=== PATIENT | female | born 1975 | race Caucasian/White ===

== ENCOUNTER 2017-09-17 13:12 | Inpatient (IN) | payer OTHER ==
--- NOTE | 2017-09-17 13:22 | ED PDOC ---
Arrival/HPI - General Chief Complaint: Chest Pain Time Seen by Provider: 09/17/17 13:13 Historian: Patient - History of Present Illness Narrative History of Present Illness (Text): 09/17/17 13:21 42 year old female, whose PMH includes hypertension and diabetes, who presents to the emergency department complaining of intermittent mid-sternal chest pain since two weeks. Patient reports the pain has become worse today with exertion and reported feeling faint this morning associated with palpitations. Patient states she has never done a seen a maintenance worker house trailer, has a stress test, or trestle mainternance laborer done. Patient denies headache, abdominal pain, nausea, vomiting, diarrhea, back pain, or other complaints. Patient also notes recently coming from [place]. Time/Duration: > week Symptom Onset: Gradual Symptom Course: Worsening Context: Exertion, Home Past Medical History - Provider Review Nursing Documentation Reviewed: Yes - Infectious Disease Hx of Infectious Diseases: None - Cardiac Hx Hypertension: Yes - Endocrine/Metabolic Hx Diabetes Mellitus Type 2: Yes - Psychiatric Hx Substance Use: No - Surgical History Hx Tubal Ligation: Yes Family/Social History - Physician Review Nursing Documentation Reviewed: Yes Family/Social History: CAD/ME (uncle) Smoking Status: Never Smoked Hx Alcohol Use: No Hx Substance Use: No Allergies/Home Meds Allergies/Adverse Reactions: Allergies No Known Allergies Allergy (Verified 09/17/17 16:29) Home Medications: Home Meds Medication Instructions Recorded Confirmed Enalapril Maleate [Vasotec] 1 tab PO DAILY 09/17/17 09/17/17 MetFORMIN [glucoPHAGE] 1 tab PO DAILY 09/17/17 09/17/17 Review of Systems - Review of Systems Constitutional: Fatigue ENT: absent: Sinus Congestion Respiratory: absent: Cough Cardiovascular: Chest Pain, Palpitations Gastrointestinal: absent: Abdominal Pain, Vomiting Genitourinary Female: absent: Dysuria Musculoskeletal: absent: Back Pain Skin: absent: Rash Neurological: absent: Headache Physical Exam Vital Signs Reviewed: Yes Vital Signs Temp Pulse Resp BP Pulse Ox 09/17/17 13:34 112 H 18 168/139 H 100 09/17/17 13:12 98.2 F 109 H 18 179/139 H 99 Temperature: Afebrile Blood Pressure: Hypertensive Pulse: Tachycardic Respiratory Rate: Normal Appearance: Positive for: Non-Toxic Mental Status: Positive for: Alert and Oriented X 3 - Systems Exam Head: Present: Atraumatic, Normocephalic Pupils: Present: PERRL Extroacular Muscles: Present: EOMI Conjunctiva: Present: Normal Respiratory/Chest: Present: Clear to Auscultation, Good Air Exchange. No: Respiratory Distress, Accessory Muscle Use, Wheezes, Decreased Breath Sounds, Rales, Retracting, Rhonchi Cardiovascular: Present: Regular Rate and Rhythm, Normal S1, S2. No: Murmurs Abdomen: Present: Normal Bowel Sounds. No: Tenderness, Distention, Peritoneal Signs, Rebound, Guarding Neurological: Present: GCS=15, CN II-XII Intact, Speech Normal Skin: Present: Warm, Dry, Normal Color. No: Rashes Psychiatric: Present: Alert, Oriented x 3, Normal Insight, Normal Concentration Medical Decision Making ED Course and Treatment: 09/17/17 Impression: 42 year old female with unremarkable physical exam c/o chest pain Plan: -- EKG -- Chest X-ray -- Labs -- Aspirin, Plavix -- Reassess and disposition Progress Notes: EKG done upon patient arrival. 09/17/17 13:19 EKG: Ordered, reviewed, and independently interpreted the EKG. Rate : 108 BPM Rhythm : tachycardia Interpretation : normal RI intervals. Prolonged QTc 495. ST elevation lead on leads V2-V5 consistent with anterior STEMI 09/17/17 13:28 Dr. Serna was contacted s/p EKG finding and will evaluate patient at bedside. IV x2 established. Patient placed on continuous cardiac monitoring. 09/17/17 13:28 CODE HEART was called at 13:28. Patient given ASA, Plavix, heparin, Integrillin. 09/17/17 13:42 Patient will be admitted to trestle mainternance laborer under Dr. Serna's care. To be admitted to hospitalist Dr. Olmedo post cath. - Critical Care Critical Care Minutes: 30 minutes Critical Care Time: Excluding Proc Time - Lab Interpretations Lab Results: 09/17/17 13:25 09/17/17 13:25 Lab Results 09/17/17 16:14: POC Glucose (mg/dL) 235 H 09/17/17 13:25: Sodium 135, Potassium 4.0, Chloride 92 L, Carbon Dioxide 25, Anion Gap 21 H, BUN 12, Creatinine 0.8, Est GFR ( Amer) > 60, Est GFR ( Non-Af Amer) > 60, Random Glucose 317 H*, Calcium 9.6, Total Bilirubin 0.8, AST 74 H, ALT 32, Alkaline Phosphatase 156 H, Lactate Dehydrogenase 611, Total Creatine Kinase 504 H, CK-MB (CK-2) 25.0 H, CK-MB (CK-2) % 5.0 H, Troponin I 1.64 H*, Total Protein 9.2 H, Albumin 5.0 H, Globulin 4.2, Albumin/Globulin Ratio 1.2 09/17/17 13:25: PT 11.8, INR 1.03 09/17/17 13:25: WBC 14.6 H, RBC 5.42, Hgb 13.1, Hct 40.6, MCV 74.9 L, MCH 24.2 L , MCHC 32.3, RDW 16.2 H, Plt Count 505 H, MPV 10.1, Gran % 75.0 H, Lymph % (Auto ) 19.9 L, [place] % (Auto) 4.5, Eos % (Auto) 0.3 L, Baso % (Auto) 0.3, Gran # 10.95 H, Lymph # (Auto) 2.9, [place] # (Auto) 0.7 H, Eos # (Auto) 0.0, Baso # (Auto ) 0.05 09/17/17 13:25: Blood Type O POSITIVE, Antibody Screen Negative, BBK History Checked No verified bt I have reviewed the lab results: Yes - RAD Interpretation Radiology Orders: 09/17/17 13:28 CHEST PORTABLE [RAD] Stat 09/17/17 16:59 LUNG PERF & VENT SCAN [NM] Urgent DUPLEX LOWER EXTRM VEIN BILAT [US] Routine Roof Fitter: Radiologist - EKG Interpretation Interpreted by ED Physician: Yes Type: 12 lead EKG - Medication Orders Current Medication Orders: Acetaminophen (Tylenol 325mg Tab) 650 mg PO Q4H PRN PRN Reason: for pain Albuterol/Ipratropium (Duoneb 3 Mg/0.5 Mg (3 Ml) Ud) 3 ml IH Q4H PRN PRN Reason: Shortness of Breath Alprazolam (Xanax) 0.25 mg PO BID PRN PRN Reason: Anxiety Stop: 09/24/17 15:13 Aspirin (Ecotrin) 81 mg PO DAILY MANUEL Atorvastatin Calcium (Lipitor) 80 mg PO DIN MANUEL Clopidogrel Bisulfate (Plavix) 75 mg PO DAILY MANUEL Docusate Sodium (Colace) 100 mg PO BID MANUEL Eptifibatide (Integrilin) 75 mg in 100 mls @ 12.628 mls/hr IV .Q7H56M MANUEL; 2 MCG/KG/MIN PRN Reason: Protocol Stop: 09/18/17 08:00 Last Admin: 09/17/17 15:15 Dose: 12.628 mls/hr eMAR Start Stop Document 09/17/17 15:15 OYELO (Rec: 09/17/17 15:43 [facility] [id number] Intravenous Solution Start Date 09/17/17 Start Time 15:15 Sodium Chloride (Sodium Chloride 0.9%) 1,000 mls @ 50 mls/hr IV .Q20H MANUEL Stop: 09/18/17 07:00 Last Admin: 09/17/17 15:44 Dose: 50 mls/hr eMAR Start Stop Document 09/17/17 15:44 OYELO (Rec: 09/17/17 15:44 OYELO [facility] [id number] Intravenous Solution Start Date 09/17/17 Start Time 15:40 Insulin Human Regular (Humulin R Low) 0 units SC ACHS MANUEL PRN Reason: Protocol Lisinopril (Zestril) 2.5 mg PO DAILY MANUEL Metoprolol Tartrate (Lopressor) 25 mg PO BID MANUEL Ondansetron HCl (Zofran Inj) 4 mg IV ONCE PRN PRN Reason: Nausea/Vomiting Last Admin: 09/17/17 17:16 Dose: 4 mg eMAR Start Stop Document 09/17/17 17:16 OYELO (Rec: 09/17/17 17:16 OYELO [facility] [id number]) Intravenous Solution Start Date 09/17/17 Start Time 17:16 Pantoprazole Sodium (Protonix Ec Tab) 40 mg PO 0600 MANUEL Zolpidem Tartrate (Ambien) 5 mg PO HS PRN PRN Reason: Insomnia Discontinued Medications Aspirin (Aspirin) 325 mg PO STAT STA Stop: 09/17/17 13:29 Last Admin: 09/17/17 13:33 Dose: Clopidogrel Bisulfate (Plavix) 600 mg PO STAT STA Stop: 09/17/17 13:29 Last Admin: 09/17/17 13:32 Dose: 600 mg Heparin Sodium (Porcine) (Heparin) 5,000 units IVP STAT STA PRN Reason: Protocol Stop: 09/17/17 13:37 Last Admin: 09/17/17 13:37 Dose: 5,000 units IVP Administration Document 09/17/17 13:37 SRE (Rec: 09/17/17 13:42 [id number] [id number]) Charges for Administration # of IVP Administrations 1 Insulin Human Regular (Humulin R Low) 0 units SC ACHS MANUEL PRN Reason: Protocol Last Admin: 09/17/17 16:35 Dose: 2 unit MAR Blood Glucose Document 09/17/17 16:35 OYELO (Rec: 09/17/17 16:35 OYELO [id number]) Blood Glucose Finger Stick Blood Glucose (70-120) 235 Subcutaneous Administrations Document 09/17/17 16:35 OYELO (Rec: 09/17/17 16:35 OYELO [id number]) Injection Site MAR Injection Site Right Arm Charges for Administration # of Subcutaneous Administrations 1 Metoprolol Tartrate (Lopressor) 5 mg IVP ONCE ONE Stop: 09/17/17 17:16 - Scribe Statement The provider has reviewed the documentation as recorded by the Wayne Bonner Provider Scribe Attestation: All medical record entries made by the Scribe were at my direction and personally dictated by me. I have reviewed the chart and agree that the record accurately reflects my personal performance of the history, physical exam, medical decision making, and the department course for this patient. I have also personally directed, reviewed, and agree with the discharge instructions and disposition. Disposition/Present on Arrival - Present on Arrival Any Indicators Present on Arrival: No History of DVT/PE: No History of Uncontrolled Diabetes: No Urinary Catheter: No History of Decub. Ulcer: No History Surgical Site Infection Following: None - Disposition Have Diagnosis and Disposition been Completed?: Yes Diagnosis: Acute ST elevation myocardial infarction (STEMI) Disposition: HOSPITALIZED Disposition Time: 13:42 Patient Plan: Admission Condition: GUARDED
[2017-09-17] MEDS ORDERED: Morphine 4 mg/ml ISec ONE ×2 (13:32→14:28)
[2017-09-17] MEDS ORDERED: Lidocaine PF 2% (5 ml) Inj (For Cardiac Arrhy) IV ONE (13:36)
[2017-09-17 13:37] LABS: BASO # 0.05 K/mm3 (0.0-2.0); BASO % 0.3 % (0.0-3.0); EOS % 0.3 % (1.5-5.0); GRAN # 10.95 (1.4-6.5); HEMOGLOBIN 13.1 g/dL (12.0-16.0); LYMPH # 2.9 (1.2-3.4); LYMPH % 19.9 % (22.0-35.0); MEAN CELL VOLUME 74.9 fl (80.0-105.0); MEAN CORPUSCULAR HEMOGLOBIN 24.2 pg (25.0-35.0); MEAN CORPUSCULAR HGB CONC 32.3 g/dl (31.0-37.0); MEAN PLATELET VOLUME 10.1 fl (7.0-11.0); MONO # 0.7 (0.1-0.6); MONO % 4.5 % (1.0-6.0); RBC 5.42 10^6/uL (3.5-6.1); RED CELL DISTRIBUTION WIDTH 16.2 % (11.5-14.5); WHITE BLOOD COUNT 14.6 10^3/ul (4.5-11.0)
[2017-09-17] MEDS ORDERED: Verapamil 2 ML ONE (13:39)
[2017-09-17] MEDS ORDERED: Nitroglycerin 50mg in D5W 50 MG/250 ML BOTTLE IV ONE (13:39)
[2017-09-17] MEDS ORDERED: Iodixanol 320 MG/ML 200 ML BOTTLE IV ONE (13:39)
[2017-09-17] MEDS ORDERED: Eptifibatide 20 mg/10mL Inj IVP ONE ×2 (13:39→13:58)
[2017-09-17] MEDS ORDERED: Iohexol 350mgl/ml 50 ML ONE (13:39)
[2017-09-17] MEDS ORDERED: Phenylephrine 10 mg/ml Inj ONE (13:41)
[2017-09-17 13:43] LABS: INR 1.03 (0.93-1.08); PROTHROMBIN TIME 11.8 SECONDS (9.4-12.5)
[2017-09-17 13:52] LABS: ALB/GLOB RATIO 1.2 (1.1-1.8); ALT/SGPT 32 U/L (7-56); AST/SGOT 74 U/L (14-36); BLOOD UREA NITROGEN 12 mg/dL (7-21); CALCIUM 9.6 mg/dL (8.4-10.5); GFR AFRICAN-AMERICAN > 60; GFR NON-AFRICAN AMERICAN > 60
--- NOTE | 2017-09-17 13:56 | RAD ---
Date of service: 09/17/2017 HISTORY: chest pain COMPARISON: No prior. FINDINGS: LUNGS: No active pulmonary disease. PLEURA: No significant pleural effusion identified, no pneumothorax apparent. CARDIOVASCULAR: Normal. OSSEOUS STRUCTURES: No significant abnormalities. VISUALIZED UPPER ABDOMEN: Normal. OTHER FINDINGS: None. IMPRESSION: No active disease.
[2017-09-17 13:59] LABS: TROPONIN I 1.64 ng/mL
[2017-09-17] MEDS ORDERED: Midazolam 2 MG/2 ML VIAL ONE (14:02)
[2017-09-17] MEDS ORDERED: Eptifibatide 0.75 mg/ml 75 MG/100 ML BOTTLE IV ONE (14:33)
[2017-09-17] MEDS ORDERED: Iodixanol 320 MG/ML 100 ML BOTTLE IV ONE (14:42)
[2017-09-17] MEDS ORDERED: Sodium Chloride 0.9% 1,000 ML IV SCH (15:15)
[2017-09-17] MEDS: Eptifibatide 0.75 mg/ml 75 MG/100 ML BOTTLE IV SCH ×2 (15:15→22:22)
--- NOTE | 2017-09-17 15:45 | CPOSTOP ---
DATE: 09/17/2017 CARDIOVASCULAR LAB POSTPROCEDURE NOTE DICTATING PHYSICIAN: Michael Serna MD HOOP MAKER HELPER MACHINE: MICHELLE Costa, instructional support technician. TYPE OF ANESTHESIA: Moderate conscious sedation, total 2 mg of Versed, 100 of fentanyl and 2 mg of morphine given periodically, started at 1 mg Versed and 50 fentanyl. PRE-PROCEDURE DIAGNOSES: Code ST elevation myocardial infarction, anterior wall myocardial infarction. PROCEDURES PERFORMED: 1. Left heart catheterization. 2. Stenting of left anterior descending. FINDINGS: Single-vessel left anterior descending disease. POST PROCEDURE CONDITION: Stable. VASCULAR ACCESS SITE: Left radial. CLOSURE DEVICE: TR band. TOTAL RADIATION DOSE: 10960.7 milligray unit. TOTAL FLUORO TIME: 13.6 minutes. Michael Serna MD
[2017-09-17] MEDS ORDERED: Albuterol-Ipratrop 3 mg / 0.5 (3 ml) UD IH PRN (15:59)
--- NOTE | 2017-09-17 16:02 | CP.CCUPN ---
CCU Subjective - Physician Review Subjective (Free Text): Shailesh Horner DO PGY-1, ICU consult note for Dr. Wilkins CC: chest pain This is a 42 year old [place] female who presented to the ED today for mid- sternal chest pain for the past 3 weeks. Pt described the pain as intermittent, 8/10 "squeezing" chest pain that radiates to the armpits and both sides of the neck. Pt states that the pain has been self-limited, and did not have any exacerbating or alleviating factors. Pt was evaluated at [facility] for the chest pain at the beginning of August, where she states she had a cxr and ecg which was "normal" and she was discharged home. At this point, she attributed the pain to reflux and took OTC medications, but the pain continued to return. This morning, pt developed weakness and dizziness, which went away on its own. However, this afternoon the pain did not go away on its own, and was worse on exertion/walking. Pt's EKG in the ED showed sinus tachycardia at [address] elevations in leads v2-v5. CODE HEART was called. She received ASA 325 mg PO, Plavix 600 mg PO and Morphine for pain. Pt was sent to the geotechnical laboratory technician, where she was found to have 100% occlusion of the LAD. She received balloon angioplasty of the LAD with placement of KULWINDER x2 in the LAD. She is currently on an Integrilin gtt. Pt was seen and examined at bedside. Pt states that the chest pain is currently rated a 2-3/10; "achy, crampy" in nature, nonradiating. But she reports she feels much better, other than mild fatigue. She endorses vaginal bleeding, and states that she is on her menstrual cycle. She denies fever, headache, dizziness , lightheadedness, abdominal pain, n/v/d, pain on urination, PMH: HTN, DM, Asthma, left sided evans's palsy, ectopic PSH: Tubal ligation (13 years ago) Meds: FHx: father hx of CVA at age 55; Mother hx of scleroderma CCU Objective - Vital Signs / Intake & Output Vital Signs (Last 4 hours): Vital Signs Temp Pulse Resp BP Pulse Ox 09/17/17 14:09 98.2 F 100 H 18 168/139 H 100 09/17/17 13:34 112 H 18 168/139 H 100 09/17/17 13:12 98.2 F 109 H 18 179/139 H 99 Intake and Output (Last 8hrs): Intake & Output 09/17/17 09/17/17 09/17/17 06:59 14:59 22:59 Weight 75.206 kg - Physical Exam Head: Positive for: Atraumatic, Normocephalic Pupils: Positive for: PERRL Extroacular Muscles: Positive for: EOMI Conjunctiva: Positive for: Normal Respiratory/Chest: Positive for: Clear to Auscultation, Good Air Exchange. Negative for: Respiratory Distress, Accessory Muscle Use, Wheezes, Decreased Breath Sounds, Rales, Retracting, Rhonchi Cardiovascular: Positive for: Regular Rate and Rhythm, Normal S1, S2. Negative for: Murmurs Abdomen: Positive for: Normal Bowel Sounds. Negative for: Tenderness, Distention, Peritoneal Signs, Rebound, Guarding Neurological: Positive for: GCS=15, CN II-XII Intact, Speech Normal Skin: Positive for: Warm, Dry, Normal Color. Negative for: Rashes Psychiatric: Positive for: Alert, Oriented x 3, Normal Insight, Normal Concentration - Medications Active Medications: Active Medications Generic Name Dose Route Start Last Admin Trade Name Freq PRN Reason Stop Dose Admin Acetaminophen 650 mg 09/17/17 15:12 Tylenol 325mg Tab PO Q4H PRN for pain Alprazolam 0.25 mg 09/17/17 15:12 Xanax PO 09/24/17 15:13 BID PRN Anxiety Aspirin 81 mg 09/18/17 10:00 Ecotrin PO DAILY [facility] Atorvastatin Calcium 80 mg 09/17/17 17:00 Lipitor PO DIN [facility] Clopidogrel Bisulfate 75 mg 09/18/17 10:00 Plavix PO DAILY [facility] Docusate Sodium 100 mg 09/17/17 18:00 Colace PO BID [facility] Eptifibatide 75 mg in 100 mls @ 12.628 mls/hr 09/17/17 13:45 09/17/17 15:15 Integrilin IV 09/18/17 08:00 12.628 mls/hr .Q7H56M MANUEL Administration Protocol 2 MCG/KG/MIN Sodium Chloride 1,000 mls @ 50 mls/hr 09/17/17 15:15 09/17/17 15:44 Sodium Chloride 0.9% IV 09/18/17 07:00 50 mls/hr .Q20H MANUEL Administration Insulin Human Regular 0 units 09/17/17 16:30 Humulin R Low SC ACHS [facility] Protocol Lisinopril 2.5 mg 09/18/17 10:00 Zestril PO DAILY MANUEL Metoprolol Tartrate 25 mg 09/17/17 18:00 Lopressor PO BID MANUEL Ondansetron HCl 4 mg 09/17/17 15:12 Zofran Inj IV ONCE PRN Nausea/Vomiting Zolpidem Tartrate 5 mg 09/17/17 15:12 Ambien PO HS PRN Insomnia - Patient Studies Lab Studies: Lab Studies 09/17/17 09/17/17 09/17/17 Range/Units 13:25 13:25 13:25 WBC 14.6 H (4.5-11.0) 10^3/ul RBC 5.42 (3.5-6.1) 10^6/uL Hgb 13.1 (12.0-16.0) g/dL Hct 40.6 (36.0-48.0) % MCV 74.9 L (80.0-105.0) fl MCH 24.2 L (25.0-35.0) pg MCHC 32.3 (31.0-37.0) g/dl RDW 16.2 H (11.5-14.5) % Plt Count 505 H (120.0-450.0) 10^3/uL MPV 10.1 (7.0-11.0) fl Gran % 75.0 H (50.0-68.0) % Lymph % (Auto) 19.9 L (22.0-35.0) % [place] % (Auto) 4.5 (1.0-6.0) % Eos % (Auto) 0.3 L (1.5-5.0) % Baso % (Auto) 0.3 (0.0-3.0) % Gran # 10.95 H (1.4-6.5) Lymph # (Auto) 2.9 (1.2-3.4) [place] # (Auto) 0.7 H (0.1-0.6) Eos # (Auto) 0.0 (0.0-0.7) Baso # (Auto) 0.05 (0.0-2.0) K/mm3 PT 11.8 (9.4-12.5) SECONDS INR 1.03 (0.93-1.08) Sodium 135 (132-148) mmol/L Potassium 4.0 (3.6-5.0) mmol/L Chloride 92 L (98-107) mmol/L Carbon Dioxide 25 (21-33) mmol/L Anion Gap 21 H (10-20) BUN 12 (7-21) mg/dL Creatinine 0.8 (0.7-1.2) mg/dl Est GFR ( Amer) > 60 Est GFR (Non-Af Amer) > 60 Random Glucose 317 H* (70-110) mg/dL Calcium 9.6 (8.4-10.5) mg/dL Total Bilirubin 0.8 (0.2-1.3) mg/dL AST 74 H (14-36) U/L ALT 32 (7-56) U/L Alkaline Phosphatase 156 H (38-126) U/L Lactate Dehydrogenase 611 (333-699) U/L Total Creatine Kinase 504 H (35-230) U/L CK-MB (CK-2) 25.0 H (0.0-3.6) ng/mL CK-MB (CK-2) % 5.0 H (2.5-3.0) % Troponin I 1.64 H* ng/mL Total Protein 9.2 H (5.8-8.3) g/dL Albumin 5.0 H (3.0-4.8) g/dL Globulin 4.2 gm/dL Albumin/Globulin Ratio 1.2 (1.1-1.8) Blood Type Antibody Screen BBK History Checked 09/17/17 Range/Units 13:25 WBC (4.5-11.0) 10^3/ul RBC (3.5-6.1) 10^6/uL Hgb (12.0-16.0) g/dL Hct (36.0-48.0) % MCV (80.0-105.0) fl MCH (25.0-35.0) pg MCHC (31.0-37.0) g/dl RDW (11.5-14.5) % Plt Count (120.0-450.0) 10^3/uL MPV (7.0-11.0) fl Gran % (50.0-68.0) % Lymph % (Auto) (22.0-35.0) % [place] % (Auto) (1.0-6.0) % Eos % (Auto) (1.5-5.0) % Baso % (Auto) (0.0-3.0) % Gran # (1.4-6.5) Lymph # (Auto) (1.2-3.4) [place] # (Auto) (0.1-0.6) Eos # (Auto) (0.0-0.7) Baso # (Auto) (0.0-2.0) K/mm3 PT (9.4-12.5) SECONDS INR (0.93-1.08) Sodium (132-148) mmol/L Potassium (3.6-5.0) mmol/L Chloride (98-107) mmol/L Carbon Dioxide (21-33) mmol/L Anion Gap (10-20) BUN (7-21) mg/dL Creatinine (0.7-1.2) mg/dl Est GFR ( Amer) Est GFR (Non-Af Amer) Random Glucose (70-110) mg/dL Calcium (8.4-10.5) mg/dL Total Bilirubin (0.2-1.3) mg/dL AST (14-36) U/L ALT (7-56) U/L Alkaline Phosphatase (38-126) U/L Lactate Dehydrogenase (333-699) U/L Total Creatine Kinase (35-230) U/L CK-MB (CK-2) (0.0-3.6) ng/mL CK-MB (CK-2) % (2.5-3.0) % Troponin I ng/mL Total Protein (5.8-8.3) g/dL Albumin (3.0-4.8) g/dL Globulin gm/dL Albumin/Globulin Ratio (1.1-1.8) Blood Type O POSITIVE Antibody Screen Negative BBK History Checked No verified bt Laboratory Results - last 24 hr 09/17/17 09/17/17 09/17/17 13:25 13:25 13:25 WBC 14.6 H RBC 5.42 Hgb 13.1 Hct 40.6 MCV 74.9 L MCH 24.2 L MCHC 32.3 RDW 16.2 H Plt Count 505 H MPV 10.1 Gran % 75.0 H Lymph % (Auto) 19.9 L [place] % (Auto) 4.5 Eos % (Auto) 0.3 L Baso % (Auto) 0.3 Gran # 10.95 H Lymph # (Auto) 2.9 [place] # (Auto) 0.7 H Eos # (Auto) 0.0 Baso # (Auto) 0.05 PT 11.8 INR 1.03 Sodium Potassium Chloride Carbon Dioxide Anion Gap BUN Creatinine Est GFR ( Amer) Est GFR (Non-Af Amer) Random Glucose Calcium Total Bilirubin AST ALT Alkaline Phosphatase Lactate Dehydrogenase Total Creatine Kinase CK-MB (CK-2) CK-MB (CK-2) % Troponin I Total Protein Albumin Globulin Albumin/Globulin Ratio Blood Type O POSITIVE Antibody Screen Negative BBK History Checked No verified bt 09/17/17 13:25 WBC RBC Hgb Hct MCV MCH MCHC RDW Plt Count MPV Gran % Lymph % (Auto) [place] % (Auto) Eos % (Auto) Baso % (Auto) Gran # Lymph # (Auto) [place] # (Auto) Eos # (Auto) Baso # (Auto) PT INR Sodium 135 Potassium 4.0 Chloride 92 L Carbon Dioxide 25 Anion Gap 21 H BUN 12 Creatinine 0.8 Est GFR ( Amer) > 60 Est GFR (Non-Af Amer) > 60 Random Glucose 317 H* Calcium 9.6 Total Bilirubin 0.8 AST 74 H ALT 32 Alkaline Phosphatase 156 H Lactate Dehydrogenase 611 Total Creatine Kinase 504 H CK-MB (CK-2) 25.0 H CK-MB (CK-2) % 5.0 H Troponin I 1.64 H* Total Protein 9.2 H Albumin 5.0 H Globulin 4.2 Albumin/Globulin Ratio 1.2 Blood Type Antibody Screen BBK History Checked EKG/Cardiology Studies: Cardiology / EKG Studies 09/17/17 13:28 ELECTROCARDIOGRAM Stat Comment: Reason For Exam: chest pain 09/17/17 15:10 ELECTROCARDIOGRAM Urgent Comment: 12 lead EKG upon arrival in unit Reason For Exam: post ptca 09/17/17 15:15 ELECTROCARDIOGRAM DAILY Comment: Reason For Exam: chest pain 09/18/17 08:00 EKG [ELECTROCARDIOGRAM] DAILY Comment: Code stemi Reason For Exam: CAD, S/p PTCA PERFORMING PHYSICIAN/PROVIDER:: Michael Serna 09/18/17 15:15 ELECTROCARDIOGRAM DAILY Comment: Reason For Exam: chest pain 09/19/17 08:00 EKG [ELECTROCARDIOGRAM] DAILY Comment: Code stemi Reason For Exam: CAD, S/p PTCA PERFORMING PHYSICIAN/PROVIDER:: Michael Serna 09/20/17 08:00 EKG [ELECTROCARDIOGRAM] DAILY Comment: Code stemi Reason For Exam: CAD, S/p PTCA PERFORMING PHYSICIAN/PROVIDER:: Michael Serna Critical Care Progress Note - Nutrition Nutrition: Nutrition Category Date Time Status Heart Healthy Diet [DIET] Diets 09/17/17 Dinner Active Liquid Diet [DIET] Diets 09/17/17 Lunch Ordered
--- NOTE | 2017-09-17 16:12 | CARD ---
APPROVED REPORT Date of service: 09/17/2017 EKG Measurement Heart [id number] <Conclusion> Age and gender specific ECG analysis Sinus tachycardia with fusion complexes Possible Left atrial enlargement Left ventricular hypertrophy Anteroseptal infarct, possibly acute Lateral injury pattern ACUTE HI Abnormal ECG
--- NOTE | 2017-09-17 16:12 | CARD ---
APPROVED REPORT Date of service: 09/17/2017 EKG Measurement Heart [id number] <Conclusion> Age and gender specific ECG analysis Sinus tachycardia Minimal voltage criteria for LVH, may be normal variant Anteroseptal infarct, possibly acute T wave abnormality, consider lateral ischemia ACUTE AR Abnormal ECG
--- NOTE | 2017-09-17 16:15 | CP.PCM.HP ---
<YonnyHuy - Last Filed: 09/17/17 16:55> History of Present Illness - History of Present Illness History of Present Illness: Huy Blancas D.O. PGY-2, Internal Medicine Resident, Art. on Duty HPI: Ms. Castro is a 42 year old female with a past medical history significant for NIDDM2, HTN, mild intermittent asthma and Burns's Palsy who presented for chest pain. Patient reports that three weeks ago she began to experience an intermittent substernal squeezing pressure-like chest pain that radiated to bilateral neck and upper extremities that she rated as a 8/10. She reports that the her pain was not associated specifically with any activity, eating or body position and that it would come at random times during the day. The pain was self limited, usually lasting around 7 minutes, and there were no aggravating or alleviating factors. She denies any associated symptoms prior to today. Patient believed the pain to be related to gastric reflux and reports no relief with OTC antacids. This morning when she awoke she began to experience the pain but that it was not self limited and was constant with associated dizziness, palpitations and generalized weakness. This prompted patient to be seen in the ED for further evaluation. Of note, she was seen two weeks ago at [facility] for the same symptoms and was discharged with a diagnosis of GERD. An EKG and Chest X-Ray were normal at that time, per patient. Also of note, patient is a resident of [place] and has been visiting family in [place] as well as [place]. She currently denies any other complaints including fever, chills, headache, changes in her vision, sore throat, lower extremity swelling, SOB, cough, wheezing, hemoptysis, abdominal pain, N/V/D/C, hematemesis, melena, changes in urine output, skin changes, or any numbness/tingling of any extremity. While in the ED, patient was found to ST elevation in leads V2-5 on 12-lead EKG and a Code Heart was called. She was given loading doses of both ASA and Plavix as well as started on an Integrilin drip prior to being emergently transferred to the cardiac laboratory administrative director. She was found to have complete occlusion of her pLAD, where two KULWINDER were placed, as well as stenosis of the dLAD, which was treated with balloon angioplasty. PMH: NIDDM2, HTN, mild intermittent asthma, ectopic and Burns's Palsy PSH: Tubal Ligation s/p ectopic (~15 years ago), three uncomplicated vaginal deliveries Family History: Mother-Scleroderma; Father-CVA at age 55 Social History: Denies tobacco, alcohol or illicit drug abuse; Lives in [place] with children; Employed as a [employer]ician Allergies: NKDA Home Medications: Enalapril, Metformin and albuterol inhaler PMD: Seen at unspecified clinic in [place] but patient reports that she hasn't been in a "long time" Javascript Software Engineer: None Present on Admission - Present on Admission Any Indicators Present on Admission: No Review of Systems - Review of Systems Review of Systems: As per HPI, otherwise negative Past Patient History - Infectious Disease Hx of Infectious Diseases: None - Past Social History Smoking Status: Never Smoked - CARDIAC Hx Hypertension: Yes - ENDOCRINE/METABOLIC Hx Diabetes Mellitus Type 2: Yes - PSYCHIATRIC Hx Substance Use: No - SURGICAL HISTORY Hx Tubal Ligation: Yes Meds Allergies/Adverse Reactions: Allergies Allergy/AdvReac Type Severity Reaction Status Date / Time No Known Allergies Allergy Verified 09/17/17 16:29 Physical Exam - Constitutional Appears: Non-toxic, No Acute Distress - Head Exam Head Exam: ATRAUMATIC, NORMOCEPHALIC - Eye Exam Eye Exam: EOMI, Normal appearance, PERRL Pupil Exam: NORMAL ACCOMODATION, PERRL - ENT Exam ENT Exam: Mucous Membranes Moist, Normal Exam - Neck Exam Neck exam: Positive for: Full Rom, Normal Inspection. Negative for: Lymphadenopathy, Tenderness - Respiratory Exam Respiratory Exam: Clear to Auscultation Bilateral, NORMAL BREATHING PATTERN. absent: Accessory Muscle Use, Decreased Breath Sounds, Rhonchi, Wheezes, Respiratory Distress - Cardiovascular Exam Cardiovascular Exam: Tachycardia, REGULAR RHYTHM, +S1, +S2. absent: Bradycardia , JVD, Rubs - GI/Abdominal Exam GI & Abdominal Exam: Normal Bowel Sounds, Soft. absent: Tenderness - Extremities Exam Extremities exam: Positive for: normal capillary refill, normal inspection (TR band to left upper extremity with no surrounding erythema, signs of hematoma, or discharge; Distal pulses and sensation in LUE intact), pedal pulses present. Negative for: calf tenderness, joint swelling, pedal edema, tenderness - Neurological Exam Neurological exam: Alert, Oriented x3 - Psychiatric Exam Psychiatric exam: Normal Affect, Normal Mood - Skin Skin Exam: Dry, Intact, Normal Color, Warm Results - Vital Signs Recent Vital Signs: Last Vital Signs Temp 98.2 F 09/17/17 14:09 Pulse 100 H 09/17/17 14:09 Resp 18 09/17/17 14:09 BP 168/139 H 09/17/17 14:09 Pulse Ox 100 09/17/17 14:09 - Labs Result Diagrams: 09/17/17 13:25 09/17/17 13:25 Labs: Laboratory Results - last 24 hr 09/17/17 09/17/17 09/17/17 13:25 13:25 13:25 WBC 14.6 H RBC 5.42 Hgb 13.1 Hct 40.6 MCV 74.9 L MCH 24.2 L MCHC 32.3 RDW 16.2 H Plt Count 505 H MPV 10.1 Gran % 75.0 H Lymph % (Auto) 19.9 L [place] % (Auto) 4.5 Eos % (Auto) 0.3 L Baso % (Auto) 0.3 Gran # 10.95 H Lymph # (Auto) 2.9 [place] # (Auto) 0.7 H Eos # (Auto) 0.0 Baso # (Auto) 0.05 PT 11.8 INR 1.03 Sodium Potassium Chloride Carbon Dioxide Anion Gap BUN Creatinine Est GFR ( Amer) Est GFR (Non-Af Amer) Random Glucose Calcium Total Bilirubin AST ALT Alkaline Phosphatase Lactate Dehydrogenase Total Creatine Kinase CK-MB (CK-2) CK-MB (CK-2) % Troponin I Total Protein Albumin Globulin Albumin/Globulin Ratio Blood Type O POSITIVE Antibody Screen Negative BBK History Checked No verified bt 09/17/17 13:25 WBC RBC Hgb Hct MCV MCH MCHC RDW Plt Count MPV Gran % Lymph % (Auto) [place] % (Auto) Eos % (Auto) Baso % (Auto) Gran # Lymph # (Auto) [place] # (Auto) Eos # (Auto) Baso # (Auto) PT INR Sodium 135 Potassium 4.0 Chloride 92 L Carbon Dioxide 25 Anion Gap 21 H BUN 12 Creatinine 0.8 Est GFR ( Amer) > 60 Est GFR (Non-Af Amer) > 60 Random Glucose 317 H* Calcium 9.6 Total Bilirubin 0.8 AST 74 H ALT 32 Alkaline Phosphatase 156 H Lactate Dehydrogenase 611 Total Creatine Kinase 504 H CK-MB (CK-2) 25.0 H CK-MB (CK-2) % 5.0 H Troponin I 1.64 H* Total Protein 9.2 H Albumin 5.0 H Globulin 4.2 Albumin/Globulin Ratio 1.2 Blood Type Antibody Screen BBK History Checked Assessment & Plan - Assessment and Plan (Free Text) Assessment: 42 year old female with a past medical history significant for NIDDM2, HTN, mild intermittent asthma and Burns's Palsy who presented for chest pain while visiting from [place]. While in the ED, patient was found to ST elevation in leads V2-5 on 12-lead EKG and a Code Heart was called. She was given loading doses of both ASA and Plavix as well as started on an Integrilin drip prior to being emergently transferred to the cardiac laboratory administrative director. She was found to have complete occlusion of her pLAD, where two KULWINDER were placed, as well as stenosis of the dLAD, which was treated with balloon angioplasty. Plan: 1. Acute MA w/ Complete LAD Occlusion s/p Angioplasty and two KULWINDER -EKG showed sinus tachycardia with ST elevation in leads V2-5 -Troponin elevated at 1.64 with serial troponins pending -Lipid panel, A1c and TSH pending -Integrilin gtt for 18 hours -Lopressor 25mg BID and daily low dose ASA, Plavix, Lipitor, and Lisinopril -Ambien, Xanax and Tylenol PRN -Normal Saline at 50mls/hr -AM EKG and Echo pending -Cardiology consulted, all recommendations appreciated 2. R/O Pulmonary Embolism -Continued angina in setting of tachycardia and recent travel -V/Q Scan and LE Doppler ordered and pending 3. History of NIDDM2 -SSI-Low and Accuchecks ACHS -A1c pending -Physician Support Coordinator consulted, all recommendations appreciated 4. History of Asthma -Duonebs PRN Diet: Heart Healthy/Moderate Carbohydrate Consistent GI Prophylaxis: Protonix DVT Prophylaxis: Heparin Patient seen and case discussed with attending, Dr. Jansen. Lorri PGY2 - Date & Time Date: 09/17/17 Time: 16:24 <Geetha Jansen - Last Filed: 09/18/17 12:33> Results - Vital Signs Recent Vital Signs: Last Vital Signs Temp 98.2 F 09/17/17 23:10 Pulse 113 H 09/18/17 09:25 Resp 19 09/17/17 22:40 BP 119/54 L 09/18/17 09:25 Pulse Ox 100 09/17/17 22:40 - Labs Result Diagrams: 09/18/17 06:10 09/18/17 06:10 Labs: Laboratory Results - last 24 hr 09/17/17 09/17/17 09/17/17 13:25 13:25 13:25 WBC 14.6 H RBC 5.42 Hgb 13.1 Hct 40.6 MCV 74.9 L MCH 24.2 L MCHC 32.3 RDW 16.2 H Plt Count 505 H MPV 10.1 Gran % 75.0 H Lymph % (Auto) 19.9 L [place] % (Auto) 4.5 Eos % (Auto) 0.3 L Baso % (Auto) 0.3 Gran # 10.95 H Lymph # (Auto) 2.9 [place] # (Auto) 0.7 H Eos # (Auto) 0.0 Baso # (Auto) 0.05 PT 11.8 INR 1.03 Sodium Potassium Chloride Carbon Dioxide Anion Gap BUN Creatinine Est GFR ( Amer) Est GFR (Non-Af Amer) POC Glucose (mg/dL) Random Glucose Calcium Phosphorus Magnesium Total Bilirubin AST ALT Alkaline Phosphatase Lactate Dehydrogenase Total Creatine Kinase CK-MB (CK-2) CK-MB (CK-2) % Troponin I Total Protein Albumin Globulin Albumin/Globulin Ratio Triglycerides Cholesterol LDL Cholesterol Direct HDL Cholesterol TSH 3rd Generation Blood Type O POSITIVE Blood Type Confirm Antibody Screen Negative BBK History Checked No verified bt 09/17/17 09/17/17 09/17/17 13:25 16:14 19:30 WBC RBC Hgb Hct MCV MCH MCHC RDW Plt Count MPV Gran % Lymph % (Auto) [place] % (Auto) Eos % (Auto) Baso % (Auto) Gran # Lymph # (Auto) [place] # (Auto) Eos # (Auto) Baso # (Auto) PT INR Sodium 135 Potassium 4.0 Chloride 92 L Carbon Dioxide 25 Anion Gap 21 H BUN 12 Creatinine 0.8 Est GFR ( Amer) > 60 Est GFR (Non-Af Amer) > 60 POC Glucose (mg/dL) 235 H Random Glucose 317 H* Calcium 9.6 Phosphorus Magnesium Total Bilirubin 0.8 AST 74 H ALT 32 Alkaline Phosphatase 156 H Lactate Dehydrogenase 611 Total Creatine Kinase 504 H CK-MB (CK-2) 25.0 H CK-MB (CK-2) % 5.0 H Troponin I 1.64 H* Total Protein 9.2 H Albumin 5.0 H Globulin 4.2 Albumin/Globulin Ratio 1.2 Triglycerides Cholesterol LDL Cholesterol Direct HDL Cholesterol [facility] Blood Type Blood Type Confirm O POSITIVE Antibody Screen BBK History Checked 09/17/17 09/17/17 09/17/17 19:30 19:30 21:43 WBC 16.7 H RBC 4.98 Hgb 12.1 Hct 37.4 MCV 75.1 L MCH 24.3 L MCHC 32.4 RDW 16.2 H Plt Count 449 MPV 9.9 Gran % 75.8 H Lymph % (Auto) 16.3 L [place] % (Auto) 7.6 H Eos % (Auto) 0.1 L Baso % (Auto) 0.2 Gran # 12.62 H Lymph # (Auto) 2.7 [place] # (Auto) 1.3 H Eos # (Auto) 0.0 Baso # (Auto) 0.03 PT INR Sodium 131 L Potassium 3.5 L Chloride 92 L Carbon Dioxide 27 Anion Gap 16 BUN 12 Creatinine 0.7 Est GFR ( Amer) > 60 Est GFR (Non-Af Amer) > 60 POC Glucose (mg/dL) 267 H Random Glucose 337 H* Calcium 8.4 Phosphorus Magnesium Total Bilirubin AST ALT Alkaline Phosphatase Lactate Dehydrogenase 6365 H Total Creatine Kinase 40595 H CK-MB (CK-2) 291.0 H CK-MB (CK-2) % 2.6 Troponin I 327.00 H* D Total Protein Albumin Globulin Albumin/Globulin Ratio Triglycerides Cholesterol LDL Cholesterol Direct HDL Cholesterol TSH [address] [place] [address] Blood Type Blood Type Confirm Antibody Screen BBK History Checked 09/18/17 09/18/17 09/18/17 06:10 06:10 06:10 WBC 13.9 H RBC 4.60 Hgb 11.4 L Hct 34.0 L MCV 73.9 L MCH 24.8 L MCHC 33.5 RDW 16.0 H Plt Count 413 MPV 9.8 Gran % 65.0 Lymph % (Auto) 24.2 [place] % (Auto) 10.4 H Eos % (Auto) 0.2 L Baso % (Auto) 0.2 Gran # 9.03 H Lymph # (Auto) 3.4 [place] # (Auto) 1.4 H Eos # (Auto) 0.0 Baso # (Auto) 0.03 PT INR Sodium 132 Potassium 3.8 Chloride 94 L Carbon Dioxide 31 Anion Gap 11 BUN 12 Creatinine 0.8 Est GFR ( Amer) > 60 Est GFR (Non-Af Amer) > 60 POC Glucose (mg/dL) Random Glucose 278 H Calcium 8.5 Phosphorus 3.0 Magnesium 1.8 Total Bilirubin 1.1 AST 730 H D ALT 118 H Alkaline Phosphatase 109 Lactate Dehydrogenase 6240 H Total Creatine Kinase 5623 H CK-MB (CK-2) 131.0 H CK-MB (CK-2) % 2.3 L Troponin I 212.00 H* D Total Protein 6.7 Albumin 3.7 Globulin 3.0 Albumin/Globulin Ratio 1.2 Triglycerides 165 H Cholesterol 171 LDL Cholesterol Direct 109 HDL Cholesterol 40 TSH 3rd Generation 1.45 Blood Type Blood Type Confirm Antibody Screen BBK History Checked 09/18/17 07:34 WBC RBC Hgb Hct MCV MCH MCHC RDW Plt Count MPV Gran % Lymph % (Auto) [place] % (Auto) Eos % (Auto) Baso % (Auto) Gran # Lymph # (Auto) [place] # (Auto) Eos # (Auto) Baso # (Auto) PT INR Sodium Potassium Chloride Carbon Dioxide Anion Gap BUN Creatinine Est GFR ( Amer) Est GFR (Non-Af Amer) POC Glucose (mg/dL) 257 H Random Glucose Calcium Phosphorus Magnesium Total Bilirubin AST ALT Alkaline Phosphatase Lactate Dehydrogenase Total Creatine Kinase CK-MB (CK-2) CK-MB (CK-2) % Troponin I Total Protein Albumin Globulin Albumin/Globulin Ratio Triglycerides Cholesterol LDL Cholesterol Direct HDL Cholesterol TSH 3rd Generation Blood Type Blood Type Confirm Antibody Screen BBK History Checked Attending/Attestation - Attestation I have personally seen and examined this patient.: Yes I have fully participated in the care of the patient.: Yes I have reviewed all pertinent clinical information: Yes Notes (Text): Patient seen and examined by me at 17:00 with resident 09/17/17. Case including HPI, physical exam, and physical assessment and plan discussed with resident. Agree with above with following additions/corrections. Patient is a 42-year-old female with past medical history significant for non- insulin-dependent type 2 diabetes, hypertension, mild intermittent asthma, and Burns's palsy that presented to the emergency room with left-sided chest pain. Patient states that the pain started approximately 3 weeks ago. Pain has been intermittent. Pressure-like in nature and lasting approximately 7 minutes. She was seen at [facility] in [place] approximately 2 weeks ago. At that time she was diagnosed with GERD and was given treatment for GERD. Patient states that her EKG at that time was normal. The pain continued. Morning of admission patient states that the pain became constant and radiating to her jaw and bilateral arms. Patient did not try anything at home for this. She did have associated diaphoresis. She also had associated dizziness. Patient recently traveled here from [place]. She denies any previous history of chest pain. No nausea, vomiting, or abdominal pain. No fevers or chills. No palpitations. No neck pain or back pain. No dysuria. No diarrhea or constipation. Patient does not diet and exercise at home. She states that she takes metformin for diabetes however her blood sugars usually run in the 200s. In the ED, patient was found to have STEMI. Patient was given aspirin and Plavix and was started on Integrilin drip. Patient was taken to cardiac laboratory administrative director. All 14 point review of systems reviewed by me. See above HPI. All the other systems are negative. Physical exam: Gen: Awake and alert lying in bed in no acute distress HEENT: Normocephalic, atraumatic. Extraocular muscles intact, pupils equal reactive, no scleral icterus. Oropharynx is pink and moist, no pharyngeal erythema or exudate appreciated. Neck is supple. Hearing grossly intact. Ears and nose externally unremarkable. Cardiovascular: Normal rhythm, normal S1-S2. No murmurs, rubs, or gallops appreciated Pulmonary: Normal respiratory effort. No rhonchi, rales or wheezing appreciated. Gastrointestinal: Soft, nontender, nondistended, positive bowel sounds all 4 quadrants, no guarding Musculoskeletal: Normal range of motion all extremities, no calf tenderness, no CVA tenderness. Positive TR band left wrist in place. Central nervous system: AAO 3. Cranial nerves 2 through 12 grossly intact. 5 out of 5 muscle strength all extremities. Sensation intact. Dermatologic: Skin warm and dry Assessment and plan: Patient is a 42-year-old female with past medical history significant for [id number] type 2 diabetes, hypertension, mild intermittent asthma, and Burns's palsy that presented to the emergency room with left-sided chest pain. Patient found to have an acute MA. 1. STEMI, status post cardiac cath which showed complete occlusion of pLAD, s/p KULWINDER x 2; stenosis of the dLAD, which was treated with balloon angioplasty. Troponin elevated at 1.64. Elevated CK. Follow-up lipid panel, hemoglobin A1c, and TSH. Continue with Integrilin drip. Continue aspirin, Plavix, Lipitor, Lopressor, and lisinopril. Pending 2-D echo. Cardiology following, recommendations appreciated. Monitor in ICU for now. 2. Sinus tachycardia. Patient with recent travel. Will get VQ scan. Monitor on telemetry 3. Leukocytosis. Likely reactive. Continue to monitor 4. [id number] type 2 diabetes with hyperglycemia. Patient takes metformin at home, she is unsure of the dose. Patient states her blood sugars run in the 200s at home. We'll place on insulin sliding scale for now. Follow- up hemoglobin A1c and add medications as needed. Monitor Accu-Cheks. Patient counseled on diet and exercise 5. Essential hypertension. Placed on Lopressor and lisinopril. Patient takes enalapril at home 6. History of asthma. Patient is asymptomatic. Continue to monitor for now. O2 via nasal cannula as needed. Nebulizer treatments as needed 7. DVT prophylaxis. Patient is on Integrilin drip. SCDs bilaterally Case was discussed in detail with the patient and medical office specialist regarding current diagnosis and treatment plan.
--- NOTE | 2017-09-17 16:16 | CP.PCM.CON ---
<Shailseh Horner - Last Filed: 09/17/17 17:29> History of Present Illness - History of Present Illness History of Present Illness: Shailesh Evens DO PGY-1, ICU consult note for Dr. Wilkins CC: chest pain This is a 42 year old Indian female who presented to the ED today for mid- sternal chest pain for the past 3 weeks. Pt described the pain as intermittent, 8/10 "squeezing" chest pain with palpitations that radiates to the armpits and both sides of the neck. Pt states that the pain has been self-limited, and did not have any exacerbating or alleviating factors. Pt was evaluated at [facility] for the chest pain at the beginning of August, where she states she had a cxr and ecg which was "normal" and she was discharged home. At this point, she attributed the pain to reflux and took OTC medications, but the pain continued to return. This morning, pt developed weakness and dizziness, which went away on its own. However, this afternoon the pain did not go away on its own, and was worse on exertion/walking, which prompted her to come to the ED. Pt 's EKG in the ED showed sinus tachycardia at [address] elevations in leads v2- v5. [facility] was called. She received ASA 325 mg PO, Plavix 600 mg PO and Morphine for pain. Pt was sent [facility], where she was found to have 100 % occlusion of the LAD. She received balloon angioplasty of the LAD with placement of KULWINDER x2 in the LAD. She is currently on an Integrilin gtt. Pt was seen and examined at bedside. Pt states that the chest pain is currently rated a 2-3/10; "achy, crampy" in nature, nonradiating. She reports she feels much better, other than mild fatigue. She endorses vaginal bleeding, and states that she is currently on her menstrual cycle. She denies fever, headache, dizziness, lightheadedness, shortness of breath, abdominal pain, n/v/d, pain on urination, hematemasis, melena, hematochezia. PMH: HTN, DM, Asthma, left sided evans's palsy, ectopic PSH: Tubal ligation (13 years ago) Meds: Enalapril (not sure of dose), Metformin (not sure of dose), Albuterol INH PRN (hasn't used her inhaler in a while) Allx: NKDA FHx: father hx of CVA at age 55; Mother hx of scleroderma SHx: Pt lives in [place] and is visiting family in [facility] and friends in [place]. Pt states that she goes to her neighborhood clinic, but was last there "a while ago." Denies smoking history, denies etoh use, denies illicit drug use. Review of Systems - Review of Systems All systems: reviewed and no additional remarkable complaints except (see HPI) Past Patient History - Infectious Disease Hx of Infectious Diseases: None - Past Social History Smoking Status: Never Smoked Alcohol: None Drugs: Denies - CARDIAC Hx Hypertension: Yes - PULMONARY Hx Asthma: Yes - NEUROLOGICAL Other/Comment: left sided evans's palsy - ENDOCRINE/METABOLIC Hx Diabetes Mellitus Type 2: Yes - GENITOURINARY/GYNECOLOGICAL LMP:: current - PSYCHIATRIC Hx Substance Use: No - SURGICAL HISTORY Hx Surgeries: Yes Hx Tubal Ligation: Yes Meds Allergies/Adverse Reactions: Allergies Allergy/AdvReac Type Severity Reaction Status Date / Time No Known Allergies Allergy Verified 09/17/17 16:29 - Medications Medications: Current Medications Acetaminophen (Tylenol 325mg Tab) 650 mg PO Q4H PRN PRN Reason: for pain Albuterol/Ipratropium (Duoneb 3 Mg/0.5 Mg (3 Ml) Ud) 3 ml IH Q4H PRN PRN Reason: Shortness of Breath Alprazolam (Xanax) 0.25 mg PO BID PRN PRN Reason: Anxiety Stop: 09/24/17 15:13 Aspirin (Ecotrin) 81 mg PO DAILY [facility] Atorvastatin Calcium (Lipitor) 80 mg PO DIN [facility] Clopidogrel Bisulfate (Plavix) 75 mg PO DAILY [facility] Docusate Sodium (Colace) 100 mg PO BID [facility] Eptifibatide (Integrilin) 75 mg in 100 mls @ 12.628 mls/hr IV .Q7H56M MANUEL; 2 MCG/KG/MIN PRN Reason: Protocol Stop: 09/18/17 08:00 Last Admin: 09/17/17 15:15 Dose: 12.628 mls/hr Sodium Chloride (Sodium Chloride 0.9%) 1,000 mls @ 50 mls/hr IV .Q20H MANUEL Stop: 09/18/17 07:00 Last Admin: 09/17/17 15:44 Dose: 50 mls/hr Insulin Human Regular (Humulin R Low) 0 units SC ACHS MANUEL PRN Reason: Protocol Insulin Human Regular (Humulin R Low) 0 units SC ACHS MANUEL PRN Reason: Protocol Lisinopril (Zestril) 2.5 mg PO DAILY [facility] Metoprolol Tartrate (Lopressor) 25 mg PO BID [facility] Ondansetron HCl (Zofran Inj) 4 mg IV ONCE PRN PRN Reason: Nausea/Vomiting Pantoprazole Sodium (Protonix Ec Tab) 40 mg PO 0600 [facility] Zolpidem Tartrate (Ambien) 5 mg PO HS PRN PRN Reason: Insomnia Physical Exam - Constitutional Appears: Non-toxic, No Acute Distress - Head Exam Head Exam: ATRAUMATIC, NORMAL INSPECTION, NORMOCEPHALIC - Eye Exam Eye Exam: EOMI, PERRL - ENT Exam ENT Exam: Mucous Membranes Moist Additional comments: (+) left lip commissure is depressed, without abnormalities of the eyebrow - Neck Exam Neck exam: Positive for: Normal Inspection - Respiratory Exam Respiratory Exam: Clear to Auscultation Bilateral, NORMAL BREATHING PATTERN. absent: Accessory Muscle Use, Respiratory Distress - Cardiovascular Exam Cardiovascular Exam: Tachycardia, +S1, +S2 - GI/Abdominal Exam GI & Abdominal Exam: Normal Bowel Sounds, Soft. absent: Tenderness - Exam Additional comments: (+) pink urine noted in basin after micturation; pt states that she is on her menstrual period - Extremities Exam Extremities exam: Positive for: normal capillary refill, normal inspection, pedal pulses present (2+ bilaterally). Negative for: calf tenderness, tenderness - Expanded Upper Extremities Exam Left General: normal inspection Shoulder exam: normal inspection Upper Arm exam: normal inspection Elbow exam: normal inspection Forearm Wrist exam: normal inspection (radial artery insertion site shows no hematoma or swelling; clean dry and intact; (+) TR band in place) - Back Exam Back exam: NORMAL INSPECTION - Neurological Exam Neurological exam: Alert, Oriented x3 - Psychiatric Exam Psychiatric exam: Normal Affect, Normal Mood - Skin Skin Exam: Normal Color Results - Vital Signs Recent Vital Signs: Last Vital Signs Temp 98.2 F 09/17/17 14:09 Pulse 100 H 09/17/17 14:09 Resp 18 09/17/17 14:09 BP 168/139 H 09/17/17 14:09 Pulse Ox 100 09/17/17 14:09 - Labs Result Diagrams: 09/17/17 13:25 09/17/17 13:25 Labs: Laboratory Results - last 24 hr 09/17/17 09/17/17 09/17/17 13:25 13:25 13:25 WBC 14.6 H RBC 5.42 Hgb 13.1 Hct 40.6 MCV 74.9 L MCH 24.2 L MCHC 32.3 RDW 16.2 H Plt Count 505 H MPV 10.1 Gran % 75.0 H Lymph % (Auto) 19.9 L [place] % (Auto) 4.5 Eos % (Auto) 0.3 L Baso % (Auto) 0.3 Gran # 10.95 H Lymph # (Auto) 2.9 [place] # (Auto) 0.7 H Eos # (Auto) 0.0 Baso # (Auto) 0.05 PT 11.8 INR 1.03 Sodium Potassium Chloride Carbon Dioxide Anion Gap BUN Creatinine Est GFR ( Amer) Est GFR (Non-Af Amer) POC Glucose (mg/dL) Random Glucose Calcium Total Bilirubin AST ALT Alkaline Phosphatase Lactate Dehydrogenase Total Creatine Kinase CK-MB (CK-2) CK-MB (CK-2) % Troponin I Total Protein Albumin Globulin Albumin/Globulin Ratio Blood Type O POSITIVE Antibody Screen Negative BBK History Checked No verified bt 09/17/17 09/17/17 13:25 16:14 WBC RBC Hgb Hct MCV MCH MCHC RDW Plt Count MPV Gran % Lymph % (Auto) [place] % (Auto) Eos % (Auto) Baso % (Auto) Gran # Lymph # (Auto) [place] # (Auto) Eos # (Auto) Baso # (Auto) PT INR Sodium 135 Potassium 4.0 Chloride 92 L Carbon Dioxide 25 Anion Gap 21 H BUN 12 Creatinine 0.8 Est GFR ( Amer) > 60 Est GFR (Non-Af Amer) > 60 POC Glucose (mg/dL) 235 H Random Glucose 317 H* Calcium 9.6 Total Bilirubin 0.8 AST 74 H ALT 32 Alkaline Phosphatase 156 H Lactate Dehydrogenase 611 Total Creatine Kinase 504 H CK-MB (CK-2) 25.0 H CK-MB (CK-2) % 5.0 H Troponin I 1.64 H* Total Protein 9.2 H Albumin 5.0 H Globulin 4.2 Albumin/Globulin Ratio 1.2 Blood Type Antibody Screen BBK History Checked Assessment & Plan - Assessment and Plan (Free Text) Assessment: This is a 42 year old Indian female with a PMHx of HTN, DM, seasonal asthma who complains of a 3 week history of midsternal chest pain which worsened today. In the ED, pt was noted to have ST elevations in leads v2-v5. [facility] was called. She received ASA 325 mg PO, Plavix 600 mg PO and Morphine for pain. Pt was [facility] to [facility], where she was found to have 100 % occlusion of the LAD. She received balloon angioplasty of the LAD with placement of KULWINDER x2 in the LAD. She is currently on an Integrilin gtt, and in ICU for neurological and cardiovascular monitoring s/p PCI. Plan: Neuro: - monitor for mental status changes - pt is AAOx3, with history of left sided evans's palsy Cardio: - s/p balloon angioplasty of the LAD with placement of KULWINDER x2 in the LAD - hemodynamically stable - beta-guanaco, asa, plavix, statin, ACEi - trend troponin, ckmb - cardiology is on board - f/u lipid panel - f/u echocardiogram - f/u lower extremity dopplar as per primary team Pulm: - duonebs prn - maintain spo2>90% - o2 prn - f/u v/q scan as per primary team Renal: - maintain euvolemia - hold pt's home metformin due to risk of WILL - continue NS IVF Endo: - HHD (CCD) after post-cath period - f/u HgbA1c - f/u tsh - ISS low - Accuchecks ACHS Heme: - f/u CBC in am ID: - no signs of infectous etiology PPX: Protonix for GI; Pt is on intigrillin gtt ASA and plavix Dispo: Under cardiovascular and neurological monitoring s/p PCI with KULWINDER x2 in LAD Case reviewed and discussed with attending physician, Dr. Wilkins <Martinez Wilkins - Last Filed: 09/17/17 17:40> Meds - Medications Medications: Current Medications Acetaminophen (Tylenol 325mg Tab) 650 mg PO Q4H PRN PRN Reason: for pain Albuterol/Ipratropium (Duoneb 3 Mg/0.5 Mg (3 Ml) Ud) 3 ml IH Q4H PRN PRN Reason: Shortness of Breath Alprazolam (Xanax) 0.25 mg PO BID PRN PRN Reason: Anxiety Stop: 09/24/17 15:13 Aspirin (Ecotrin) 81 mg PO DAILY [facility] Atorvastatin Calcium (Lipitor) 80 mg PO DIN [facility] Clopidogrel Bisulfate (Plavix) 75 mg PO DAILY [facility] Docusate Sodium (Colace) 100 mg PO BID [facility] Eptifibatide (Integrilin) 75 mg in 100 mls @ 12.628 mls/hr IV .Q7H56M MANUEL; 2 MCG/KG/MIN PRN Reason: Protocol Stop: 09/18/17 08:00 Last Admin: 09/17/17 15:15 Dose: 12.628 mls/hr Sodium Chloride (Sodium Chloride 0.9%) 1,000 mls @ 50 mls/hr IV .Q20H [facility] Stop: 09/18/17 07:00 Last Admin: 09/17/17 15:44 Dose: 50 mls/hr Insulin Human Regular (Humulin R Low) 0 units SC ACHS [facility] PRN Reason: Protocol Lisinopril (Zestril) 2.5 mg PO DAILY [facility] Metoprolol Tartrate (Lopressor) 25 mg PO BID [facility] Ondansetron HCl (Zofran Inj) 4 mg IV ONCE PRN PRN Reason: Nausea/Vomiting Last Admin: 09/17/17 17:16 Dose: 4 mg Pantoprazole Sodium (Protonix Ec Tab) 40 mg PO 0600 [facility] Zolpidem Tartrate (Ambien) 5 mg PO HS PRN PRN Reason: Insomnia Results - Vital Signs Recent Vital Signs: Last Vital Signs Temp 98.2 F 09/17/17 14:09 Pulse 100 H 09/17/17 14:09 Resp 18 09/17/17 14:09 BP 168/139 H 09/17/17 14:09 Pulse Ox 100 09/17/17 14:09 - Labs Result Diagrams: 09/17/17 13:25 09/17/17 13:25 Labs: Laboratory Results - last 24 hr 09/17/17 09/17/17 09/17/17 13:25 13:25 13:25 WBC 14.6 H RBC 5.42 Hgb 13.1 Hct 40.6 MCV 74.9 L MCH 24.2 L MCHC 32.3 RDW 16.2 H Plt Count 505 H MPV 10.1 Gran % 75.0 H Lymph % (Auto) 19.9 L [place] % (Auto) 4.5 Eos % (Auto) 0.3 L Baso % (Auto) 0.3 Gran # 10.95 H Lymph # (Auto) 2.9 [place] # (Auto) 0.7 H Eos # (Auto) 0.0 Baso # (Auto) 0.05 PT 11.8 INR 1.03 Sodium Potassium Chloride Carbon Dioxide Anion Gap BUN Creatinine Est GFR ( Amer) Est GFR (Non-Af Amer) POC Glucose (mg/dL) Random Glucose Calcium Total Bilirubin AST ALT Alkaline Phosphatase Lactate Dehydrogenase Total Creatine Kinase CK-MB (CK-2) CK-MB (CK-2) % Troponin I Total Protein Albumin Globulin Albumin/Globulin Ratio Blood Type O POSITIVE Antibody Screen Negative BBK History Checked No verified bt 09/17/17 09/17/17 13:25 16:14 WBC RBC Hgb Hct MCV MCH MCHC RDW Plt Count MPV Gran % Lymph % (Auto) [place] % (Auto) Eos % (Auto) Baso % (Auto) Gran # Lymph # (Auto) [place] # (Auto) Eos # (Auto) Baso # (Auto) PT INR Sodium 135 Potassium 4.0 Chloride 92 L Carbon Dioxide 25 Anion Gap 21 H BUN 12 Creatinine 0.8 Est GFR ( Amer) > 60 Est GFR (Non-Af Amer) > 60 POC Glucose (mg/dL) 235 H Random Glucose 317 H* Calcium 9.6 Total Bilirubin 0.8 AST 74 H ALT 32 Alkaline Phosphatase 156 H Lactate Dehydrogenase 611 Total Creatine Kinase 504 H CK-MB (CK-2) 25.0 H CK-MB (CK-2) % 5.0 H Troponin I 1.64 H* Total Protein 9.2 H Albumin 5.0 H Globulin 4.2 Albumin/Globulin Ratio 1.2 Blood Type Antibody Screen BBK History Checked Attending/Attestation - Attestation I have personally seen and examined this patient.: Yes I have fully participated in the care of the patient.: Yes I have reviewed all pertinent clinical information: Yes Notes (Text): 09/17/17 17:39 The patient was seen and examined at the bedside. Patient care was discussed with resident Medical records, lab studies were reviewed and management issues were discussed and formulated. Agree with above treatment plans as outlined in ' note with addition of the following: STEMI \\ DM2 \\ Elevated LFT -hemodynamic monitoring to maintain MAP>65 -f\\u ECho; f\\u serial CE and ECG -continue ACS medications (Asa, Plavix, Statin , BBlocker and NGOZI) -s\\p LAD stenting x2; cardiology team are following -o2 supplementation to maintain Spo2>90 Pao2>60; currently comfortable on NC -duoneb PRN -f\\u Bun\\Cr and U\\o; continue NS to prevent contrast nephropathy -PO diet (cardiac\\ Diabetic ) and aspiration precautions -ISS and BGM monitoring; f\\u HbA1C -f\\u serial LFT; consider RUQ US if continue to increase -f\\u LE duplex and V\\Q scan as per primary team -DVT \\ PUD prophylaxis
[2017-09-17] MEDS ORDERED: Insulin Reg-LOW-Coverage SC SCH (16:30)
[2017-09-17] MEDS: Insulin Reg-LOW-Coverage SC SCH ×2 (16:35→22:21)
[2017-09-17] MEDS ORDERED: Metoprolol 1 mg/ml Inj IVP ONE ×2 (17:15→17:16)
[2017-09-17 18:43] VITALS: BMI 28.3
[2017-09-17] MEDS ORDERED: Pneumococcal 23-Valent Vaccine IM ONE (18:43)
--- NOTE | 2017-09-17 18:43 | CARD ---
APPROVED REPORT Date of service: 09/17/2017 Procedure(s) performed: Left Heart Catheterization PTCA with Stenting of proximal and Mid LAD with KULWINDER PTCA with Balloon Angioplasty of distal LAD HISTORY The patient is a 42 year-old female with a history of : diabetes mellitus with oral treatment , hypertension , Admitted with Acute anterior wall [place] ( Code STEMI). INDICATION The indication(s) include : chest pain, STEMI (>0 to less than or equal to 6 hours). CASE TECHNIQUE The patient was brought emergently to the Cardiac Catheterization Laboratory in a fasting state and was prepped and draped in a sterile manner. The left wrist was infiltrated with 2% Lidocaine subcutaneous anesthesia. A 6FR GLIDESHEATH ACCESS KIT sheath was inserted into the left radial artery without difficulty. Coronary angiography was performed using coronary diagnostic catheters. The left coronary system was accessed and visualized with a Diagnostic ,6F JL4 CATH DXT 100 CM catheter. The right coronary system was accessed and visualized with a Diagnostic ,6F JR 4 CATH DXT 100 CM catheter. The left ventricle was accessed and visualized with a 6 Fr Performa Pigtail 145 catheter. Left ventricular/Aortic Valve gradient assessed on pullback. Left ventriculogram was performed in CREWS projection. Closure device was deployed with a Fr TR Band (Regular) without any complications. The patient tolerated the procedure well and there were no complications associated with the procedure. Vessel Analysis The patient's coronary anatomy is co-dominant. The left main coronary artery is a large size vessel without significant stenosis. The left main trifurcates to the left anterior descending, circumflex, and ramus. The left anterior descending artery is a large size vessel with diffuse calcification noted throughout this vessel and with significant stenosis. There is a 100% stenosis in the ostial segment. The circumflex artery is a medium size vessel with intimal irregularities and without significant stenosis. The first obtuse marginal branch is a small size vessel with intimal irregularities and without significant stenosis. The second obtuse marginal branch is a medium size vessel without significant stenosis. The left posterior descending artery is a medium size vessel with intimal irregularities and without significant stenosis. The ramus intermedius artery is a medium size vessel with intimal irregularities and without significant stenosis. The right coronary artery is a large size vessel without significant stenosis. The right posterior descending artery is a medium size vessel with intimal irregularities and without significant stenosis. The right posterolateral branch is a small size vessel with intimal irregularities and without significant stenosis. Left Ventricle The left ventricle is enlarged in size with moderately decreased contractility. Ischemic cardiomyopathy. The left ventricular ejection fraction is estimated to be 25-30%. The left ventricular end diastolic pressure is 30-35 mmHg. PCI Technique Lesion Anticoagulation was achieved with Heparin and Integrilin. Percutaneous coronary intervention was performed on the proximal left anterior descending artery segment. The lesion stenosis prior to intervention was 100% with NANCY 0 flow. A 6 Fr XB 3.5 Guide Catheter was used to engage the ostium. A Luge 182 Interventional Guidewire was used to cross the lesion. BALLOON DILATION A Balloon catheter 2.5 x 10 mm Sprinter RX was inserted and inflated up to 10.00atm for 13seconds. STENT DEPLOYMENT A drug-eluting stent STENT RESOLUTE YUNG 3.5 X 15 was inserted and inflated up to 12.00atm for 14seconds. Final angiography reveals 0 % stenosis with NANCY 3 flow. PCI Technique Lesion 2 Percutaneous Coronary Intervention was performed on the MID left anterior descending artery segment. The lesion stenosis prior to intervention was 90% with NANCY 1 flow. A 6 Fr XB 3.5 Guide Catheter was used to engage the ostium. A Luge 182 Interventional Guidewire was used to cross the lesion. BALLOON DILATION A Balloon catheter 2.5 x 10 mm Sprinter RX was inserted and inflated up to 10.00atm for 6seconds. STENT DEPLOYMENT A drug-eluting stent STENT RESOLUTE YUNG 3.0 X 38 was inserted and inflated up to 14atm for 20seconds. Final angiography reveals 0 % stenosis with NANCY 3 flow. PCI Technique Lesion 3 Percutaneous Coronary Intervention was performed on the distal left anterior descending artery segment. The lesion stenosis prior to intervention was 70-80% with NANCY 2 flow. A 6 Fr XB 3.5 Guide Catheter was used to engage the ostium. A Luge 182 Interventional Guidewire was used to cross the lesion. BALLOON DILATION A Balloon catheter 2.25 X 20 mm Sprinter RX was inserted and inflated up to 6-8atm for 2030seconds. muliple inflation mid to distal LAD Final angiography reveals 0 % stenosis with NANCY 3 flow. Conclusion Single Vessel CAD LAD Proximally totally occluded. LVEF-25-30%, EDP-30-35 mmof Hg. Severe Apical and wilbert-lateral HK. successful PTCA with KULWINDER of proximal and mid LAD,and POBA of Distal LAD Recommendations Daily ASA with Plavix for at least one year Aggressive Medical Therapy NGOZI, beta guanaco, diuretic andspironolactone as Bp is tolerated. CC; dr. Olmedo.
--- NOTE | 2017-09-17 19:10 | US ---
HISTORY: Leg pain and swelling. Evaluate for DVT PHYSICIAN(S): Celso Dominique MD. TECHNIQUE: Duplex sonography and color-flow Doppler with graded compression were used to evaluate the deep venous systems of both lower extremities. FINDINGS: The visualized deep venous systems of both lower extremities are sonographically normal and compressible. Normal wave forms and augmentation are seen. There is no sonographic evidence for deep venous thrombosis in the visualized segments of both lower extremities. IMPRESSION: No sonographic evidence for deep venous thrombosis in the visualized segments of both lower extremities.
[2017-09-17 19:49] LABS: BASO # 0.03 K/mm3 (0.0-2.0); BASO % 0.2 % (0.0-3.0); EOS % 0.1 % (1.5-5.0); GRAN # 12.62 (1.4-6.5); GRAN % 75.8 % (50.0-68.0); HEMOGLOBIN 12.1 g/dL (12.0-16.0); LYMPH # 2.7 (1.2-3.4); LYMPH % 16.3 % (22.0-35.0); MEAN CELL VOLUME 75.1 fl (80.0-105.0); MEAN CORPUSCULAR HEMOGLOBIN 24.3 pg (25.0-35.0); MEAN CORPUSCULAR HGB CONC 32.4 g/dl (31.0-37.0); MEAN PLATELET VOLUME 9.9 fl (7.0-11.0); MONO # 1.3 (0.1-0.6); MONO % 7.6 % (1.0-6.0); RBC 4.98 10^6/uL (3.5-6.1); RED CELL DISTRIBUTION WIDTH 16.2 % (11.5-14.5); WHITE BLOOD COUNT 16.7 10^3/ul (4.5-11.0)
[2017-09-17] MEDS ORDERED: Bacitracin Ointment 30 GM TUBE TOP ONE (20:40)
[2017-09-17 20:46] LABS: BLOOD UREA NITROGEN 12 mg/dL (7-21); CALCIUM 8.4 mg/dL (8.4-10.5); GFR AFRICAN-AMERICAN > 60; GFR NON-AFRICAN AMERICAN > 60
[2017-09-17 20:55] LABS: CK MB% 2.6 % (2.5-3.0)
[2017-09-17] MEDS ORDERED: Bacitracin 500 Units/gm Oint Foilpak UD TOP ONE (21:00)
--- NOTE | 2017-09-18 03:03 | CON ---
DATE: 09/17/2017 SERVICE: Cardiology. PHYSICIAN: Michael Serna MD. REASON FOR THE CONSULTATION: Acute code STEMI. BRIEF CLINICAL HISTORY: This is a 42-year-old female, resident of who was recently visiting family in [place] and today the patient came to the [place] to meet another friend since childhood where the patient developed severe chest pain, who was brought to the emergency room, found to be ST elevation in lead V2-V5 with reciprocal ST depression, so I was called for evaluation and EKG was texted to me. Looking at the EKG, code STEMI was activated and it drove to [place] from [place] for code STEMI evaluation and management. Admit the patient in slab grinder, severe chest pain at that time. ALLERGIES: DENIES ANY ALLERGY EXCEPT NIFEDIPINE . NO FOOD ALLERGY. CURRENT MEDICATIONS: The patient was taking enalapril and metformin. PAST MEDICAL HISTORY: Diabetes for 4 years, hypertension for 4 years. REVIEW OF SYSTEMS: As per HPI. PHYSICAL EXAMINATION: VITAL SIGNS: Height of the patient is 5 feet 4 inches, weight of the patient 165 pounds, body mass index 28.5 kg/m2. Heart rate 113, blood pressure 120/80. HEENT: PERRLA, intact. NECK: Supple. No carotid bruit. No thyromegaly. CHEST: Clear to auscultation. HEART: S1 and S2 regular. ABDOMEN: Soft. EXTREMITIES: Clubbing and cyanosis negative. LABORATORY DATA: Lab not available at this time. EKG shows ST elevation, V2-V4 with reciprocal ST depression, II, III, aVF. Consider acute anterior wall NV. IMPRESSION: A 42-year-old female with past medical history significant for diabetes, hypertension for 5 years, admitted with 1 week history of off and on chest pain, went to [facility] last week and was told everything was okay. Now, she had a chest pain here while in the [place] visiting friend. Brought here, found to be ST-elevation myocardial infarction. No absolute contraindication for heparin, we gave 5000 heparin bolus and told to give Brilinta 2 doses, aspirin and Integrilin and bring the patient to the catheterization lab. Risks, benefits, alternatives were explained to the patient and the patient's family friend. Agreeable to proceed for cardiac catheterization. Further recommendations after cardiac catheterization. Thank you, Dr. Arguello for providing us the opportunity in taking care of the patient, Wendi Castro. Michael Serna MD cc: ALFONSO ARGUELLO DO.
[2017-09-18] MEDS: Eptifibatide 0.75 mg/ml 75 MG/100 ML BOTTLE IV SCH (05:15)
[2017-09-18 06:29] LABS: BASO # 0.03 K/mm3 (0.0-2.0); BASO % 0.2 % (0.0-3.0); EOS % 0.2 % (1.5-5.0); GRAN # 9.03 (1.4-6.5); HEMOGLOBIN 11.4 g/dL (12.0-16.0); LYMPH # 3.4 (1.2-3.4); LYMPH % 24.2 % (22.0-35.0); MEAN CELL VOLUME 73.9 fl (80.0-105.0); MEAN CORPUSCULAR HEMOGLOBIN 24.8 pg (25.0-35.0); MEAN CORPUSCULAR HGB CONC 33.5 g/dl (31.0-37.0); MEAN PLATELET VOLUME 9.8 fl (7.0-11.0); MONO # 1.4 (0.1-0.6); MONO % 10.4 % (1.0-6.0); RBC 4.6 10^6/uL (3.5-6.1); WHITE BLOOD COUNT 13.9 10^3/ul (4.5-11.0)
[2017-09-18 07:01] LABS: LDL CHOLESTEROL 109 mg/dL (0-129)
[2017-09-18] MEDS: Pantoprazole 40 mg EC Tab PO SCH (07:01)
[2017-09-18 07:22] LABS: ALB/GLOB RATIO 1.2 (1.1-1.8); ALBUMIN 3.7 g/dL (3.0-4.8); ALT/SGPT 118 U/L (7-56); AST/SGOT 730 U/L (14-36); BLOOD UREA NITROGEN 12 mg/dL (7-21); CALCIUM 8.5 mg/dL (8.4-10.5); GFR AFRICAN-AMERICAN > 60; GFR NON-AFRICAN AMERICAN > 60; HDL CHOLESTEROL 40 mg/dL (29-60)
[2017-09-18] MEDS: Insulin Reg-LOW-Coverage SC SCH ×2 (07:55→10:58)
[2017-09-18 08:05] LABS: CK MB% 2.3 % (2.5-3.0)
--- NOTE | 2017-09-18 08:49 | PN ---
DATE: 09/18/2017 BELT FIXER NOTE SUBJECTIVE: The patient is resting in bed, awake and alert, comfortable on room air. No complaints of shortness of breath, cough, wheezing, chest congestion. She states that she has a slight discomfort in her chest in the substernal area. At this time, she is on IV nitroglycerin. The patient states that the chest discomfort is very, very minimal. No abdominal pain. No diarrhea, nauseousness or vomiting. PHYSICAL EXAMINATION: VITAL SIGNS: Note that her temperature is 98.2, her pulse is 108, respirations are 19 and BP is 154/84. SKIN: Warm and dry. HEENT: Head atraumatic, normocephalic. Eyes reactive to light. Ear, nose and throat seemed to be within normal limits. NECK: Supple. No JVD. No thyroid enlargement. No lymph nodes. HEART: Has regular rate and rhythm. Normal S1, S2, but mildly tachycardic. LUNGS: Reveal good breath sounds bilaterally. ABDOMEN: Soft, nontender. Normal bowel sounds. No organomegaly noted. GENITALIA: Deferred. RECTAL: Deferred. MUSCULOSKELETAL: No joint deformities. EXTREMITIES: Reveal no significant edema. NEUROLOGIC: She seemed to be grossly intact. DATA: As far as her laboratories are concerned, her white count is 13.9, hemoglobin is 11.4, hematocrit 34 with platelets of 413,000. Sodium is 132, potassium 3.8, chloride 94, CO2 of 31 with a BUN of 12, creatinine of 0.8 and glucose of 278. The patient's AST is 730 and ALT is 118, which are elevated. Her troponin and CK-MBs are pending. IMPRESSION: As far as my impression, this patient has presented with acute ST elevation myocardial infarction. Cardiac catheterization was performed and noted to require stents placed in the left anterior descending artery. The patient has a history of hypertension, diabetes, asthma and Burns palsy. PLAN: As far as our plan, we will continue with Ambien p.r.n. The patient is on Colace as well as bronchodilators, DuoNeb p.r.n. as well. She is getting Ecotrin and is on IV nitroglycerin as well. The patient is on Lipitor, Lopressor, Plavix, Protonix and Tylenol, of which Tylenol as a p.r.n. We will continue with the p.r.n. Xanax as well as Fidencio. We will continue to treat aggressively along with the other consultants and the primary care doctor. Fabian Nguyễn MD
[2017-09-18] MEDS ORDERED: Potassium Chloride 20 mEq ER Tab PO ONE ×2 (10:18→13:00)
[2017-09-18] MEDS: Magnesium Oxide 400 mg Tab UD PO SCH ×2 (11:08→17:39)
--- NOTE | 2017-09-18 12:14 | CARD ---
APPROVED REPORT Date of service: 09/18/2017 EKG Measurement Heart [id number] <Conclusion> Age and gender specific ECG analysis Sinus tachycardia Anteroseptal infarct, possibly acute T wave abnormality, consider latera Ishemia Abnormal ECG
--- NOTE | 2017-09-18 13:00 | CP.PCM.PN ---
<Speedy Yip - Last Filed: 09/18/17 12:56> Subjective - Date & Time of Evaluation Date of Evaluation: 09/18/17 Time of Evaluation: 12:56 - Subjective Subjective: Santos Yip PGY2 - IM Progress Note for Dr. Jansen Patient seen and evaluated this AM. NO acute events reported overnight. Patient indicates improved symptoms from admission. She denies shortness of breath, chest piain, abdominal pain, nausea, vomiting, fever, chills. Objective - Vital Signs/Intake and Output Vital Signs (last 24 hours): Temp Pulse Resp BP Pulse Ox 97.9 F 94 H 27 H 102/67 100 09/18/17 10:00 09/18/17 11:50 09/18/17 11:50 09/18/17 11:00 09/18/17 11:50 Intake and Output: 09/18/17 09/18/17 06:59 18:59 Intake Total 750 230 Output Total 1000 450 Balance -250 -220 - Medications Medications: Current Medications Acetaminophen (Tylenol 325mg Tab) 650 mg PO Q4H PRN PRN Reason: for pain Albuterol/Ipratropium (Duoneb 3 Mg/0.5 Mg (3 Ml) Ud) 3 ml IH Q4H PRN PRN Reason: Shortness of Breath Alprazolam (Xanax) 0.25 mg PO BID PRN PRN Reason: Anxiety Stop: 09/24/17 15:13 Last Admin: 09/17/17 22:26 Dose: 0.25 mg Aspirin (Ecotrin) 81 mg PO DAILY [facility] Last Admin: 09/18/17 09:25 Dose: 81 mg Atorvastatin Calcium (Lipitor) 80 mg PO DIN [facility] Last Admin: 09/17/17 18:11 Dose: 80 mg Clopidogrel Bisulfate (Plavix) 75 mg PO DAILY [facility] Last Admin: 09/18/17 09:25 Dose: 75 mg Docusate Sodium (Colace) 100 mg PO BID [facility] Last Admin: 09/18/17 10:41 Dose: Not Given Ibuprofen (Motrin Tab) 400 mg PO Q6H [facility] Stop: 09/19/17 00:46 Insulin Human Regular (Humulin R Low) 0 units SC ACHS [facility] PRN Reason: Protocol Last Admin: 09/18/17 10:58 Dose: 4 unit Lisinopril (Zestril) 2.5 mg PO DAILY [facility] Last Admin: 09/18/17 10:55 Dose: Not Given Magnesium Oxide (Mag-Ox) 400 mg PO BID [facility] Stop: 09/19/17 23:59 Last Admin: 09/18/17 11:08 Dose: 400 mg Metoprolol Tartrate (Lopressor) 25 mg PO TID [facility] Ondansetron HCl (Zofran Inj) 4 mg IV ONCE PRN PRN Reason: Nausea/Vomiting Last Admin: 09/17/17 17:16 Dose: 4 mg Pantoprazole Sodium (Protonix Ec Tab) 40 mg PO 0600 [facility] Last Admin: 09/18/17 07:01 Dose: 40 mg Potassium Chloride (K-Dur 20 Meq Er Tab) 20 meq PO ONCE ONE Stop: 09/18/17 13:01 Zolpidem Tartrate (Ambien) 5 mg PO HS PRN PRN Reason: Insomnia Last Admin: 09/17/17 22:28 Dose: 5 mg - Labs Labs: 09/18/17 06:10 09/18/17 06:10 PT 11.8 SECONDS (9.4-12.5) 09/17/17 13:25 INR 1.03 (0.93-1.08) 09/17/17 13:25 - Constitutional Appears: No Acute Distress - Head Exam Head Exam: ATRAUMATIC, NORMAL INSPECTION, NORMOCEPHALIC - Eye Exam Eye Exam: EOMI, PERRL - ENT Exam ENT Exam: Mucous Membranes Moist - Respiratory Exam Respiratory Exam: Clear to Ausculation Bilateral, NORMAL BREATHING PATTERN. absent: Rhonchi, Wheezes - Cardiovascular Exam Cardiovascular Exam: Tachycardia, REGULAR RHYTHM, +S1, +S2 - GI/Abdominal Exam GI & Abdominal Exam: Soft, Normal Bowel Sounds. absent: Tenderness - Extremities Exam Extremities Exam: Full ROM. absent: Calf Tenderness - Neurological Exam Neurological Exam: Alert, Awake, Oriented x3 Neuro motor strength exam: Left Upper Extremity: 5, Right Upper Extremity: 5, Left Lower Extremity: 5, Right Lower Extremity: 5 - Psychiatric Exam Psychiatric exam: Normal Affect, Normal Mood - Skin Skin Exam: Dry, Intact Assessment and Plan - Assessment and Plan (Free Text) Assessment: 42 year old female with a past medical history significant for NIDDM2, HTN, mild intermittent asthma and Burns's Palsy who presented for chest pain while visiting from [place]. While in the ED, patient was found to ST elevation in leads V2-5 on 12-lead EKG and a Code Heart was called. She was given loading doses of both ASA and Plavix as well as started on an Integrilin drip prior to being emergently transferred to the cardiac research laboratory technician. She was found to have complete occlusion of her pLAD, where two KULWINDER were placed, as well as stenosis of the dLAD, which was treated with balloon angioplasty. Patient observed in ICU s/p cath, currently being followed by cardiology. Plan: Acute IA w/ Complete LAD Occlusion s/p Angioplasty and two KULWINDER - EKG showed sinus tachycardia with ST elevation in leads V2-5 - Hemoglobin A1c - TSH nml, Lipid Panel: LDL 171, TG 165, HDL 40 - Integrilin gtt discontinued - Metoprolol 25mg TID, ASA 81, Plavix, Lipitor, and Lisinopril - Echocardiogram prelim report showing pericardial effusion/pericarditis - Cardiology consulted, all recommendations appreciated Pericardial Effusion - Pericarditis noted on preliminary echocardiogram - Iburprofen 400mg PO Q6H R/O Pulmonary Embolism -Continued angina in setting of tachycardia and recent travel - b/l LE US showing negative for DVT -V/Q Scan pending Transaminits - Etiology: Statin recently started v. hypoperfusion - Lipitor 80mg started last evening, noted hypotension episodes overnight - maintain MAP >65, IVF, monitor - Continuing statin secondary to significant stenosis History of NIDDM2 -SSI-Low and Accuchecks ACHS -A1c pending -Transporter Radiology consulted, all recommendations appreciated History of Asthma -Duonebs PRN GI/DVT ppx: - Protonix - SCDs Patient seen and case discussed with attending, Dr. Jansen. <Geetha Jansen R - Last Filed: 09/18/17 16:06> Objective - Vital Signs/Intake and Output Vital Signs (last 24 hours): Temp Pulse Resp BP Pulse Ox 97.9 F 101 H 27 H 110/72 100 09/18/17 10:00 09/18/17 14:00 09/18/17 11:50 09/18/17 13:35 09/18/17 11:50 Intake and Output: 09/18/17 09/18/17 06:59 18:59 Intake Total 750 230 Output Total 1000 450 Balance -250 -220 - Medications Medications: Current Medications Acetaminophen (Tylenol 325mg Tab) 650 mg PO Q4H PRN PRN Reason: for pain Albuterol/Ipratropium (Duoneb 3 Mg/0.5 Mg (3 Ml) Ud) 3 ml IH Q4H PRN PRN Reason: Shortness of Breath Alprazolam (Xanax) 0.25 mg PO BID PRN PRN Reason: Anxiety Stop: 09/24/17 15:13 Last Admin: 09/17/17 22:26 Dose: 0.25 mg Aspirin (Ecotrin) 81 mg PO DAILY [facility] Last Admin: 09/18/17 09:25 Dose: 81 mg Atorvastatin Calcium (Lipitor) 80 mg PO DIN [facility] Last Admin: 09/17/17 18:11 Dose: 80 mg Clopidogrel Bisulfate (Plavix) 75 mg PO DAILY [facility] Last Admin: 09/18/17 09:25 Dose: 75 mg Docusate Sodium (Colace) 100 mg PO BID [facility] Last Admin: 09/18/17 10:41 Dose: Not Given Ibuprofen (Motrin Tab) 400 mg PO Q6H [facility] Stop: 09/19/17 00:46 Last Admin: 09/18/17 13:34 Dose: 400 mg Insulin Human Regular (Humulin R Med) 0 units SC ACHS [facility] PRN Reason: Protocol Lisinopril (Zestril) 2.5 mg PO DAILY [facility] Last Admin: 09/18/17 10:55 Dose: Not Given Magnesium Oxide (Mag-Ox) 400 mg PO BID [facility] Stop: 09/19/17 23:59 Last Admin: 09/18/17 11:08 Dose: 400 mg Metoprolol Tartrate (Lopressor) 25 mg PO TID [facility] Last Admin: 09/18/17 13:35 Dose: 25 mg Ondansetron HCl (Zofran Inj) 4 mg IV ONCE PRN PRN Reason: Nausea/Vomiting Last Admin: 09/17/17 17:16 Dose: 4 mg Pantoprazole Sodium (Protonix Ec Tab) 40 mg PO 0600 [facility] Last Admin: 09/18/17 07:01 Dose: 40 mg Zolpidem Tartrate (Ambien) 5 mg PO HS PRN PRN Reason: Insomnia Last Admin: 09/17/17 22:28 Dose: 5 mg - Labs Labs: 09/18/17 06:10 09/18/17 06:10 PT 11.8 SECONDS (9.4-12.5) 09/17/17 13:25 INR 1.03 (0.93-1.08) 09/17/17 13:25 Attending/Attestation - Attestation I have personally seen and examined this patient.: Yes I have fully participated in the care of the patient.: Yes I have reviewed all pertinent clinical information, including history, physical exam and plan: Yes Notes (Text): Patient seen and examined by me at 10:30AM with resident. Case including HPI, physical exam, and physical assessment and plan discussed with resident. Agree with above with following additions/corrections. Patient states she is feeling much better today. Chest pain is resolved. However patient states she has some pain when she takes deep breaths. Pain is left-sided and does not radiate. She states it feels like "gas pains." No nausea , vomiting, or abdominal pain. No fevers or chills. No palpitations or shortness of breath. No neck pain or back pain. No dysuria. Physical exam: Gen: Awake and alert sitting up in chair in no acute distress HEENT: Normocephalic, atraumatic. Extraocular muscles intact, pupils equal reactive, no scleral icterus. Oropharynx is pink and moist, no pharyngeal erythema or exudate appreciated. Neck is supple. Cardiovascular: Normal rhythm, normal S1-S2. No murmurs, rubs, or gallops appreciated Pulmonary: Normal respiratory effort. No rhonchi, rales or wheezing appreciated. Gastrointestinal: Soft, nontender, nondistended, positive bowel sounds all 4 quadrants, no guarding Musculoskeletal: Normal range of motion all extremities, no calf tenderness, no CVA tenderness. Mild tenderness left wrist at cardiac cath site Central nervous system: AAO 3. Dermatologic: Skin warm and dry Assessment and plan: Patient is a 42-year-old female with past medical history significant for [id number] type 2 diabetes, hypertension, mild intermittent asthma, and Burns's palsy that presented to the emergency room with left-sided chest pain. Patient found to have an acute IA. 1. STEMI, status post cardiac cath which showed complete occlusion of pLAD, s/p KULWINDER x 2; stenosis of the dLAD, which was treated with balloon angioplasty. Status post Integrilin drip. Troponin elevated secondary to cardiac cath. Hemoglobin A1c pending. Pending official 2-D echo results. Continue aspirin, Plavix, Lipitor, Lopressor, and lisinopril. Cardiology following, recommendations appreciated. 2. Possible pericarditis. Patient started on ibuprofen by cardiology. Follow-up official 2-D echo results. Continue to monitor 3. Elevated LFTs. Elevated CPK. Likely secondary to hypoperfusion. Continue to monitor trend. Numbers are downtrending 4. Sinus tachycardia. Patient with recent travel. Pending VQ scan. Bilateral lower extremity venous Dopplers negative for DVT. Continue to monitor on telemetry 5. Leukocytosis. Likely reactive. Improving. Continue to monitor 6. Dmy-utliyqv-jczsszvoj type 2 diabetes with hyperglycemia. Continue insulin sliding scale. Pending hemoglobin A1c. continue to monitor accuchecks and adjust insulin. Patient counseled on diet and exercise 7. Essential hypertension. Continue Lopressor and lisinopril. Patient takes enalapril at home 8. History of asthma. Patient is asymptomatic. Continue to monitor for now. O2 via nasal cannula as needed. Nebulizer treatments as needed 9. DVT prophylaxis. SCDs bilaterally. Will start subq heparin tomorrow. Case was discussed in detail with the patient and bio medical technician regarding current diagnosis and treatment plan.
[2017-09-18] MEDS: Insulin Reg-MEDIUM-Coverage SC SCH ×2 (16:58→22:07)
--- NOTE | 2017-09-18 17:04 | NM ---
Date of service: 09/18/2017 COMPARISON: Portable chest 09/17/2017. TECHNIQUE: 30.9 mCi technetium 99-m DTPA aerosol 3.8 mCI technetium 99-m MAA administered intravenously. FINDINGS: VENTILATION COMPONENT: Normal. PERFUSION COMPONENT: Normal. IMPRESSION: Lowprobability ventilation perfusion scan for pulmonary embolism.
[2017-09-19] MEDS: Pantoprazole 40 mg EC Tab PO SCH (05:31)
[2017-09-19 06:57] LABS: BASO # 0.05 K/mm3 (0.0-2.0); BASO % 0.5 % (0.0-3.0); EOS # 0.1 (0.0-0.7); EOS % 1.2 % (1.5-5.0); GRAN # 4.34 (1.4-6.5); GRAN % 47.5 % (50.0-68.0); HEMOGLOBIN 10.2 g/dL (12.0-16.0); LYMPH # 3.7 (1.2-3.4); LYMPH % 40.5 % (22.0-35.0); MEAN CELL VOLUME 74.7 fl (80.0-105.0); MEAN CORPUSCULAR HEMOGLOBIN 23.4 pg (25.0-35.0); MEAN CORPUSCULAR HGB CONC 31.4 g/dl (31.0-37.0); MEAN PLATELET VOLUME 10.1 fl (7.0-11.0); MONO # 0.9 (0.1-0.6); MONO % 10.3 % (1.0-6.0); RBC 4.35 10^6/uL (3.5-6.1); RED CELL DISTRIBUTION WIDTH 16.2 % (11.5-14.5); WHITE BLOOD COUNT 9.1 10^3/ul (4.5-11.0)
[2017-09-19] MEDS: Insulin Reg-MEDIUM-Coverage SC SCH ×4 (07:38→22:23)
[2017-09-19 07:43] LABS: ALB/GLOB RATIO 1.2 (1.1-1.8); ALBUMIN 3.4 g/dL (3.0-4.8); ALT/SGPT 72 U/L (7-56); AST/SGOT 213 U/L (14-36); BLOOD UREA NITROGEN 18 mg/dL (7-21); CALCIUM 8.7 mg/dL (8.4-10.5); GFR AFRICAN-AMERICAN > 60; GFR NON-AFRICAN AMERICAN > 60
[2017-09-19 08:15] LABS: CK MB% 1.9 % (2.5-3.0); CK-MB 18.9 ng/mL (0.0-3.6)
--- NOTE | 2017-09-19 08:44 | CP.PCM.PN ---
Subjective - Date & Time of Evaluation Date of Evaluation: 09/19/17 Time of Evaluation: 06:15 - Subjective Subjective: Awake, denies chest pain, denies shortness of breath, muscle pain when taking deep breath Reason for consultation and follow up: Cardiac evaluation and follow up of code STEMI, anterior wall MA, post PTCA of LAD,history of hypertension. Seen and examined by me and Dr. Serna Objective - Vital Signs/Intake and Output Vital Signs (last 24 hours): Temp Pulse Resp BP Pulse Ox 97.8 F 86 20 85/52 L 99 09/19/17 06:00 09/19/17 06:00 09/19/17 06:00 09/19/17 06:00 09/19/17 06:00 Intake and Output: 09/19/17 09/19/17 06:59 18:59 Intake Total 120 Balance 120 - Medications Medications: Current Medications Acetaminophen (Tylenol 325mg Tab) 650 mg PO Q4H PRN PRN Reason: for pain Albuterol/Ipratropium (Duoneb 3 Mg/0.5 Mg (3 Ml) Ud) 3 ml IH Q4H PRN PRN Reason: Shortness of Breath Alprazolam (Xanax) 0.25 mg PO BID PRN PRN Reason: Anxiety Stop: 09/24/17 15:13 Last Admin: 09/17/17 22:26 Dose: 0.25 mg Aspirin (Ecotrin) 81 mg PO DAILY [facility] Last Admin: 09/18/17 09:25 Dose: 81 mg Atorvastatin Calcium (Lipitor) 80 mg PO DIN [facility] Last Admin: 09/17/17 18:11 Dose: 80 mg Clopidogrel Bisulfate (Plavix) 75 mg PO DAILY [facility] Last Admin: 09/18/17 09:25 Dose: 75 mg Docusate Sodium (Colace) 100 mg PO BID [facility] Last Admin: 09/18/17 17:51 Dose: Not Given Insulin Human Regular (Humulin R Med) [address] [facility] PRN Reason: Protocol Last Admin: 09/19/17 07:38 Dose: 5 units Lisinopril (Zestril) 2.5 mg PO DAILY [facility] Last Admin: 09/18/17 10:55 Dose: Not Given Magnesium Oxide (Mag-Ox) 400 mg PO BID [facility] Stop: 09/19/17 23:59 Last Admin: 09/18/17 17:39 Dose: 400 mg Metoprolol Tartrate (Lopressor) 25 mg PO TID [facility] Last Admin: 09/18/17 17:38 Dose: 25 mg Ondansetron HCl (Zofran Inj) 4 mg IV ONCE PRN PRN Reason: Nausea/Vomiting Last Admin: 09/17/17 17:16 Dose: 4 mg Pantoprazole Sodium (Protonix Ec Tab) 40 mg PO 0600 [facility] Last Admin: 09/19/17 05:31 Dose: 40 mg Zolpidem Tartrate (Ambien) 5 mg PO HS PRN PRN Reason: Insomnia Last Admin: 09/17/17 22:28 Dose: 5 mg - Labs Labs: 09/19/17 06:00 09/19/17 06:00 PT 11.8 SECONDS (9.4-12.5) 09/17/17 13:25 INR 1.03 (0.93-1.08) 09/17/17 13:25 - Constitutional Appears: No Acute Distress - Eye Exam Eye Exam: Normal appearance - ENT Exam ENT Exam: Mucous Membranes Moist - Respiratory Exam Respiratory Exam: Clear to Ausculation Bilateral, NORMAL BREATHING PATTERN - Cardiovascular Exam Cardiovascular Exam: REGULAR RHYTHM, +S1, +S2 Additional comments: chest muscle pain when taking deep breaths - GI/Abdominal Exam GI & Abdominal Exam: Soft, Normal Bowel Sounds - Extremities Exam Extremities Exam: Normal Capillary Refill - Neurological Exam Neurological Exam: Alert, Awake, Oriented x3 - Psychiatric Exam Psychiatric exam: Normal Affect - Skin Skin Exam: Dry, Normal Color, Warm Assessment and Plan - Assessment and Plan (Free Text) Assessment: A 42 year old female who came in to the ER due to chest pain. She is from [place] and visiting a friend in [place] when she developed severe chest pain with palpitattions. She has been experiencing intermittent mid sternal chest pain for the past 2 weeks. She went to an [facility] ER last week and was told everything was alright and was sent home. In [facility] ER she had an anterior wall MA, code STEMI activated. She underwent PTCA KULWINDER of the LAD. Complaining of muscle like pain when taking a deep breath, ECHO showed pericarditis. started Naprosyn. History of diabetes and hypertension. Plan: Echo showed Pericarditis Ibuprofen started Denies chest pain VQ scan normal, negative for pulmonary embolism Continue ASA 81 mg daily,Lipitor 80 mg daily, Plavix 75 mg daily,Lisinopril 2.5 mg daily,Lopressor 25 mg TID Continue current treatment Continue current medications Encouraged ambulation Will follow up Plan and treatment discussed with Dr. Serna
[2017-09-19] MEDS: Magnesium Oxide 400 mg Tab UD PO SCH ×2 (09:13→17:33)
[2017-09-19] MEDS ORDERED: Sodium Chloride 0.9% 250 ML IV STA (09:37)
--- NOTE | 2017-09-19 10:41 | CT ---
Date of service: 09/19/2017 PROCEDURE: CT HEAD WITHOUT CONTRAST. HISTORY: UE weakness COMPARISON: None available. TECHNIQUE: Axial computed tomography images were obtained through the head/brain without intravenous contrast. Radiation dose: Total exam DLP = 856.07 mGy-cm. This CT exam was performed using one or more of the following dose reduction techniques: Automated exposure control, adjustment of the mA and/or kV according to patient size, and/or use of iterative reconstruction technique. FINDINGS: HEMORRHAGE: No intracranial hemorrhage. BRAIN: Montano-white matter differentiation is preserved. There is no mass, mass effect or abnormal extra-axial fluid collection. There is no territorial infarction. The midline sagittal structures are normal. VENTRICLES: The ventricles are normal in size, shape and configuration. CALVARIUM: The skull base and calvarium are normal. PARANASAL SINUSES: Predominantly clear. MASTOID AIR CELLS: Predominantly clear. OTHER FINDINGS: None. IMPRESSION: No acute intracranial abnormality. If there is a persistent focal neurologic deficit and an ongoing clinical concern for acute infarction, an MRI of the brain without intravenous contrast would be a more sensitive modality for evaluation of hyperacute/acute ischemic infarction.
--- NOTE | 2017-09-19 12:22 | CARD ---
APPROVED REPORT Date of service: 09/19/2017 EKG Measurement Heart [id number] MD [id number] <Conclusion> Age and gender specific ECG analysis Sinus tachycardia Anterior infarct, possibly acute T wave abnormality, consider lateral ischemia recent Mi Abnormal ECG
--- NOTE | 2017-09-19 12:25 | CARD ---
APPROVED REPORT Date of service: 09/18/2017 EKG Measurement Heart [id number] CT [id number] <Conclusion> Age and gender specific ECG analysis Sinus tachycardia Anteroseptal infarct, possibly acute T wave abnormality, consider lateral ischemia Recent Mi Abnormal ECG
--- NOTE | 2017-09-19 12:30 | CARD ---
APPROVED REPORT Date of service: 09/18/2017 EXAM: Two-dimensional and M-mode echocardiogram with Doppler and color Doppler. INDICATION 2D DIMENSIONS IVSd1.4 (0.7-1.1cm)LVDd4.3 (3.9-5.9cm) PWd1.2 (0.7-1.1cm)LVDs3.9 (2.5-4.0cm) FS (%) 9.6 %LVEF (%)21.4 (>50%) M-Mode DIMENSIONS Left Atrium (MM)3.50 (2.5-4.0cm)Aortic Root3.30 (2.2-3.7cm) Aortic Cusp Exc.2.10 (1.5-2.0cm) Aortic Valve AoV Peak Xwwdwlda629.0cm/Bijan Peak GR.5mmHgAI P 1/2 Ipcj102vd Mitral Valve MV E Oimvfqzm99.9cm/sE/A ratio0.0 TDI Lateral E' Peak V9.36cm/sMedial E' Peak V8.97cm/sE/Lateral E'9.2 E/Medial E'9.6 Tricuspid Valve TR Peak Otmaiigw788vj/sRAP PYFUALVT13xhLbDF Peak Gr.28mmHg [id number] LEFT VENTRICLE The left ventricle is normal size. There is mild concentric left ventricular hypertrophy. The systolic function is severely impaired.EF-20-25% There is moderate to severe hypokinesis in the apical anterior wall. Transmitral Doppler flow pattern is Grade II-pseudonormal filling dynamics. No left ventricle thrombus noted on this study. There is no ventricular septal defect visualized. There is no left ventricular aneurysm. There is no mass noted in the left ventricle. RIGHT VENTRICLE The right ventricle is normal size. There is normal right ventricular wall thickness. The right ventricular systolic function is normal. ATRIA The left atrium size is normal. The right atrium size is normal. The interatrial septum is intact with no evidence for an atrial septal defect. AORTIC VALVE The aortic valve is thickened but opens well. The aortic valve is mildly sclerotic. There is trace to mild aortic regurgitation. There is no aortic valvular stenosis. There is no aortic valvular vegetation. MITRAL VALVE The mitral valve is thickened but opens well. Mitral regurgitation is mild ( multiple Jets). There is no mitral valve stenosis. There is no evidence of mitral valve prolapse. TRICUSPID VALVE The tricuspid valve is normal in structure. There is mild tricuspid regurgitation.RVSP-39 mm of Hg. There is no tricuspid valve stenosis. There is no tricuspid valve prolapse or vegetation. PULMONIC VALVE The pulmonary valve is normal in structure. There is trace pulmonic valvular regurgitation. There is no pulmonic valvular stenosis. GREAT VESSELS The aortic root is normal in size. The ascending aorta is normal in size. The pulmonary artery is normal. The IVC is normal in size and collapses >50% with inspiration. PERICARDIAL EFFUSION There is no pleural effusion. There is a trace to small pericardial effusion. <Conclusion> The left ventricle is normal size. There is mild concentric left ventricular hypertrophy. The systolic function is severely impaired.EF-20-25% There is moderate to severe hypokinesis in the apical anterior wall. There is trace to mild aortic regurgitation. Mitral regurgitation is mild ( multiple Jets). There is mild tricuspid regurgitation.RVSP-39 mm of Hg. There is trace pulmonic valvular regurgitation. The IVC is normal in size and collapses >50% with inspiration. There is a trace to small pericardial effusion.
--- NOTE | 2017-09-19 12:47 | CP.PCM.PN ---
<Speedy Apple - Last Filed: 09/19/17 12:37> Subjective - Date & Time of Evaluation Date of Evaluation: 09/19/17 Time of Evaluation: 12:37 - Subjective Subjective: Medicine Progress Note Pt seen and examined at bedside. No acute overnight events. Patient states that she has a weird/tingling sensation in her left hand, but no weakness. Patient denies CP, SOB, n/v/d, abdominal pain, fever, chills, JOHNSON, or dizziness. Objective - Vital Signs/Intake and Output Vital Signs (last 24 hours): Temp Pulse Resp BP Pulse Ox 97.8 F 102 H 20 92/57 L 99 09/19/17 06:00 09/19/17 10:00 09/19/17 06:00 09/19/17 09:10 09/19/17 06:00 Intake and Output: 09/19/17 09/19/17 06:59 18:59 Intake Total 120 Balance 120 - Medications Medications: Current Medications Alprazolam (Xanax) 0.25 mg PO BID PRN PRN Reason: Anxiety Stop: 09/24/17 15:13 Last Admin: 09/17/17 22:26 Dose: 0.25 mg Aspirin (Ecotrin) 81 mg PO DAILY [facility] Last Admin: 09/19/17 09:13 Dose: 81 mg Atorvastatin Calcium (Lipitor) 80 mg PO DIN [facility] Last Admin: 09/17/17 18:11 Dose: 80 mg Atorvastatin Calcium (Lipitor) 20 mg PO DIN [facility] Clopidogrel Bisulfate (Plavix) 75 mg PO DAILY [facility] Last Admin: 09/19/17 09:12 Dose: 75 mg Docusate Sodium (Colace) 100 mg PO BID [facility] Last Admin: 09/19/17 09:08 Dose: Not Given Ibuprofen (Motrin Tab) 600 mg PO Q6H [facility] Last Admin: 09/19/17 10:43 Dose: 600 mg Insulin Detemir (Levemir) 8 unit SC HS [facility] Insulin Human Regular (Humulin R Med) 0 units SC ACHS [facility] PRN Reason: Protocol Last Admin: 09/19/17 12:18 Dose: 5 units Lisinopril (Zestril) 2.5 mg PO DAILY [facility] Last Admin: 09/19/17 09:10 Dose: Not Given Magnesium Oxide (Mag-Ox) 400 mg PO BID [facility] Stop: 09/19/17 23:59 Last Admin: 09/19/17 09:13 Dose: 400 mg Metoprolol Tartrate (Lopressor) 12.5 mg PO TID [facility] Ondansetron HCl (Zofran Inj) 4 mg IV ONCE PRN PRN Reason: Nausea/Vomiting Last Admin: 09/17/17 17:16 Dose: 4 mg Pantoprazole Sodium (Protonix Ec Tab) 40 mg PO 0600 [facility] Last Admin: 09/19/17 05:31 Dose: 40 mg Zolpidem Tartrate (Ambien) 5 mg PO HS PRN PRN Reason: Insomnia Last Admin: 09/17/17 22:28 Dose: 5 mg - Labs Labs: 09/19/17 06:00 09/19/17 06:00 PT 11.8 SECONDS (9.4-12.5) 09/17/17 13:25 INR 1.03 (0.93-1.08) 09/17/17 13:25 - Constitutional Appears: No Acute Distress - Head Exam Head Exam: NORMAL INSPECTION - Eye Exam Eye Exam: Normal appearance - ENT Exam ENT Exam: Mucous Membranes Moist - Neck Exam Neck Exam: Normal Inspection - Respiratory Exam Respiratory Exam: Clear to Ausculation Bilateral. absent: Rales, Rhonchi, Wheezes - Cardiovascular Exam Cardiovascular Exam: RRR, +S1, +S2. absent: Clicks, Rubs, Murmur - GI/Abdominal Exam GI & Abdominal Exam: Soft, Normal Bowel Sounds. absent: Tenderness - Extremities Exam Extremities Exam: Full ROM, Normal Capillary Refill, Normal Inspection. absent : Joint Swelling, Pedal Edema - Back Exam Back Exam: NORMAL INSPECTION - Neurological Exam Neurological Exam: Alert, Awake, CN II-XII Intact, Oriented x3 Neuro motor strength exam: Left Upper Extremity: 5, Right Upper Extremity: 5, Left Lower Extremity: 5, Right Lower Extremity: 5 Additional comments: left sided facial droop - Psychiatric Exam Psychiatric exam: Normal Affect, Normal Mood - Skin Skin Exam: Dry, Intact, Normal Color, Warm Assessment and Plan - Assessment and Plan (Free Text) Assessment: 42 year old female with a past medical history significant for NIDDM2, HTN, mild intermittent asthma and Burns's Palsy who presented for chest pain while visiting from [place]. While in the ED, patient was found to ST elevation in leads V2-5 on 12-lead EKG and a Code Heart was called. She was given loading doses of both ASA and Plavix as well as started on an Integrilin drip prior to being emergently transferred to the cardiac oven laborer. She was found to have complete occlusion of her pLAD, where two KULWINDER were placed, as well as stenosis of the dLAD, which was treated with balloon angioplasty. Plan: Acute DC w/ Complete LAD Occlusion s/p Angioplasty and two KULWINDER - EKG showed sinus tachycardia with ST elevation in leads V2-5 - Hemoglobin A1c pending - TSH nml, Lipid Panel: LDL 171, TG 165, HDL 40 - Metoprolol 25mg TID, ASA 81, Plavix, Lipitor, and Lisinopril - Echocardiogram showed LVEF 21.4%, mod to severe hypokinesis in the apical anterior wall, mild MR/TR/GA/AR, small pericardial effusion - MUGA scan ordered - Cardiology consulted, all recommendations appreciated Pericardial Effusion - Echocardiogram showed LVEF 21.4%, mod to severe hypokinesis in the apical anterior wall, mild MR/TR/GA/AR, small pericardial effusion - Iburprofen 400mg PO Q6H Pulmonary Embolism ruled out - b/l LE US showing negative for DVT - V/Q Scan shows low probability for PE LUE Numbness - CT head showed no acute intracranial abnormalties - Cont to monitor Transaminits - Improving - Etiology: Statin recently started v. hypoperfusion - Lipitor reduced to 20 mg PO daily - maintain MAP >65, IVF, monitor - Continuing statin secondary to significant stenosis History of NIDDM2 - SSI-Low and Accuchecks ACHS - A1c pending - Photographer'S Model consulted, all recommendations appreciated History of Asthma - Duonebs PRN GI/DVT ppx: - Protonix - SCDs Patient seen and case discussed with attending, Dr. Jansen. Nnamdi Apple, PGY2 <Geetha Jansen R - Last Filed: 09/19/17 15:08> Objective - Vital Signs/Intake and Output Vital Signs (last 24 hours): Temp Pulse Resp BP Pulse Ox 98.8 F 103 H 18 102/75 99 09/19/17 12:00 09/19/17 14:00 09/19/17 12:00 09/19/17 13:27 09/19/17 06:00 Intake and Output: 09/19/17 09/19/17 06:59 18:59 Intake Total 120 Balance 120 - Medications Medications: Current Medications Alprazolam (Xanax) 0.25 mg PO BID PRN PRN Reason: Anxiety Stop: 09/24/17 15:13 Last Admin: 09/17/17 22:26 Dose: 0.25 mg Aspirin (Ecotrin) 81 mg PO DAILY [facility] Last Admin: 09/19/17 09:13 Dose: 81 mg Atorvastatin Calcium (Lipitor) 80 mg PO DIN [facility] Last Admin: 09/17/17 18:11 Dose: 80 mg Atorvastatin Calcium (Lipitor) 20 mg PO DIN [facility] Clopidogrel Bisulfate (Plavix) 75 mg PO DAILY [facility] Last Admin: 09/19/17 09:12 Dose: 75 mg Docusate Sodium (Colace) 100 mg PO BID [facility] Last Admin: 09/19/17 09:08 Dose: Not Given Ibuprofen (Motrin Tab) 600 mg PO Q6H [facility] Last Admin: 09/19/17 10:43 Dose: 600 mg Insulin Detemir (Levemir) 8 unit SC HS [facility] Insulin Human Regular (Humulin R Med) 0 units SC [facility] PRN Reason: Protocol Last Admin: 09/19/17 12:18 Dose: 5 units Lisinopril (Zestril) 2.5 mg PO DAILY [facility] Last Admin: 09/19/17 09:10 Dose: Not Given Magnesium Oxide (Mag-Ox) 400 mg PO BID [facility] Stop: 09/19/17 23:59 Last Admin: 09/19/17 09:13 Dose: 400 mg Metoprolol Tartrate (Lopressor) 12.5 mg PO TID [facility] Last Admin: 09/19/17 13:27 Dose: 12.5 mg Ondansetron HCl (Zofran Inj) 4 mg IV ONCE PRN PRN Reason: Nausea/Vomiting Last Admin: 09/17/17 17:16 Dose: 4 mg Pantoprazole Sodium (Protonix Ec Tab) 40 mg PO 0600 [facility] Last Admin: 09/19/17 05:31 Dose: 40 mg Zolpidem Tartrate (Ambien) 5 mg PO HS PRN PRN Reason: Insomnia Last Admin: 09/17/17 22:28 Dose: 5 mg - Labs Labs: 09/19/17 06:00 09/19/17 06:00 PT 11.8 SECONDS (9.4-12.5) 09/17/17 13:25 INR 1.03 (0.93-1.08) 09/17/17 13:25 Attending/Attestation - Attestation I have personally seen and examined this patient.: Yes I have fully participated in the care of the patient.: Yes I have reviewed all pertinent clinical information, including history, physical exam and plan: Yes Notes (Text): Patient seen and examined by me at 09:15AM with resident. Case including HPI, physical exam, and physical assessment and plan discussed with resident. Agree with above with following additions/corrections. Patient state she feels good. States she had a brief moment while eating breakfast where her arms seemed to feel "tired and weak." That has resolved. Patient overall feels a little weak. Left sided chest pain resolved. No pain with breathing. No nausea, vomiting, or abdominal pain. No fevers or chills. No palpitations or shortness of breath. No neck pain or back pain. No dysuria. Physical exam: Gen: Awake and alert sitting up in bed in no acute distress HEENT: Normocephalic, atraumatic. Extraocular muscles intact, pupils equal reactive, no scleral icterus. Oropharynx is pink and moist, no pharyngeal erythema or exudate appreciated. Neck is supple. Cardiovascular: Normal rhythm, normal S1-S2. No murmurs, rubs, or gallops appreciated Pulmonary: Normal respiratory effort. No rhonchi, rales or wheezing appreciated. Gastrointestinal: Soft, nontender, nondistended, positive bowel sounds all 4 quadrants, no guarding Musculoskeletal: Normal range of motion all extremities, no calf tenderness, no CVA tenderness. Mild tenderness left wrist at cardiac cath site Central nervous system: AAO 3. 5/5 muscle strength all extremities. Dermatologic: Skin warm and dry, positive ecchymosis left forearm from cardiac cath Assessment and plan: Patient is a 42-year-old female with past medical history significant for [id number] type 2 diabetes, hypertension, mild intermittent asthma, and Burns's palsy that presented to the emergency room with left-sided chest pain. Patient found to have an acute DC. 1. STEMI, status post cardiac cath which showed complete occlusion of pLAD, s/p KULWINDER x 2; stenosis of the dLAD, which was treated with balloon angioplasty. Status post Integrilin drip. Troponin elevated secondary to cardiac cath, downtrending. Hemoglobin A1c pending. 2d echo per outpatient surgery rn shows left ventricular is normal size, mild concentric left ventricular hypertrophy, systolic function severely impaired, EF 20-25%, moderate to severe hypokinesis in the apical anterior wall, trace to small pericardial effusion (please see official read for full details). Continue aspirin, Plavix, Lipitor, Lopressor, and lisinopril. Cardiology following, recommendations appreciated. 2. Severely reduced EF on echo. Likely secondary to Acute DC. Continue with lopressor and lisinopril per Cardiology. 3. Pericarditis. Continue ibuprofen per cardiology. Continue to monitor 4. Elevated LFTs. Elevated CPK. Likely secondary to Acute DC. Downtredning. Continue to monitor trend. 5. Sinus tachycardia. Patient with recent travel. VQ scan low probability for PE. Bilateral lower extremity venous Dopplers negative for DVT. Continue to monitor on telemetry 6. Leukocytosis. Likely reactive. Resolved. Continue to monitor 7. Anemia. No signs of acute bleeding. Continue to monitor for now. 8. [id number]-uingaavil type 2 diabetes with hyperglycemia. Continue insulin sliding scale. Pending hemoglobin A1c. Started on Levemir. Continue to monitor accuchecks and adjust insulin. Patient counseled on diet and exercise 9. Essential hypertension. Continue Lopressor and lisinopril. Patient takes enalapril at home 10. History of asthma. Patient is asymptomatic. Continue to monitor for now. O2 via nasal cannula as needed. Nebulizer treatments as needed 11. DVT prophylaxis. SCDs bilaterally with early ambulation. Case was discussed in detail with the patient, cardiology Dr. Serna, and medical scientific officer regarding current diagnosis and treatment plan.
[2017-09-19] MEDS ORDERED: Insulin Detemir 100 units/ml Vial (Levemir) SC SCH ×2 (22:00)
[2017-09-20 02:14] VITALS: RESP 20
[2017-09-20] MEDS: Pantoprazole 40 mg EC Tab PO SCH (05:17)
[2017-09-20 06:43] LABS: BASO # 0.05 K/mm3 (0.0-2.0); BASO % 0.5 % (0.0-3.0); EOS # 0.3 (0.0-0.7); EOS % 2.5 % (1.5-5.0); GRAN # 4.75 (1.4-6.5); GRAN % 48.5 % (50.0-68.0); HEMOGLOBIN 9.9 g/dL (12.0-16.0); LYMPH % 40.7 % (22.0-35.0); MEAN CELL VOLUME 75.5 fl (80.0-105.0); MEAN CORPUSCULAR HEMOGLOBIN 23.6 pg (25.0-35.0); MEAN CORPUSCULAR HGB CONC 31.2 g/dl (31.0-37.0); MEAN PLATELET VOLUME 9.9 fl (7.0-11.0); MONO # 0.8 (0.1-0.6); MONO % 7.8 % (1.0-6.0); RBC 4.2 10^6/uL (3.5-6.1); RED CELL DISTRIBUTION WIDTH 16.3 % (11.5-14.5); WHITE BLOOD COUNT 9.8 10^3/ul (4.5-11.0)
[2017-09-20 07:15] LABS: ALB/GLOB RATIO 1.1 (1.1-1.8); ALBUMIN 3.4 g/dL (3.0-4.8); ALT/SGPT 55 U/L (7-56); AST/SGOT 108 U/L (14-36); BLOOD UREA NITROGEN 18 mg/dL (7-21); CALCIUM 8.6 mg/dL (8.4-10.5); GFR AFRICAN-AMERICAN > 60; GFR NON-AFRICAN AMERICAN > 60
[2017-09-20 07:24] LABS: CK MB% 1.2 % (2.5-3.0); CK-MB 5.8 ng/mL (0.0-3.6)
--- NOTE | 2017-09-20 07:33 | CP.PCM.PN ---
Subjective - Date & Time of Evaluation Date of Evaluation: 09/20/17 Time of Evaluation: 06:35 - Subjective Subjective: Awake, denies chest pain, denies shortness of breath, muscle pain when taking deep breath Reason for consultation and follow up: Cardiac evaluation and follow up of code STEMI, anterior wall MA, post PTCA of LAD,history of hypertension. Seen and examined by me and Dr. Serna Objective - Vital Signs/Intake and Output Vital Signs (last 24 hours): Temp Pulse Resp BP Pulse Ox 98.1 F 84 20 101/70 97 09/20/17 06:00 09/20/17 06:00 09/20/17 06:00 09/20/17 06:00 09/20/17 06:00 Intake and Output: 09/20/17 09/20/17 06:59 18:59 Intake Total 360 Balance 360 - Medications Medications: Current Medications Alprazolam (Xanax) 0.25 mg PO BID PRN PRN Reason: Anxiety Stop: 09/24/17 15:13 Last Admin: 09/17/17 22:26 Dose: 0.25 mg Aspirin (Ecotrin) 81 mg PO DAILY [facility] Last Admin: 09/19/17 09:13 Dose: 81 mg Atorvastatin Calcium (Lipitor) 80 mg PO DIN [facility] Last Admin: 09/17/17 18:11 Dose: 80 mg Atorvastatin Calcium (Lipitor) 20 mg PO DIN [facility] Clopidogrel Bisulfate (Plavix) 75 mg PO DAILY [facility] Last Admin: 09/19/17 09:12 Dose: 75 mg Docusate Sodium (Colace) 100 mg PO BID [facility] Last Admin: 09/19/17 17:28 Dose: Not Given Ibuprofen (Motrin Tab) 600 mg PO Q6H [facility] Last Admin: 09/20/17 03:36 Dose: 600 mg Insulin Detemir (Levemir) 8 unit SC HS [facility] Last Admin: 09/19/17 22:22 Dose: 8 unit Insulin Human Regular (Humulin R Med) [address] [facility] PRN Reason: Protocol Last Admin: 09/19/17 22:23 Dose: 3 units Lisinopril (Zestril) 2.5 mg PO DAILY [facility] Last Admin: 09/19/17 09:10 Dose: Not Given Metoprolol Tartrate (Lopressor) 12.5 mg PO TID [facility] Last Admin: 09/19/17 17:29 Dose: 12.5 mg Ondansetron HCl (Zofran Inj) 4 mg IV ONCE PRN PRN Reason: Nausea/Vomiting Last Admin: 09/17/17 17:16 Dose: 4 mg Pantoprazole Sodium (Protonix Ec Tab) 40 mg PO 0600 [facility] Last Admin: 09/20/17 05:17 Dose: 40 mg Zolpidem Tartrate (Ambien) 5 mg PO HS PRN PRN Reason: Insomnia Last Admin: 09/17/17 22:28 Dose: 5 mg - Labs Labs: 09/20/17 06:00 09/20/17 06:00 PT 11.8 SECONDS (9.4-12.5) 09/17/17 13:25 INR 1.03 (0.93-1.08) 09/17/17 13:25 - Constitutional Appears: No Acute Distress - Eye Exam Eye Exam: Normal appearance - ENT Exam ENT Exam: Mucous Membranes Moist - Respiratory Exam Respiratory Exam: Clear to Ausculation Bilateral, NORMAL BREATHING PATTERN - Cardiovascular Exam Cardiovascular Exam: REGULAR RHYTHM, +S1, +S2 - GI/Abdominal Exam GI & Abdominal Exam: Soft, Normal Bowel Sounds - Extremities Exam Extremities Exam: Normal Capillary Refill, Normal Inspection - Neurological Exam Neurological Exam: Alert, Awake, Oriented x3 - Psychiatric Exam Psychiatric exam: Normal Affect - Skin Skin Exam: Dry, Intact, Warm Assessment and Plan - Assessment and Plan (Free Text) Assessment: A 42 year old female who came in to the ER due to chest pain. She is from [place] and visiting a friend in [place] when she developed severe chest pain with palpitattions. She has been experiencing intermittent mid sternal chest pain for the past 2 weeks. She went to an [facility] ER last week and was told everything was alright and was sent home. In [facility] ER she had an anterior wall MA, code STEMI activated. She underwent PTCA KULWINDER of the LAD. Complaining of muscle like pain when taking a deep breath, ECHO showed pericarditis. started Naprosyn. History of diabetes and hypertension.Echo showed Pericarditis,Ibuprofen started ,VQ scan normal, negative for pulmonary embolism. Plan: For MUGA scan today Episode of left arm tingling, no weakness yesterday with low blood pressure Will hold Lisinopril for now IV fluids given CT of head- negative for bleeding Echo showed Pericarditis Ibuprofen started Denies chest pain VQ scan normal, negative for pulmonary embolism Continue ASA 81 mg daily,Lipitor 80 mg daily, Plavix 75 mg daily,,Lopressor 25 mg TID Continue current treatment Continue current medications Encouraged ambulation Will follow up Plan and treatment discussed with Dr. Serna
[2017-09-20] MEDS: Insulin Reg-MEDIUM-Coverage SC SCH ×3 (07:54→16:30)
[2017-09-20 08:33] VITALS: O2SAT 98
--- NOTE | 2017-09-20 09:04 | PN ---
DATE: 09/18/2017 REASON FOR CONSULTATION AND FOLLOWUP: Acute code STEMI, anterior wall [place], status post primary angioplasty. SUBJECTIVE: The patient denies any chest pain, shortness of breath, or any palpitation. Feels a lot better. PHYSICAL EXAMINATION: GENERAL: Not in apparent distress, lying in the bed, getting echo. VITAL SIGNS: Temperature afebrile, heart rate 113, blood pressure 119/54. HEENT: PERRLA. Extraocular muscles intact. NECK: Supple. No carotid bruit or thyromegaly. CHEST: Clear to auscultation. HEART: S1 and S2 regular. ABDOMEN: Soft. EXTREMITIES: Clubbing and cyanosis negative. LABORATORY DATA: EKG shows normal sinus, resolution of ST with T-inversions in anterior leads. Bedside echo has been done, that shows decreased LV function. IMPRESSION: A 42-year-old female with a past medical history of diabetes, hypertension, admitted yesterday with acute code ST elevation myocardial infarction, anterior wall myocardial infarction, very proximal left anterior descending totally occluded, status post primary angioplasty with two drug-eluting stents, proximal left anterior descending and distal left anterior descending angioplasty. Blood workup shows WBC 13.9, hemoglobin 11.4, hematocrit 34, platelet count 413. Chemistry shows sodium 130, potassium 3.8, chloride 94, carbon dioxide 31, anion gap of 11, BUN 12, creatinine 0.8, magnesium 1.8, phosphorus 3. Troponin 212. Total CPK 5623, maximum CPK of yesterday, peaked at . Troponin peaked to 329. Today, troponin is trending down to 212. RECOMMENDATION: Continue metoprolol, increase to 3 times because of the tachycardia. Continue atorvastatin. Supplement magnesium. Supplement potassium. In view of significantly elevated AST and ALT, we will hold statin today and restart when they trend down. Continue Plavix. Continue NGOZI inhibitors. We will check electrolytes tomorrow. We will check LFTs tomorrow. Once LFTs improve, we will restart statin. For now, we will put on hold and increase metoprolol to 3 times a day. Out of bed to chair. We will give K-Dur 20 at 1:00 p.m. and we will start mag ox t.i.d. for 4 doses. Thank you, Dr. Jansen, for providing us the opportunity in taking care of the patient, Wendi Castro. Michael Serna MD
[2017-09-20 11:54] VITALS: TEMP 98.9
[2017-09-20 15:50] VITALS: BP 122/94; PULSE 100
--- NOTE | 2017-09-20 17:32 | CP.PCM.DIS ---
<Zaid Patton - Last Filed: 09/20/17 19:41> Provider - Provider Date of Admission: 09/19/17 02:23 Attending physician: Sally Mccarthy MD Primary care physician: NO PRIMARY CARE PROVIDER Time Spent in preparation of Discharge (in minutes): 45 Diagnosis - Discharge Diagnosis (1) Acute ST elevation myocardial infarction (STEMI) Status: Resolved Priority: Medium (2) Pericardial effusion Status: Resolved Priority: Medium (3) Transaminitis Status: Resolved Priority: Medium (4) Diabetes mellitus Status: Chronic Priority: Medium (5) Asthma Status: Chronic Priority: Medium (6) Burns palsy Status: Chronic Priority: Medium Hospital Course - Lab Results Lab Results: Most Recent Lab Values WBC 9.8 10^3/ul (4.5-11.0) 09/20/17 06:00 RBC 4.20 10^6/uL (3.5-6.1) 09/20/17 06:00 Hgb 9.9 g/dL (12.0-16.0) L 09/20/17 06:00 Hct 31.7 % (36.0-48.0) L 09/20/17 06:00 MCV 75.5 fl (80.0-105.0) L 09/20/17 06:00 MCH 23.6 pg (25.0-35.0) L 09/20/17 06:00 MCHC 31.2 g/dl (31.0-37.0) 09/20/17 06:00 RDW 16.3 % (11.5-14.5) H 09/20/17 06:00 Plt Count 395 10^3/uL (120.0-450.0) 09/20/17 06:00 MPV 9.9 fl (7.0-11.0) 09/20/17 06:00 Gran % 48.5 % (50.0-68.0) L 09/20/17 06:00 Lymph % (Auto) 40.7 % (22.0-35.0) H 09/20/17 06:00 [place] % (Auto) 7.8 % (1.0-6.0) H 09/20/17 06:00 Eos % (Auto) 2.5 % (1.5-5.0) 07/23/18 06:00 Baso % (Auto) 0.5 % (0.0-3.0) 09/20/17 06:00 Gran # 4.75 (1.4-6.5) 09/20/17 06:00 Lymph # (Auto) 4.0 (1.2-3.4) H 09/20/17 06:00 [place] # (Auto) 0.8 (0.1-0.6) H 09/20/17 06:00 Eos # (Auto) 0.3 (0.0-0.7) 09/20/17 06:00 Baso # (Auto) 0.05 K/mm3 (0.0-2.0) 09/20/17 06:00 PT 11.8 SECONDS (9.4-12.5) 09/17/17 13:25 INR 1.03 (0.93-1.08) 09/17/17 13:25 Sodium 139 mmol/L (132-148) 09/20/17 06:00 Potassium 4.4 mmol/L (3.6-5.0) 09/20/17 06:00 Chloride 101 mmol/L (98-107) 09/20/17 06:00 Carbon Dioxide 30 mmol/L (21-33) 09/20/17 06:00 Anion Gap 12 (10-20) 09/20/17 06:00 BUN 18 mg/dL (7-21) 09/20/17 06:00 Creatinine 0.8 mg/dl (0.7-1.2) 09/20/17 06:00 Est GFR ( Amer) > 60 09/20/17 06:00 Est GFR (Non-Af Amer) > 60 09/20/17 06:00 POC Glucose (mg/dL) 148 mg/dL (65-110) H 09/20/17 16:00 Random Glucose 216 mg/dL (70-110) H 09/20/17 06:00 Hemoglobin A1c 10.5 % (4.2-6.5) H 09/18/17 06:10 Calcium 8.6 mg/dL (8.4-10.5) 09/20/17 06:00 Phosphorus 3.8 mg/dL (2.5-4.5) 09/20/17 06:00 Magnesium 2.1 mg/dL (1.7-2.2) 09/20/17 06:00 Total Bilirubin 0.6 mg/dL (0.2-1.3) 09/20/17 06:00 AST 108 U/L (14-36) H D 09/20/17 06:00 ALT 55 U/L (7-56) 09/20/17 06:00 Alkaline Phosphatase 96 U/L (38-126) 09/20/17 06:00 Lactate Dehydrogenase 3368 U/L (333-699) H 09/20/17 06:00 Total Creatine Kinase 489 U/L (35-230) H 09/20/17 06:00 CK-MB (CK-2) 5.8 ng/mL (0.0-3.6) H 09/20/17 06:00 CK-MB (CK-2) % 1.2 % (2.5-3.0) L 09/20/17 06:00 Troponin I 61.90 ng/mL H* 09/20/17 06:00 Total Protein 6.6 g/dL (5.8-8.3) 09/20/17 06:00 Albumin 3.4 g/dL (3.0-4.8) 09/20/17 06:00 Globulin 3.1 gm/dL 09/20/17 06:00 Albumin/Globulin Ratio 1.1 (1.1-1.8) 09/20/17 06:00 Triglycerides 165 mg/dL (35-160) H 09/18/17 06:10 Cholesterol 171 mg/dL (130-200) 09/18/17 06:10 LDL Cholesterol Direct 109 mg/dL (0-129) 09/18/17 06:10 HDL Cholesterol 40 mg/dL (29-60) 09/18/17 06:10 TSH 3rd Generation 1.45 mIU/mL (0.46-4.68) 09/18/17 06:10 Blood Type O POSITIVE 09/17/17 13:25 Blood Type Confirm O POSITIVE 09/17/17 19:30 Antibody Screen Negative 09/17/17 13:25 BBK History Checked No verified bt 09/17/17 13:25 - Hospital Course Hospital Course: Ms. Castro is a 42 year old female with a past medical history of NIDDM2, HTN, mild intermittent asthma and Burns's Palsy who presented for chest pain while visiting from [place]. While in the ED, patient was found to ST elevation in leads V2-5 on 12-lead EKG and a Code Heart was called and was emergently transferred to the cardiac hospital laboratory technician. She was found to have complete occlusion of her pLAD, where two KULWINDER were placed, as well as stenosis of the dLAD, which was treated with balloon angioplasty. Patient was treated with Aspirin, lipitor , plavix, colace, ibuprofen, xanax, levemir, humulin, lisinopril, magnesium oxide, and metoprolol. Protonix was also administered for GI prophylaxis. During the course of her hospital stay, the patient underwent EKG, echocardiogram, head CT, extremity ultrasound, lung perfusion/ventilation scan, and chest xray. EKG showed sinus tachycardia at 104 bmp with T wave abnormality- lateral ischemia and recent SD. Echocardiogram showed EF of 20-25% and moderate to severe hypokinesis in the apical anterior wall, trace pericardial effusion. Head CT showed no abnormalities, extremity ultrasound showed no DVT, lung perfusion/ventilation scan showed low probability for a PE, and chest xray showed no active disease. Cardiology (Dr. Serna) was consulted in the management and treatment of this patient. He recommended to take aspirin 81mg daily, lipitor 80mg daily, plavix 75mg daily, lisinopril 2.5mg daily, and lopressor 25mg TID. Patient was also encouraged to ambulate. Patient instructed to continue home medications metformin 1000mg daily and enalapril 5mg daily. Start new medications as prescribed: aspirin 81mg daily, lipitor 80mg daily, plavix 75mg daily, glipizide 5mg daily, and metoprolol 12.5mg PO TID. Patient was educated on the correct way to take medications and was also instructed to follow up with [facility] scheduled for Wednesday09/24/17 at 1: 30 pm. She was instructed to resume activities as tolerated, stay hydrated, and eat a healthy diet. Patient further informed to return to the ED if symptoms return.Patient is now medically optimized for discharge. Discharge Exam - Head Exam Head Exam: NORMAL INSPECTION - Eye Exam Eye Exam: Normal appearance - ENT Exam ENT Exam: Mucous Membranes Moist - Respiratory Exam Respiratory Exam: Clear to PA & Lateral. absent: Rales, Rhonchi, Wheezes - Cardiovascular Exam Cardiovascular Exam: REGULAR RHYTHM, +S1, +S2. absent: Gallop, Rubs, Systolic Murmur - GI/Abdominal Exam GI & Abdominal Exam: Normal Bowel Sounds, Soft. absent: Tenderness - Extremities Exam Additional comments: no calf tenderness or pedal edema - Neurological Exam Neurological exam: Alert, Normal Gait, Oriented x3 - Psychiatric Exam Psychiatric exam: Normal Affect, Normal Mood - Skin Skin Exam: Dry, Normal Color, Warm Discharge Plan - Discharge Medications Prescriptions: Aspirin [Ecotrin] 81 mg PO DAILY #30 tabec Atorvastatin [Lipitor] 20 mg PO DIN #30 tab Clopidogrel [Plavix] 75 mg PO DAILY #30 tab GlipiZIDE [Glucotrol] 5 mg PO ACB #60 tab Ibuprofen [Motrin Tab] 600 mg PO Q6H 2 Days #8 tab Metoprolol Tartrate [Lopressor] 12.5 mg PO TID #60 tab - Follow Up Plan Condition: GUARDED Disposition: HOME/ ROUTINE Instructions: Heart Attack, Type 2 Diabetes, Cardiac Catheterization, Coronary Stenting, Heart Healthy Diet, Diabetes Exchange Diet Additional Instructions: Discharge instructions: Please follow up with [facility] scheduled for Wednesday09/24/17 at 1:30 pm Take your medications as prescribed Resume the metformin and enalapril. Start taking asa, plavix, lipitor, glipizide, and lopressor as prescribed Please return to the emergency room if the symptoms returns. Follow the cardiac catherization handout instructions. Referrals: [facility] at [facility] [Outside] PCP,NO [Primary Care Provider] - <Sally Mccarthy - Last Filed: 09/21/17 08:00> Provider - Provider Date of Admission: 09/19/17 02:23 Attending physician: Sally Mccarthy MD Primary care physician: NO PRIMARY CARE PROVIDER Hospital Course - Lab Results Lab Results: Most Recent Lab Values WBC 9.8 10^3/ul (4.5-11.0) 09/20/17 06:00 RBC 4.20 10^6/uL (3.5-6.1) 09/20/17 06:00 Hgb 9.9 g/dL (12.0-16.0) L 09/20/17 06:00 Hct 31.7 % (36.0-48.0) L 09/20/17 06:00 MCV 75.5 fl (80.0-105.0) L 09/20/17 06:00 MCH 23.6 pg (25.0-35.0) L 09/20/17 06:00 MCHC 31.2 g/dl (31.0-37.0) 09/20/17 06:00 RDW 16.3 % (11.5-14.5) H 09/20/17 06:00 Plt Count 395 10^3/uL (120.0-450.0) 09/20/17 06:00 MPV 9.9 fl (7.0-11.0) 09/20/17 06:00 Gran % 48.5 % (50.0-68.0) L 09/20/17 06:00 Lymph % (Auto) 40.7 % (22.0-35.0) H 09/20/17 06:00 [place] % (Auto) 7.8 % (1.0-6.0) H 09/20/17 06:00 Eos % (Auto) 2.5 % (1.5-5.0) 09/20/17 06:00 Baso % (Auto) 0.5 % (0.0-3.0) 09/20/17 06:00 Gran # 4.75 (1.4-6.5) 09/20/17 06:00 Lymph # (Auto) 4.0 (1.2-3.4) H 09/20/17 06:00 [place] # (Auto) 0.8 (0.1-0.6) H 09/20/17 06:00 Eos # (Auto) 0.3 (0.0-0.7) 09/20/17 06:00 Baso # (Auto) 0.05 K/mm3 (0.0-2.0) 09/20/17 06:00 PT 11.8 SECONDS (9.4-12.5) 09/17/17 13:25 INR 1.03 (0.93-1.08) 09/17/17 13:25 Sodium 139 mmol/L (132-148) 09/20/17 06:00 Potassium 4.4 mmol/L (3.6-5.0) 09/20/17 06:00 Chloride 101 mmol/L (98-107) 09/20/17 06:00 Carbon Dioxide 30 mmol/L (21-33) 09/20/17 06:00 Anion Gap 12 (10-20) 09/20/17 06:00 BUN 18 mg/dL (7-21) 09/20/17 06:00 Creatinine 0.8 mg/dl (0.7-1.2) 09/20/17 06:00 Est GFR ( Amer) > 60 09/20/17 06:00 Est GFR (Non-Af Amer) > 60 09/20/17 06:00 POC Glucose (mg/dL) 148 mg/dL (65-110) H 09/20/17 16:00 Random Glucose 216 mg/dL (70-110) H 09/20/17 06:00 Hemoglobin A1c 10.5 % (4.2-6.5) H 09/18/17 06:10 Calcium 8.6 mg/dL (8.4-10.5) 09/20/17 06:00 Phosphorus 3.8 mg/dL (2.5-4.5) 09/20/17 06:00 Magnesium 2.1 mg/dL (1.7-2.2) 09/20/17 06:00 Total Bilirubin 0.6 mg/dL (0.2-1.3) 09/20/17 06:00 AST 108 U/L (14-36) H D 09/20/17 06:00 ALT 55 U/L (7-56) 09/20/17 06:00 Alkaline Phosphatase 96 U/L (38-126) 09/20/17 06:00 Lactate Dehydrogenase 3368 U/L (333-699) H 09/20/17 06:00 Total Creatine Kinase 489 U/L (35-230) H 09/20/17 06:00 CK-MB (CK-2) 5.8 ng/mL (0.0-3.6) H 09/20/17 06:00 CK-MB (CK-2) % 1.2 % (2.5-3.0) L 09/20/17 06:00 Troponin I 61.90 ng/mL H* 09/20/17 06:00 Total Protein 6.6 g/dL (5.8-8.3) 09/20/17 06:00 Albumin 3.4 g/dL (3.0-4.8) 09/20/17 06:00 Globulin 3.1 gm/dL 09/20/17 06:00 Albumin/Globulin Ratio 1.1 (1.1-1.8) 09/20/17 06:00 Triglycerides 165 mg/dL (35-160) H 09/18/17 06:10 Cholesterol 171 mg/dL (130-200) 09/18/17 06:10 LDL Cholesterol Direct 109 mg/dL (0-129) 09/18/17 06:10 HDL Cholesterol 40 mg/dL (29-60) 09/18/17 06:10 TSH 3rd Generation 1.45 mIU/mL (0.46-4.68) 09/18/17 06:10 Blood Type O POSITIVE 09/17/17 13:25 Blood Type Confirm O POSITIVE 09/17/17 19:30 Antibody Screen Negative 09/17/17 13:25 BBK History Checked No verified bt 09/17/17 13:25 Attending/Attestation - Attestation I have personally seen and examined this patient.: Yes I have fully participated in the care of the patient.: Yes I have reviewed all pertinent clinical information, including history, physical exam and plan: Yes Notes (Text): 09/21/17 07:55 Attending note; Patient seen and examined with resident. Patient's by the bedside. The patient denies any chest pain, shortness of breath. Tachycardia is resolving. Blood pressure is stable. Denies any dizziness. Patient is a 42-year-old female with past medical history significant for non- insulin-dependent type 2 diabetes, hypertension, mild intermittent asthma, and Burns's palsy that presented to the emergency room with left-sided chest pain. Patient found to have an acute STEMI. 1. STEMI, status post cardiac cath which showed complete occlusion of pLAD, s/p KULWINDER x 2; stenosis of the dLAD, which was treated with balloon angioplasty. Status post Integrilin drip. Continue aspirin, Plavix, Lipitor, Lopressor. lisinopril was held secondary to hypotension. Cardiology evaluation appreciated. MUGA Scan showed ejection fraction of 36%. 2. Pericarditis. Continue ibuprofen per cardiology. 3.Sinus tachycardia. resolving .VQ scan low probability for PE. Bilateral lower extremity venous Dopplers negative for DVT. Continue beta guanaco. 4. Ydu-uwydgzk-ukgzmuuwy type 2 diabetes with hyperglycemia. patient uses metformin at home. Glipizide added . Diabetic education given. Dietary education given . Patient will be discharged home today. Medication delivered by the bedside. Medication compliance insisted in detail. Dietary compliance insisted in detail. [facility] clinic appointment given. Advised to complete [employer] Paperwork before clinic appointment. Patient will go back to [place] in 1 month. Advised to follow-up with PMD and cardiology in [place].
--- NOTE | 2017-09-20 19:26 | CARD ---
APPROVED REPORT Date of service: 09/20/2017 EKG Measurement Heart [id number] <Conclusion> Normal sinus rhythm Anterior infarct, possibly recent Abnormal ECG
--- NOTE | 2017-09-20 21:27 | CARD ---
APPROVED REPORT Date of service: 09/20/2017 INDICATION Acute W[place] S/P, ANT.WALL W[place],PTC,EVALUATE LV AND RV EF. PROCEDURE The above named patient recieved 26.3 millicuries of Tc99m tagged red blood cells intravenously. After achieving equilibrium, gated imaging of 16/frame/cycle was performed utillizing Gamma camera interfaced with a digital computer and gated device. Gated imaging was then performed in the left anterior oblique, anterior, and the left lateral projections. Findings Left Ventricle: The quality of the study is good. The left ventricle is moderately enlarged in size with thickened myocardium . The right ventricle is normal in size. Wall motion study shows diffuse hypokinesis of the left ventricle. RV wall motion is normal. The right atrium is dynamic. The remainder of the study is unremarkable. Impressions Moderate LV dysfunction with diffuse hypokinesis. LVEF = 36%. Normal RV wall motion.
== END 2017-09-20 17:09 | disposition home or self-care (01) | DRG 853 ==
LOC: ED 13:12 → CATH 13:42 → CCU 15:25 → 2RNO 09-18 13:11 → CATH 09-19 02:23
PROVIDERS: ADMIT Hospitalist; ATTEND Internal Medicine
PROC: 027034Z Dilation of Coronary Artery, One Artery with Drug-eluting Intraluminal Device, Percutaneous Approach (ICD-10-PCS; principal; 2017-09-17)
PROC: 4A023N7 Measurement of Cardiac Sampling and Pressure, Left Heart, Percutaneous Approach (ICD-10-PCS; 2017-09-17)
PROC: B2151ZZ Fluoroscopy of Left Heart using Low Osmolar Contrast (ICD-10-PCS; 2017-09-17)
PROC: B2111ZZ Fluoroscopy of Multiple Coronary Arteries using Low Osmolar Contrast (ICD-10-PCS; 2017-09-17)
PROC: 3E033PZ Introduction of Platelet Inhibitor into Peripheral Vein, Percutaneous Approach (ICD-10-PCS; 2017-09-17)
DX: I21.09 ST elevation (STEMI) myocardial infarction involving other coronary artery of anterior wall (principal); E11.65 Type 2 diabetes mellitus with hyperglycemia; I25.10 Atherosclerotic heart disease of native coronary artery without angina pectoris; I25.5 Ischemic cardiomyopathy; I11.9 Hypertensive heart disease without heart failure; I31.3 Pericardial effusion (noninflammatory); J45.20 Mild intermittent asthma, uncomplicated; G51.0 Bell's palsy; K21.9 Gastro-esophageal reflux disease without esophagitis; D64.9 Anemia, unspecified; R00.0 Tachycardia, unspecified; Z79.02 Long term (current) use of antithrombotics/antiplatelets; Z79.82 Long term (current) use of aspirin; Z79.84 Long term (current) use of oral hypoglycemic drugs

== ENCOUNTER 2017-09-28 06:48 | Inpatient (IN) | payer OTHER ==
[2017-09-28 06:54] VITALS: BMI 27.4
[2017-09-28] MEDS ORDERED: Albuterol-Ipratrop 3 mg / 0.5 (3 ml) UD IH STA (07:18)
--- NOTE | 2017-09-28 07:25 | ED PDOC ---
Arrival/HPI <Jd Simon - Last Filed: 09/28/17 07:46> - General Historian: Patient, Spouse - History of Present Illness Time/Duration: 24 hours Symptom Onset: Sudden Symptom Course: Worsening <Renny Coleman - Last Filed: 09/28/17 11:43> - General Chief Complaint: Shortness Of Breath Time Seen by Provider: 09/28/17 07:00 - History of Present Illness Narrative History of Present Illness (Text): Patient is a 42 year old female with PMH of recent NSTEMI (s/p 2 drug-eluting stents, on ASA and plavix), DM2, HTN, and asthma who presents to ED with shortness of breath worsening since yesterday. She states that it feels different than her prior asthma attacks. She states that she is also having some upper back pain that is worsened when she inhales. 09/28/17 07:22 (Renny Coleman) Past Medical History - Provider Review Nursing Documentation Reviewed: Yes <Jd Simon - Last Filed: 09/28/17 07:46> - Travel History Have you recently traveled outside [place] w/in the past 3 mons?: No - Infectious Disease Hx of Infectious Diseases: None - Reproductive Menopause: No Currently : Unknown - Cardiac Hx Cardiac Disorders: Yes Hx Angina: Yes Hx Atrial Fibrillation: No Hx Hypertension: Yes - Pulmonary Hx Respiratory Disorders: Yes Hx Asthma: Yes - Neurological Hx Neurological Disorder: Yes Other/Comment: left sided evans's palsy - HEENT Hx HEENT Disorder: No - Renal Hx Renal Disorder: No - Endocrine/Metabolic Hx Endocrine Disorders: Yes Hx Diabetes Mellitus Type 2: Yes - Hematological/Oncological Hx Blood Disorders: No - Integumentary Hx Dermatological Disorder: No - Musculoskeletal/Rheumatological Hx Musculoskeletal Disorders: No Hx Falls: No - Gastrointestinal Hx Gastrointestinal Disorders: No - Genitourinary/Gynecological Hx Genitourinary Disorders: Yes (TUBAL LIGATION,EXTOPIC ) - Psychiatric Hx Psychophysiologic Disorder: No Hx Substance Use: No - Surgical History Hx Cardiac Catheterization: Yes (TR BAND L RADIAL) <Renny Coleman - Last Filed: 09/28/17 11:43> - Patient History Narrative Patient History: NSTEMI, DM2, HTN, asthma (Renny Coleman) Family/Social History - Physician Review Nursing Documentation Reviewed: Yes Family/Social History: Unknown Family HX <Jd Simon - Last Filed: 09/28/17 07:46> Smoking Status: Never Smoked Hx Alcohol Use: No Hx Substance Use: No <Renny Coleman - Last Filed: 09/28/17 11:43> Allergies/Home Meds <Jd Simon - Last Filed: 09/28/17 07:46> <Renny Coleman - Last Filed: 09/28/17 11:43> Allergies/Adverse Reactions: Allergies nifedipine Allergy (Verified 09/28/17 06:54) ITCHING Home Medications: Home Meds Medication Instructions Recorded Confirmed Enalapril Maleate [Vasotec] 1 tab PO DAILY 09/17/17 09/17/17 MetFORMIN [glucoPHAGE] 1 tab PO DAILY 09/17/17 09/17/17 Review of Systems - Review of Systems Constitutional: absent: Weight Change, Fevers, Night Sweats Eyes: absent: Vision Changes ENT: absent: Sore Throat, Rhinorrhea Respiratory: SOB, Cough. absent: Wheezing Cardiovascular: absent: Chest Pain, Palpitations, Edema, Syncope Gastrointestinal: absent: Abdominal Pain, Diarrhea, Nausea, Vomiting Genitourinary Female: absent: Dysuria, Frequency Musculoskeletal: Back Pain. absent: Arthralgias, Joint Swelling Skin: absent: Rash, Pruritis Neurological: absent: Headache, Dizziness <Renny Coleman - Last Filed: 09/28/17 11:43> Physical Exam Vital Signs Reviewed: Yes Temperature: Afebrile Blood Pressure: Hypertensive Pulse: Tachycardic Respiratory Rate: Tachypneic Appearance: Positive for: Non-Toxic, Uncomfortable Pain Distress: Mild Mental Status: Positive for: Alert and Oriented X 3 - Systems Exam Head: Present: Atraumatic, Normocephalic Pupils: Present: PERRL Extroacular Muscles: Present: EOMI Conjunctiva: Present: Normal Mouth: Present: Moist Mucous Membranes Pharnyx: Present: Normal. No: ERYTHEMA, EXUDATE, TONSILS ENLARGED Neck: Present: Normal Range of Motion Respiratory/Chest: Present: Clear to Auscultation. No: Accessory Muscle Use, Wheezes, Rales, Rhonchi Cardiovascular: Present: Normal S1, S2, Tachycardic. No: Murmurs, Rub, Gallop Abdomen: Present: Normal Bowel Sounds. No: Tenderness, Rebound, Guarding Back: Present: Paraspinal Tenderness. No: CVA Tenderness Upper Extremity: Present: Normal Inspection Lower Extremity: Present: Normal Inspection. No: CALF TENDERNESS, Cyanosis, Tenderness Skin: Present: Warm, Dry, Normal Color Psychiatric: Present: Alert, Oriented x 3 <Renny Coleman - Last Filed: 09/28/17 11:43> Vital Signs Temp Pulse Resp BP Pulse Ox 09/28/17 11:29 108 H 17 131/90 96 09/28/17 09:00 108 H 16 126/88 97 09/28/17 07:04 18 09/28/17 06:54 97.9 F 108 H 21 130/92 H 100 Medical Decision Making - Lab Interpretations I have reviewed the lab results: Yes - RAD Interpretation Pants Closer: Radiologist <Jd Simon - Last Filed: 09/28/17 07:46> Reassessment Condition: Improving,but remains with symptoms - Lab Interpretations I have reviewed the lab results: Yes - RAD Interpretation Pants Closer: Radiologist - EKG Interpretation Interpreted by ED Physician: Yes (similar to prior EKG with new tachycardia) Type: 12 lead EKG Comparison: Similar to previous EKG <Renny Coleman - Last Filed: 09/28/17 11:43> ED Course and Treatment: 09/28/17 In agreement with resident note, which includes further HPI details. Patient was seen and evaluated with resident, came up with plan and treatment together. (Jd Simon) Patient reports improved symptoms after duo-neb treatment but SOB remains. Given history of recent MT and other chronic conditions, will admit to observation. Case and plan were discussed with admitting physician Dr. Olmedo. Cardiology consult placed. 09/28/17 11:41 (Renny Coleman) - Lab Interpretations Lab Results: 09/28/17 07:30 09/28/17 07:30 Lab Results 09/28/17 08:45: pO2 26 L, VBG pH 7.39, VBG pCO2 45.0, VBG HCO3 27.2, VBG Total CO2 28.6 H, VBG O2 Sat (Calc) 50.7, VBG Base Excess 1.7, VBG Potassium 4.6, Glucose 201 H, Lactate 0.8, FiO2 21.0, Sodium 139.0, Chloride 109.0 H, Venous Blood Potassium 4.6 09/28/17 07:30: Sodium 139, Potassium 4.5, Chloride 106, Carbon Dioxide 25, Anion Gap 13, BUN 16, Creatinine 0.7, Est GFR ( Amer) > 60, Est GFR (Non- Af Amer) > 60, Random Glucose 194 H, Calcium 8.7, Phosphorus 3.4, Magnesium 1.8 , Total Bilirubin 0.5, AST 26, ALT 23, Alkaline Phosphatase 100, Lactate Dehydrogenase 1008 H, Total Creatine Kinase 93, Troponin I 1.60 H* D, NT-Pro-B Natriuret Pep 5240 H, Total Protein 6.8, Albumin 3.6, Globulin 3.2, Albumin/ Globulin Ratio 1.1 09/28/17 07:30: WBC 11.2 H, RBC 4.01, Hgb 9.6 L, Hct 30.3 L, MCV 75.6 L, MCH 23.9 L, MCHC 31.7, RDW 16.5 H, Plt Count 496 H, MPV 10.1, Gran % 58.1, Lymph % ( Auto) 31.2, [place] % (Auto) 7.3 H, Eos % (Auto) 2.6, Baso % (Auto) 0.8, Gran # 6.53 H, Lymph # (Auto) 3.5 H, [place] # (Auto) 0.8 H, Eos # (Auto) 0.3, Baso # ( Auto) 0.09 09/28/17 07:30: D-Dimer, Quantitative 915 - RAD Interpretation Radiology Orders: 09/28/17 07:17 CXR [CHEST PORTABLE] [RAD] Stat 09/28/17 08:40 ANGIO CHEST PE PROTOCOL [CT] Stat - EKG Interpretation EKG Interpretation (Text): 09/28/17 07:40 EKG similar to prior with new onset tachycardia (Renny Coleman) - Medication Orders Current Medication Orders: Discontinued Medications Albuterol/Ipratropium (Duoneb 3 Mg/0.5 Mg (3 Ml) Ud) 3 ml IH STAT STA Stop: 09/28/17 07:19 Last Admin: 09/28/17 07:43 Dose: 3 ml Aspirin (Aspirin) 325 mg PO STAT STA Stop: 09/28/17 07:31 Last Admin: 09/28/17 08:00 Dose: 325 mg - PA / REAL ESTATE ASSOCIATE ATTORNEY / Resident Statement /DO has reviewed & agrees with the documentation as recorded. MD/DO has examined the patient and agrees with the treatment plan. - Scribe Statement The provider has reviewed the documentation as recorded by the Scribe <Jd Simon - Last Filed: 09/28/17 07:46> <Renny Coleman - Last Filed: 09/28/17 11:43> - Scribe Statement Lorrie Bonner Provider Scribe Attestation: All medical record entries made by the Scribe were at my direction and personally dictated by me. I have reviewed the chart and agree that the record accurately reflects my personal performance of the history, physical exam, medical decision making, and the department course for this patient. I have also personally directed, reviewed, and agree with the discharge instructions and disposition. (Jd Simon) Disposition/Present on Arrival <Jd Simon - Last Filed: 09/28/17 07:46> - Present on Arrival Any Indicators Present on Arrival: No History of DVT/PE: No History of Uncontrolled Diabetes: No Urinary Catheter: No History of Decub. Ulcer: No History Surgical Site Infection Following: None - Disposition Have Diagnosis and Disposition been Completed?: Yes Disposition Time: 10:59 Patient Plan: Admission, Observation, Telemetry <Renny Coleman - Last Filed: 09/28/17 11:43> - Disposition Diagnosis: SOB (shortness of breath) Disposition: HOSPITALIZED Patient Problems: Current Active Problems Problem Status Onset SOB (shortness of breath) Acute Condition: FAIR
[2017-09-28 08:06] LABS: ALB/GLOB RATIO 1.1 (1.1-1.8); ALBUMIN 3.6 g/dL (3.0-4.8); ALT/SGPT 23 U/L (7-56); AST/SGOT 26 U/L (14-36); BASO # 0.09 K/mm3 (0.0-2.0); BASO % 0.8 % (0.0-3.0); BLOOD UREA NITROGEN 16 mg/dL (7-21); CALCIUM 8.7 mg/dL (8.4-10.5); EOS # 0.3 (0.0-0.7); EOS % 2.6 % (1.5-5.0); GFR AFRICAN-AMERICAN > 60; GFR NON-AFRICAN AMERICAN > 60; GRAN # 6.53 (1.4-6.5); GRAN % 58.1 % (50.0-68.0); HEMOGLOBIN 9.6 g/dL (12.0-16.0); LYMPH # 3.5 (1.2-3.4); LYMPH % 31.2 % (22.0-35.0); MEAN CELL VOLUME 75.6 fl (80.0-105.0); MEAN CORPUSCULAR HEMOGLOBIN 23.9 pg (25.0-35.0); MEAN CORPUSCULAR HGB CONC 31.7 g/dl (31.0-37.0); MEAN PLATELET VOLUME 10.1 fl (7.0-11.0); MONO # 0.8 (0.1-0.6); MONO % 7.3 % (1.0-6.0); RBC 4.01 10^6/uL (3.5-6.1); RED CELL DISTRIBUTION WIDTH 16.5 % (11.5-14.5); WHITE BLOOD COUNT 11.2 10^3/ul (4.5-11.0)
[2017-09-28 08:39] LABS: B-TYPE NATRIURETIC PEPTIDE 5240 pg/mL (0-450)
[2017-09-28] MEDS ORDERED: Iohexol 350 MG/100 ML VIAL ONE (08:48)
--- NOTE | 2017-09-28 08:57 | RAD ---
Date of service: 09/28/2017 HISTORY: SOB COMPARISON: 09/17/2017 FINDINGS: LUNGS: No consolidation. Interstitial lung markings slightly prominent-mild pulmonary interstitial edema under other interstitial process -a consideration. PLEURA: No significant pleural effusion identified, no pneumothorax apparent. CARDIOVASCULAR: Probable top-normal heart size. Possible mild pulmonary venous congestion OSSEOUS STRUCTURES: No significant abnormalities. VISUALIZED UPPER ABDOMEN: Normal. OTHER FINDINGS: Right hemidiaphragm slightly asymmetrically elevated. IMPRESSION: Interstitial lung markings appear mildly prominent nonspecific. Correlate clinically -findings as noted above.
[2017-09-28 09:02] LABS: VENOUS BLOOD GAS BASE EXCESS 1.7 mmol/L (0.0-2.0); VENOUS BLOOD GAS PO2 26 mm/Hg (30-55); VENOUS BLOOD PH 7.39 (7.32-7.43)
--- NOTE | 2017-09-28 09:34 | CT ---
Date of service: 09/28/2017 PROCEDURE: CT Chest with contrast (Pulmonary Angiogram) HISTORY: recent [place], r/o PE COMPARISON: None available. TECHNIQUE: Axial computed tomography images were obtained of the chest in the pulmonary arterial phase of enhancement. Coronal and sagittal reformatted images were created and reviewed. Intravenous contrast dose: 100 mL of Omnipaque 350 Radiation dose: Total exam DLP = 549 mGy-cm. This CT exam was performed using one or more of the following dose reduction techniques: Automated exposure control, adjustment of the mA and/or kV according to patient size, and/or use of iterative reconstruction technique. FINDINGS: PULMONARY ARTERIES: Unremarkable. No pulmonary embolism. AORTA: No acute findings. No thoracic aortic aneurysm. LUNGS: Bibasilar trace discoid like compressive atelectatic changes compressive from the bilateral posterior pleural effusions PLEURAL SPACES: Bilateral posterior pleural effusions. No pneumothorax. HEART: Cardiomegaly. No pericardial effusion. Coronary artery stent LYMPH NODES: No lymphadenopathy. BONES, CHEST WALL: Unremarkable. No fracture or destructive lesion OTHER FINDINGS: Bilateral minimal prominence to each extrarenal pelvis IMPRESSION: . No pulmonary embolus. Bilateral pleural effusions -as above.
[2017-09-28 12:10] LABS: BARBITURATES, UR NEGATIVE (NEGATIVE); BENZODIAZEPINES, UR NEGATIVE (NEGATIVE); OPIATES, UR NEGATIVE (NEGATIVE); PHENCYCLIDINE, UR NEGATIVE (NEGATIVE)
[2017-09-28 12:11] LABS: URINE BILIRUBIN NEGATIVE (NEGATIVE); URINE BLOOD NEGATIVE (NEGATIVE); URINE GLUCOSE (UA) 100 mg/dL (NEGATIVE); URINE LEUKOCYTE ESTERASE NEGATIVE Leu/uL (NEGATIVE); URINE PROTEIN NEGATIVE mg/dL (<30 mg/dL); URINE UROBILINOGEN 0.2 E.U./dL (<1 E.U./dL)
[2017-09-28 12:12] LABS: URINE APPEARANCE CLEAR (CLEAR); URINE COLOR YELLOW (YELLOW)
[2017-09-28] MEDS: Pantoprazole 40 mg EC Tab PO SCH (12:35)
--- NOTE | 2017-09-28 14:17 | CARD ---
APPROVED REPORT Date of service: 09/28/2017 EKG Measurement Heart [id number] <Conclusion> Sinus tachycardia with fusion complexes Septal infarct, age undetermined T wave abnormality, consider anterior ischemia Abnormal ECG
--- NOTE | 2017-09-28 15:04 | CARD ---
APPROVED REPORT Date of service: 09/28/2017 EXAM: Two-dimensional and M-mode echocardiogram with Doppler and color Doppler. INDICATION Chest Pain 2D DIMENSIONS Left Atrium (2D)4.2 (1.6-4.0cm)IVSd1.3 (0.7-1.1cm) LVDd5.1 (3.9-5.9cm)PWd1.3 (0.7-1.1cm) LVDs4.4 (2.5-4.0cm)FS (%) 13.3 % LVEF (%)28.5 (>50%) M-Mode DIMENSIONS Aortic Root2.80 (2.2-3.7cm)Aortic Cusp Exc.2.00 (1.5-2.0cm) Aortic Valve AoV Peak Qckmrtia246.0cm/Bijan Peak GR.5mmHg Mitral Valve E/A ratio0.0 TDI E/Lateral E'0.0E/Medial E'0.0 Tricuspid Valve TR Peak [id number] [id number] Peak Gr.36mmHg [id number] LEFT VENTRICLE The left ventricle is normal size. There is mild concentric left ventricular hypertrophy. The ejection fraction is severely impaired. There is akinesis of the apica, septall and anterior howe. RIGHT VENTRICLE The right ventricle is normal size. The right ventricular systolic function is normal. ATRIA The left atrium is mildly dilated. The right atrium size is normal. The interatrial septum is intact with no evidence for an atrial septal defect. AORTIC VALVE The aortic valve is normal in structure. There is trace aortic regurgitation. There is no aortic valvular stenosis. MITRAL VALVE The mitral valve is normal in structure. Mitral regurgitation is moderate to severe. TRICUSPID VALVE The tricuspid valve is normal in structure. There is mild tricuspid regurgitation. PULMONIC VALVE The pulmonary valve is normal in structure. GREAT VESSELS The aortic root is normal in size. The IVC is normal in size and collapses >50% with inspiration. PERICARDIAL EFFUSION There is no pleural effusion. There is no pericardial effusion. <Conclusion> Dilated LA. Moderate to severely reduced LV systolic function with apical, septal and anterior akinesis. Overall EF 30-35%. Moderate to severe MR. Mild TR.
[2017-09-28] MEDS ORDERED: Enoxaparin 60 mg Syringe SC SCH (16:00)
[2017-09-28] MEDS ORDERED: Pneumococcal 23-Valent Vaccine IM ONE (16:22)
[2017-09-28] MEDS: Insulin Lispro (humaLOG) LOW Coverage SC SCH ×2 (17:06→22:14)
[2017-09-28] MEDS: Magnesium Chloride 64 mg ER Tab PO SCH (17:07)
--- NOTE | 2017-09-28 17:51 | CP.PCM.HP ---
<Tomas Treviño - Last Filed: 09/28/17 17:47> History of Present Illness - History of Present Illness History of Present Illness: Tomas Treviño, PGY-1 History and Physical for Hospitalist Service CC: Chest Pain and Shortness of Breath HPI: Ms. Castro is a 42 year old female with a past medical history significant for NIDDM2, HTN, mild intermittent asthma and Burns's Palsy of L face who presented for chest pain and shortness of breath. Patient reports a new onset shortness of breath when relaxing in a chair earlier today. Patient reports she was unable to take deep breaths due to a central substernal chest pain that is dull. Patient reports this is a different type of chest pain for which patient was admitted earlier this month for two KULWINDER in the LAD. Patient admits to some generalized weakness and lack of appetite, but denies dizziness, palpitations, leg pain, swelling, fever, chills, headache, changes in her vision, sore throat , lower extremity swelling, cough, wheezing, hemoptysis, abdominal pain, N/V/D/C , dark stools, hematemesis, melena, changes in urine output, skin changes, or any numbness/tingling of any extremity. Patient notes echymoses in left forearm up to elbow where catheterization took place. On last admission 10 days ago, patient was found to ST elevation in leads V2-5 on 12-lead EKG and a Code Heart was called. She was given loading doses of both ASA and Plavix as well as started on an Integrilin drip prior to being emergently transferred to the cardiac physical laboratory assistant. She was found to have complete occlusion of her pLAD, where two KULWINDER were placed, as well as stenosis of the dLAD, which was treated with balloon angioplasty. PMH: NIDDM2, HTN, mild intermittent asthma, ectopic and Burns's Palsy PSH: Tubal Ligation s/p ectopic (~15 years ago), three uncomplicated vaginal deliveries Family History: Mother-Scleroderma; Father-CVA at age 55 Social History: Denies tobacco, alcohol or illicit drug abuse; Lives in [place] with children; Employed as a Cnc Grinder Allergies: NKDA Home Medications: Enalapril, Metformin and albuterol inhaler PMD: Seen at unspecified clinic in [place] but patient reports that she hasn't been in a "long time" Senior Marketing Manager: Dr. Jeronimo (Dr. Serna performed KULWINDER) Present on Admission - Present on Admission Any Indicators Present on Admission: No Review of Systems - Review of Systems Review of Systems: 12 point ROS completed and negative except as described in HPI. Past Patient History - Infectious Disease Hx of Infectious Diseases: None - Past Social History Smoking Status: Never Smoked - CARDIAC Hx Cardiac Disorders: Yes Hx Angina: Yes - PULMONARY Hx Respiratory Disorders: Yes Hx Asthma: Yes - NEUROLOGICAL Hx Neurological Disorder: Yes Other/Comment: left sided burns's palsy - HEENT Hx HEENT Problems: No - RENAL Hx Chronic Kidney Disease: No - ENDOCRINE/METABOLIC Hx Endocrine Disorders: Yes Hx Diabetes Mellitus Type 2: Yes - HEMATOLOGICAL/ONCOLOGICAL Hx Blood Disorders: No - INTEGUMENTARY Hx Dermatological Problems: No - MUSCULOSKELETAL/RHEUMATOLOGICAL Hx Musculoskeletal Disorders: No Hx Falls: No - GASTROINTESTINAL Hx Gastrointestinal Disorders: No - GENITOURINARY/GYNECOLOGICAL Hx Genitourinary Disorders: Yes (TUBAL LIGATION,EXTOPIC ) - PSYCHIATRIC Hx Psychophysiologic Disorder: No Hx Substance Use: No - SURGICAL HISTORY Hx Surgeries: Yes (CARD CATH TR BAND LEFT RADIAL 09-17-17) Hx Cardiac Catheterization: Yes (TR BAND L RADIAL) Other/Comment: ectopic Meds Allergies/Adverse Reactions: Allergies Allergy/AdvReac Type Severity Reaction Status Date / Time nifedipine Allergy ITCHING Verified 09/28/17 14:28 Physical Exam - Constitutional Appears: Well, Non-toxic, No Acute Distress - Head Exam Head Exam: ATRAUMATIC, NORMAL INSPECTION, NORMOCEPHALIC - Eye Exam Eye Exam: EOMI, Normal appearance Pupil Exam: PERRL - ENT Exam ENT Exam: Mucous Membranes Moist - Neck Exam Neck exam: Positive for: Normal Inspection - Respiratory Exam Respiratory Exam: Decreased Breath Sounds, Rales. absent: Chest Wall Tenderness , Rhonchi, Wheezes, Respiratory Distress Additional comments: mild in bilateral lower lobes - Cardiovascular Exam Cardiovascular Exam: Tachycardia, RRR, +S1, +S2. absent: Rubs - GI/Abdominal Exam GI & Abdominal Exam: Normal Bowel Sounds, Soft. absent: Organomegaly, Tenderness - Extremities Exam Extremities exam: Positive for: pedal pulses present. Negative for: pedal edema Additional comments: ecchymoses on L forearm up to elbow - Neurological Exam Neurological exam: Alert, Altered, Oriented x3 - Psychiatric Exam Psychiatric exam: Normal Affect, Normal Mood - Skin Skin Exam: Dry, Intact, Normal Color, Warm Results - Vital Signs Recent Vital Signs: Last Vital Signs Temp 97.9 F 09/28/17 15:49 Pulse 101 H 09/28/17 17:43 Resp 17 09/28/17 15:49 BP 131/96 H 09/28/17 17:43 Pulse Ox 98 09/28/17 13:17 - Labs Result Diagrams: 09/28/17 07:30 09/28/17 07:30 Labs: Laboratory Results - last 24 hr 09/28/17 09/28/17 09/28/17 11:05 11:11 12:31 POC Glucose (mg/dL) 127 H Urine Color Yellow Urine Appearance Clear Urine pH 6.0 Ur Specific Roebling >= 1.030 Urine Protein Negative Urine Glucose (UA) 100 H Urine Ketones Negative Urine Blood Negative Urine Nitrate Negative Urine Bilirubin Negative Urine Urobilinogen 0.2 Ur Leukocyte Esterase Negative Urine Opiates Screen Negative Urine Methadone Screen Negative Ur Barbiturates Screen Negative Ur Phencyclidine Scrn Negative Ur Amphetamines Screen Negative U Benzodiazepines Scrn Negative U Oth Cocaine Metabols Negative U Cannabinoids Screen Negative 09/28/17 17:02 POC Glucose (mg/dL) 180 H Urine Color Urine Appearance Urine pH Ur Specific Roebling Urine Protein Urine Glucose (UA) Urine Ketones Urine Blood Urine Nitrate Urine Bilirubin Urine Urobilinogen Ur Leukocyte Esterase Urine Opiates Screen Urine Methadone Screen Ur Barbiturates Screen Ur Phencyclidine Scrn Ur Amphetamines Screen U Benzodiazepines Scrn U Oth Cocaine Metabols U Cannabinoids Screen Assessment & Plan - Assessment and Plan (Free Text) Assessment: Assessment: 42 year old female with a past medical history significant for NIDDM2, HTN, mild intermittent asthma and Burns's Palsy who presented for chest pain and shortness of breath. While in the ED, patient received breathing treatment upon which symptoms improved. Plan: 1. Chest Pain r/o ACS vs Adnis's Syndrome vs HFrEF exacerbation - EKG showed old anterolateral infarct - BNP 5240 - Trop 1.6. Will trend - F/u troponins and isoenzymes to r/o reinfarction tonight and tomorrow - Repeat echo: EF of 30-35%, moderate to severe MR, moderate to severely reduced LV systolic function with apical, septal, and anterior akinesis - Chest CT shows bilateral pleural effusion - Continue ASA and Plavix - Lasix 40 IV BID - c/w Metoprolol 50 PO BID, Lisinopril 5 PO - Cardiology consulted Dr. Lopez, recommendations appreciated - F/u electrophysiology consult Dr. Martínez 2. R/O Pulmonary Embolism - Continued angina in setting of KULWINDER - Echo confirmed no PE 3. History of NIDDM2 - ISS-Low and Accuchecks ACHS 4. History of Asthma - Duonebs PRN Diet: Heart Healthy/Moderate Carbohydrate Consistent GI Prophylaxis: Protonix DVT Prophylaxis: Lovenox 60 q12 SC Patient seen, case reviewed, and plan discussed with Dr. Olmedo. Tomas Treviño, PGY-1 <Nixon Olmedo - Last Filed: 09/29/17 06:49> Results - Vital Signs Recent Vital Signs: Last Vital Signs Temp 98.3 F 09/29/17 06:00 Pulse 87 09/29/17 06:00 Resp 20 09/29/17 06:00 BP 122/92 H 09/29/17 06:00 Pulse Ox 97 09/29/17 06:00 - Labs Result Diagrams: 09/28/17 07:30 09/28/17 07:30 Labs: Laboratory Results - last 24 hr 09/28/17 09/28/17 09/28/17 11:05 11:11 12:31 POC Glucose (mg/dL) 127 H Lactate Dehydrogenase Total Creatine Kinase Troponin I Urine Color Yellow Urine Appearance Clear Urine pH 6.0 Ur Specific Roebling >= 1.030 Urine Protein Negative Urine Glucose (UA) 100 H Urine Ketones Negative Urine Blood Negative Urine Nitrate Negative Urine Bilirubin Negative Urine Urobilinogen 0.2 Ur Leukocyte Esterase Negative Urine Opiates Screen Negative Urine Methadone Screen Negative Ur Barbiturates Screen Negative Ur Phencyclidine Scrn Negative Ur Amphetamines Screen Negative U Benzodiazepines Scrn Negative U Oth Cocaine Metabols Negative U Cannabinoids Screen Negative 09/28/17 09/28/17 17:02 20:47 POC Glucose (mg/dL) 180 H Lactate Dehydrogenase 739 H Total Creatine Kinase 84 Troponin I 1.29 H* Urine Color Urine Appearance Urine pH Ur Specific Roebling Urine Protein Urine Glucose (UA) Urine Ketones Urine Blood Urine Nitrate Urine Bilirubin Urine Urobilinogen Ur Leukocyte Esterase Urine Opiates Screen Urine Methadone Screen Ur Barbiturates Screen Ur Phencyclidine Scrn Ur Amphetamines Screen U Benzodiazepines Scrn U Oth Cocaine Metabols U Cannabinoids Screen Attending/Attestation - Attestation I have personally seen and examined this patient.: Yes I have fully participated in the care of the patient.: Yes I have reviewed all pertinent clinical information: Yes Notes (Text): 09/28/17 42 year old female with past medical history of daibetes, hypertension, asthma and recent STEMI s/p stent presents with complaint of chest pain and shortness of breath. Troponin is 1.6 (downtrending). PBNP elevated at 5420. CXR shows mild pulmonary venous congestion. CT chest was negative for PE; shows bilateral posterior pleural effusions. Echocardiogram done today shows EF 30-35 %, moderate to severe MR, moderate to severely reduced LV systolic function with apical, septal and anterior akinesis. Continue with aspirin, plavix, metoprolol, lisinopril and statin. Continue with iv lasix. Cardiology evaluation was appreciated. EP evaluation was also requested. Nixon Olmedo MD Hospitalist.
[2017-09-28] MEDS: Albuterol-Ipratrop 3 mg / 0.5 (3 ml) UD IH PRN (20:20)
[2017-09-28 21:30] LABS: TROPONIN I 1.29 ng/mL
--- NOTE | 2017-09-29 00:38 | CON ---
Copied To: Keith Lopez MD Attending MD: Keith Lopez MD. DATE: 09/28/2017 CARDIOLOGY CONSULT REASON FOR CONSULTATION: Shortness of breath and chest discomfort. HISTORY OF PRESENT ILLNESS: The patient is a 42-year-old female, who was admitted a week earlier on 09/19/[address]-elevation myocardial infarction, was found to have total occlusion of the proximal LAD, underwent stenting to the proximal and mid LAD with drug-eluting stent and ejection fraction at that time was estimated between 25% and 30%. The patient has been doing okay at home and is compliant with her aspirin and Plavix. She presented because of shortness of breath and chest tightness. The patient denies any associated diaphoresis, dizziness or syncope. Later on after evaluated the patient, I was informed that the patient on telemetry had a short run of nonsustained ventricular tachycardia. SOCIAL HISTORY: Nonsmoker, nondrinker. PAST MEDICAL HISTORY: Burns's palsy. MEDICATIONS: Albuterol inhaler every 6 hours p.r.n., aspirin 81 mg once a day, subcutaneous heparin 5000 units every 8 hours, Lasix 40 mg intravenous twice a day, Lipitor 20 mg once a day, Lopressor 50 mg twice a day, Plavix 75 mg once a day, Zestril 5 mg once a day. REVIEW OF SYSTEMS: No fever or chills. No nausea or vomiting. PHYSICAL EXAMINATION: GENERAL: The patient is a middle-aged female who does not appear to be in acute distress. VITAL SIGNS: Blood pressure 125/80, heart rate 115, respirations 17, temperature 97.9. HEENT: Normocephalic. NECK: No JVD. CHEST: Minimal rhonchi. HEART: S1 and S2 regular. ABDOMEN: Soft. EXTREMITIES: No edema. Echocardiography study performed today revealed moderate to severely reduced left ventricular systolic function with apical septal and anterior hypokinesis. Overall ejection fraction estimated in the range of 30-35% with [id number] mitral insufficiency and mild tricuspid insufficiency. Chest CT angio revealed no evidence of pulmonary embolism, bilateral pleural effusion. Chest x-ray revealed borderline cardiomegaly with [id number] congestive heart failure. EKG revealed sinus rhythm with recent anterior wall myocardial infarction. LABORATORY DATA: Today's SMA-7 is within normal limits except for glucose of 194. Troponin is 1.6. ProBNP 5140. Today's hemoglobin and hematocrit 9.6 and 30.3, white count 11.2, platelet count 496,000. D-dimer is not elevated. Urine drug screen is negative. ASSESSMENT: 1. Chest pain, rule out post infarction angina, rule out pericarditis. 2. Ischemic cardiomyopathy with florid congestive heart failure. 3. Uncontrolled diabetes mellitus. 4. Recent coronary stenting a week ago to the proximal and mid left anterior descending for thrombotic total occlusion of the entire proximal and mid left anterior descending segment. 5. Nonsustained ventricular tachycardia. RECOMMENDATIONS: Continue current aspirin 81 mg once a day, Plavix 75 mg once a day, Lasix at 40 mg intravenously twice a day, Lopressor at 50 mg twice a day, Zestril at 5 mg once a day. Discontinue subcutaneous heparin and start therapeutic subcutaneous Lovenox at 60 mg twice a day. I would request electrophysiology evaluation for possible ICD placement in the future and possibly external vest placement for now. Keith Lopez MD
[2017-09-29] MEDS: Enoxaparin 80 mg Syringe SC SCH ×2 (05:27→17:15)
[2017-09-29] MEDS ORDERED: Enoxaparin 60 mg Syringe SC SCH ×2 (06:00)
[2017-09-29 07:09] LABS: BASO # 0.06 K/mm3 (0.0-2.0); BASO % 0.6 % (0.0-3.0); EOS # 0.3 (0.0-0.7); EOS % 2.7 % (1.5-5.0); GRAN # 5.35 (1.4-6.5); HEMOGLOBIN 9.8 g/dL (12.0-16.0); LYMPH # 3.3 (1.2-3.4); LYMPH % 34.4 % (22.0-35.0); MEAN CELL VOLUME 74.8 fl (80.0-105.0); MEAN CORPUSCULAR HEMOGLOBIN 23.5 pg (25.0-35.0); MEAN CORPUSCULAR HGB CONC 31.4 g/dl (31.0-37.0); MONO # 0.7 (0.1-0.6); MONO % 7.3 % (1.0-6.0); RBC 4.17 10^6/uL (3.5-6.1); RED CELL DISTRIBUTION WIDTH 16.6 % (11.5-14.5); WHITE BLOOD COUNT 9.7 10^3/ul (4.5-11.0)
[2017-09-29 07:33] LABS: TROPONIN I 1.08 ng/mL
[2017-09-29 07:39] LABS: ALB/GLOB RATIO 1.1 (1.1-1.8); ALBUMIN 3.5 g/dL (3.0-4.8); ALT/SGPT 22 U/L (7-56); AST/SGOT 26 U/L (14-36); BLOOD UREA NITROGEN 10 mg/dL (7-21); CALCIUM 8.6 mg/dL (8.4-10.5); GFR AFRICAN-AMERICAN > 60; GFR NON-AFRICAN AMERICAN > 60
[2017-09-29] MEDS: Albuterol-Ipratrop 3 mg / 0.5 (3 ml) UD IH PRN ×2 (07:49→23:05)
[2017-09-29] MEDS: Insulin Lispro (humaLOG) LOW Coverage SC SCH ×4 (08:07→22:35)
[2017-09-29] MEDS: Potassium Chloride 20 mEq ER Tab PO SCH (08:07)
--- NOTE | 2017-09-29 08:38 | CP.PCM.PN ---
<Tomas Treviño - Last Filed: 09/29/17 15:52> Subjective - Date & Time of Evaluation Date of Evaluation: 09/29/17 Time of Evaluation: 08:00 - Subjective Subjective: Tomas Treviño PGY-1 Progress Note for Hospitalist Service Patient seen and evaluated at bedside. Reports much improvement breathing and frequent urination. Denies any acute events overnight, including CP, abdominal pain, leg swelling, numbness, tingling. Nursing reports 6 beats of asymptomatic v-tach yesterday and nursing reports that cardiology was notified at that time. Objective - Vital Signs/Intake and Output Vital Signs (last 24 hours): Temp Pulse Resp BP Pulse Ox 98.3 F 87 20 118/86 97 09/29/17 06:00 09/29/17 06:00 09/29/17 06:00 09/29/17 08:07 09/29/17 06:00 Intake and Output: 09/29/17 09/29/17 06:59 18:59 Intake Total 200 Output Total 0 Balance 200 - Medications Medications: Current Medications Albuterol/Ipratropium (Duoneb 3 Mg/0.5 Mg (3 Ml) Ud) 3 ml IH [id number] PRN PRN Reason: Shortness of Breath Last Admin: 09/29/17 07:49 Dose: 3 ml Aspirin (Ecotrin) 81 mg PO DAILY [facility] Last Admin: 09/28/17 12:28 Dose: Not Given Atorvastatin Calcium (Lipitor) 20 mg PO DIN [facility] Last Admin: 09/28/17 17:07 Dose: 20 mg Clopidogrel Bisulfate (Plavix) 75 mg PO DAILY [facility] Last Admin: 09/28/17 12:35 Dose: 75 mg Enoxaparin Sodium (Lovenox) 70 mg SC 0600,1800 [facility] PRN Reason: Protocol Last Admin: 09/29/17 05:27 Dose: 70 mg Furosemide (Lasix) 40 mg IVP 0800,2000 [facility] Last Admin: 09/29/17 08:07 Dose: 40 mg Insulin Human Lispro (Humalog Low) 0 units SC ACHS [facility] PRN Reason: Protocol Last Admin: 09/29/17 08:07 Dose: 1 unit Lisinopril (Zestril) 5 mg PO DAILY [facility] Last Admin: 09/28/17 13:17 Dose: 5 mg Magnesium Chloride (Slow-Mag) 64 mg PO DAILY [facility] Last Admin: 09/28/17 17:07 Dose: 64 mg Metoprolol Tartrate (Lopressor) 50 mg PO BID [facility] Last Admin: 09/28/17 17:43 Dose: 50 mg Pantoprazole Sodium (Protonix Ec Tab) 40 mg PO DAILY [facility] Last Admin: 09/28/17 12:35 Dose: 40 mg Potassium Chloride (K-Dur 20 Meq Er Tab) 20 meq PO BRK [facility] Last Admin: 09/29/17 08:07 Dose: 20 meq - Labs Labs: 09/29/17 06:30 09/29/17 06:30 Physical Exam - Constitutional Appears: Well, Non-toxic, No Acute Distress - Head Exam Head Exam: ATRAUMATIC, NORMAL INSPECTION, NORMOCEPHALIC - Eye Exam Eye Exam: EOMI, Normal appearance Pupil Exam: PERRL - ENT Exam ENT Exam: Mucous Membranes Moist - Neck Exam Neck exam: Positive for: Normal Inspection - Respiratory Exam Respiratory Exam: Decreased Breath Sounds. absent: Rales, Chest Wall Tenderness , Rhonchi, Wheezes, Respiratory Distress Additional comments: mild in bilateral lower lobes - Cardiovascular Exam Cardiovascular Exam: Tachycardia, RRR, +S1, +S2. absent: Rubs - GI/Abdominal Exam GI & Abdominal Exam: Normal Bowel Sounds, Soft. absent: Organomegaly, Tenderness - Extremities Exam Extremities exam: Positive for: pedal pulses present. Negative for: pedal edema Additional comments: ecchymoses on L forearm up to elbow - Neurological Exam Neurological exam: Alert, Altered, Oriented x3 - Psychiatric Exam Psychiatric exam: Normal Affect, Normal Mood - Skin Skin Exam: Dry, Intact, Normal Color, Warm Assessment and Plan - Assessment and Plan (Free Text) Assessment: Assessment: 42 year old female with a past medical history significant for NIDDM2, HTN, mild intermittent asthma and Burns's Palsy who presented for chest pain and shortness of breath. Patient's breathing status has improved. Plan: 1. Chest Pain r/o ACS vs Danis's Syndrome vs HFrEF exacerbation - EKG showed old anterolateral infarct - Trops trending down x3 - Repeat echo: EF of 30-35%, moderate to severe MR, moderate to severely reduced LV systolic function with apical, septal, and anterior akinesis - Chest CT shows bilateral pleural effusion - Continue ASA and Plavix - Lasix 40 IV BID; Added 20 mEq KCl PO - c/w Metoprolol 50 PO BID, Lisinopril 5 PO - Cardiology consulted Dr. Lopez - F/u electrophysiology consult Dr. Martínez for possible AICD vs vest placement - f/u AM labs 2. History of NIDDM2 - ISS-Low and Accuchecks ACHS 3. History of Asthma - Duonebs PRN Diet: Heart Healthy/Moderate Carbohydrate Consistent GI Prophylaxis: Protonix 40 DVT Prophylaxis: Lovenox 70 q12 SC Patient seen, case reviewed, and plan discussed with Dr. Olmedo. Tomas Treviño, PGY-1 <Nixon Olmedo - Last Filed: 09/29/17 16:36> Objective - Vital Signs/Intake and Output Vital Signs (last 24 hours): Temp Pulse Resp BP Pulse Ox 98.2 F 89 20 109/72 97 09/29/17 12:00 09/29/17 14:00 09/29/17 12:00 09/29/17 12:00 09/29/17 06:00 - Medications Medications: Current Medications Albuterol/Ipratropium (Duoneb 3 Mg/0.5 Mg (3 Ml) Ud) 3 ml IH [id number] PRN PRN Reason: Shortness of Breath Last Admin: 09/29/17 07:49 Dose: 3 ml Aspirin (Ecotrin) 81 mg PO DAILY [facility] Last Admin: 09/29/17 09:57 Dose: 81 mg Atorvastatin Calcium (Lipitor) 20 mg PO DIN [facility] Last Admin: 09/28/17 17:07 Dose: 20 mg Clopidogrel Bisulfate (Plavix) 75 mg PO DAILY [facility] Last Admin: 09/29/17 09:57 Dose: 75 mg Enoxaparin Sodium (Lovenox) 70 mg SC 0600,1800 [facility] PRN Reason: Protocol Last Admin: 09/29/17 05:27 Dose: 70 mg Furosemide (Lasix) 40 mg IVP 0800,2000 [facility] Last Admin: 09/29/17 08:07 Dose: 40 mg Insulin Human Lispro (Humalog Low) 0 units SC ACHS [facility] PRN Reason: Protocol Last Admin: 09/29/17 12:12 Dose: 3 unit Lisinopril (Zestril) 5 mg PO DAILY [facility] Last Admin: 09/29/17 09:57 Dose: 5 mg Magnesium Chloride (Slow-Mag) 64 mg PO DAILY [facility] Last Admin: 09/29/17 09:56 Dose: 64 mg Metoprolol Tartrate (Lopressor) 50 mg PO BID [facility] Last Admin: 09/29/17 09:56 Dose: 50 mg Pantoprazole Sodium (Protonix Ec Tab) 40 mg PO DAILY [facility] Last Admin: 09/29/17 09:56 Dose: 40 mg Potassium Chloride (K-Dur 20 Meq Er Tab) 20 meq PO BRK [facility] Last Admin: 09/29/17 08:07 Dose: 20 meq Attending/Attestation - Attestation I have personally seen and examined this patient.: Yes I have fully participated in the care of the patient.: Yes I have reviewed all pertinent clinical information, including history, physical exam and plan: Yes Notes (Text): 09/29/17 16:35 42 year old female with past medical history of daibetes, hypertension, asthma and recent STEMI s/p stent presented with complaint of chest pain and shortness of breath. PBNP was elevated at 5420. CXR showed mild pulmonary venous congestion. CT chest was negative for PE; showed bilateral posterior pleural effusions. Echocardiogram showed EF 30-35%, moderate to severe MR, moderate to severely reduced LV systolic function with apical, septal and anterior akinesis. Continue with aspirin, plavix, metoprolol, lisinopril and statin. Continue with iv lasix. Continue with anticoagulation as per cardiology. Her symptoms have improved. Her troponin has been downtrending since her last admission. Cardiology is following and requested for EP evaluation. Nixon Olmedo MD Hospitalist.
[2017-09-29] MEDS: Pantoprazole 40 mg EC Tab PO SCH (09:56)
[2017-09-29] MEDS: Magnesium Chloride 64 mg ER Tab PO SCH (09:56)
--- NOTE | 2017-09-29 13:42 | PN ---
Copied To: Keith Lopez MD Attending MD: Keith Lopez MD DATE: 09/29/2017 SUBJECTIVE: The patient denies chest pain. Her shortness of breath has improved. PHYSICAL EXAMINATION: VITAL SIGNS: Blood pressure 118/86, heart rate 131, temperature 98.3, respirations 20. HEENT: Normocephalic. CHEST: Clear. HEART: Sounds are regular. EXTREMITIES: No edema. LABORATORY DATA: Today's SMA-7 is within normal limit except for glucose of 195. Today's troponin is 1.08, declining trend. Today's hemoglobin and hematocrit 9.8 and 31.2, white count 9.7, platelet count 507,000. Echocardiographic study done yesterday revealed [id number] reduced right ventricular systolic function with apical septal and anterior hypokinesis. Overall ejection fraction estimated in the range of 30-35%, ywyzayfu-ea-[id number] mitral insufficiency. ASSESSMENT: 1. Status post acute ST elevation anterior infarct, 09/19/2017, with successful percutaneous coronary intervention to the proximal and mid left anterior descending artery with drug-eluting stent. 2. Ischemic cardiomyopathy. 3. Diabetes mellitus. 4. Nonsustained ventricular tachycardia. RECOMMENDATIONS: aspirin 81 mg once a day, Lasix 40 mg intravenously twice a day, K-Dur 20 mEq once a day, Lipitor 20 mg once a day, Lopressor 50 mg twice a day, subcutaneous Lovenox at 70 mg twice a day, Plavix 75 mg once a day, Slow-Mag at 64 mg once a day, Zestril 5 mg once a day. The patient will have Electrophysiology evaluation. Keith Lopez MD
--- NOTE | 2017-09-30 02:52 | CON ---
Copied To: Neno Martínez MD Attending MD: Neno Martínez MD DATE: 09/29/2017 INPATIENT ELECTROPHYSIOLOGY CONSULTATION REASON FOR EVALUATION: 1. Ischemic cardiomyopathy, ejection fraction 30% to 35%. 2. Systolic heart failure. 3. Coronary artery disease, atherosclerosis heart disease, status post myocardial infarction, and primary intervention. 4. Diabetes. HISTORY OF PRESENT ILLNESS: Ms. Castro is a 42-year-old female from [place] with past medical history significant for diabetes, hypertension, intermittent asthma, Burns palsy left face, who presented to [facility] with worsening shortness of breath. Of note, the patient had presented 10 days earlier with stuttering course of crescendo chest pain, ultimately found to have myocardial infarction requiring intervention to proximal LAD where she required 2 drug-eluting stents. Distal lesion was also seen and treated with PTCA. The patient has been treated medically for decompensated heart failure, does appear to be clinically better, medical therapies being optimized, I had been asked to see her in regards to findings of ischemic cardiomyopathy with low ejection fraction and to assess her for her candidacy for an implantable defibrillator for primary prevention of sudden cardiac . PAST MEDICAL HISTORY: Significant for as mentioned previously, non-insulin dependent diabetes, hypertension, intermittent asthma, ectopic pregnancies, ischemic cardiomyopathy, status post myocardial infarction. PAST SURGICAL HISTORY: Significant for tubal ligation, ectopic approximately 15 years ago, she has had 3 uncomplicated vaginal deliveries and has adult grown children. FAMILY HISTORY: Significant for scleroderma in her mother. Patient's father did have a CVA at the age of 55. SOCIAL HISTORY: Negative for tobacco, EtOH or drug abuse. The patient lives in [place], is visiting her family in [place] and her friend here in [place]. She has as mentioned previously, 3 adult children. 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 ALLERGIES: NO KNOWN DRUG ALLERGIES. MEDICATIONS: At the time of admission include enalapril, metformin and albuterol inhaler. REVIEW OF SYSTEMS: The aforementioned shortness of breath. Denies any recurrence of chest pain, dizziness, lightheadedness, syncope or presyncope. She denies headache, dizziness, visual disturbances, neck related complaints. Denies any coughs, wheezes or sputum production. Abdomen is soft, nontender, nondistended. Positive bowel sounds. Extremities, no cyanosis, clubbing, or edema. PHYSICAL EXAMINATION: VITAL SIGNS: Temperature is 98.2, heart rates are elevated in the 130s, blood pressure is 118/86, respiratory rate of 20. GENERAL: She is a well-developed, well-nourished [place] female, in no acute distress, able to speak in complete sentences. HEENT: Head is normocephalic and atraumatic. There is no jaja facial asymmetry. Mucous membranes appear moist. NECK: Supple. No jugular venous distention. No carotid bruits. CHEST: Clear to auscultation bilaterally. CARDIOVASCULAR: Regular rate and rhythm. S1 and S2. No S3 or S4. ABDOMEN: Soft, nontender, nondistended. Positive bowel sounds. EXTREMITIES: No cyanosis, no clubbing, or no edema. LABORATORY DATA: On review, patient has a white count of 9.1, H and H 9.8 and 31.4, platelets are 507. Sodium is 139, potassium is 4, BUN and creatinine is 10 and 0.8; glucose is 165, but it has trended up to 250 mm/dL. Calcium is 8.6. ALT and AST is 26 and 12 respectively. Alk phos is 109. Troponin initially was 1.28, now it is trending down to 1.08. ALT and AST is within normal limits. CURRENT MEDICATIONS: Include aspirin 81 mg p.o. daily, atorvastatin 20 mg p.o. at bedtime, clopidogrel 75 mg p.o. daily, enoxaparin 70 mg subcutaneously b.i.d., furosemide 40 mg IV b.i.d., Zestril or lisinopril 5 mg p.o. daily, magnesium oxide 320 mg p.o. daily, metoprolol tartrate 50 mg p.o. b.i.d., Protonix 40 mg p.o. daily and potassium 20 mEq p.o. daily. Echocardiogram done on 09/28/2017 shows moderately dilated left atrium, moderate to severely reduced ejection fraction, with apical septal and anterior akinesis, ejection fraction is 30% to 35%, there is [id number] MR. EKG which was done on 09/28/2017 shows sinus tachycardia at 108 beats per minute, normal P-wave morphology, MN interval does appear to be somewhat 130 milliseconds, there is low voltage QRS complexes across the precordium, and there is evidence of anteroseptal myocardial infarction with Q-waves in the anterior leads with nonspecific ST-T wave changes. ASSESSMENT AND PLAN: 1. Ischemic cardiomyopathy with evidence of myocardial scar resulting in an ejection fraction of 30% to 35%. The patient would be at risks for sudden cardiac given the low ejection fraction and ischemic cardiomyopathy. The patient did undergo interventions on 09/17/2017, single vessel coronary artery disease was documented at that time with low ejection fraction. The patient underwent percutaneous transluminal coronary angioplasty with drug-eluting stents to the proximal left anterior descending artery and balloon angioplasty of the distal left anterior descending artery. At this point, the patient would be a candidate for defibrillator 40 days post intervention. At that point, the patient would be a candidate for a defibrillator; prior to that, the patient may derive some benefit with a LifeVest for prevention of sudden cardiac as a result of cardiac arrhythmia. The case has been discussed in great detail with the patient's as well as the patient herself. I have contacted the LifeVest sales representative printing supplies to see if any arrangements can be made while the patient is here, if their plans were to pursue further medical care here. She is strongly advised to continue medical therapy. I discussed the rationale for a defibrillator as well. At this point, the patient's plans are unclear, being that she is here on visiting status. We will continue to optimize medical therapy for coronary artery disease. 40 days intervention for being able to offer her and plan about defibrillator. 2. Systolic heart failure. The patient is undergoing intravenous diuresis with optimized beta blockade, to try to maintain a low resting heart rate and adequate blood pressure. Further management as per Dr. Lopez. 3. Coronary artery disease, atherosclerotic heart disease, history of anteroseptal myocardial infarction status post intervention with drug-eluting stent in 09/17/2017. Again, we will continue maximized medical therapy. 4. Diabetes, which should be controlled carefully. 5. Moderate mitral regurgitation for which the patient will be followed serially. Thank you for allowing me to participate in the care of your patient. Please do not hesitate to call if you have any questions in regards to her care. Neno Martínez MD
[2017-09-30] MEDS: Enoxaparin 80 mg Syringe SC SCH ×2 (05:10→17:56)
[2017-09-30 06:58] LABS: BASO # 0.08 K/mm3 (0.0-2.0); BASO % 0.8 % (0.0-3.0); EOS # 0.3 (0.0-0.7); EOS % 2.9 % (1.5-5.0); GRAN # 5.16 (1.4-6.5); GRAN % 51.7 % (50.0-68.0); HEMOGLOBIN 10.3 g/dL (12.0-16.0); LYMPH # 3.5 (1.2-3.4); LYMPH % 35.5 % (22.0-35.0); MEAN CELL VOLUME 74.4 fl (80.0-105.0); MEAN CORPUSCULAR HEMOGLOBIN 23.7 pg (25.0-35.0); MEAN CORPUSCULAR HGB CONC 31.9 g/dl (31.0-37.0); MEAN PLATELET VOLUME 9.6 fl (7.0-11.0); MONO # 0.9 (0.1-0.6); MONO % 9.1 % (1.0-6.0); RBC 4.34 10^6/uL (3.5-6.1); RED CELL DISTRIBUTION WIDTH 16.2 % (11.5-14.5)
[2017-09-30 07:24] LABS: ALB/GLOB RATIO 1.1 (1.1-1.8); ALBUMIN 3.7 g/dL (3.0-4.8); ALT/SGPT 32 U/L (7-56); AST/SGOT 24 U/L (14-36); BLOOD UREA NITROGEN 15 mg/dL (7-21); CALCIUM 8.7 mg/dL (8.4-10.5); GFR AFRICAN-AMERICAN > 60; GFR NON-AFRICAN AMERICAN > 60
[2017-09-30] MEDS: Potassium Chloride 20 mEq ER Tab PO SCH (08:55)
[2017-09-30] MEDS: Insulin Lispro (humaLOG) LOW Coverage SC SCH ×4 (08:57→22:01)
[2017-09-30] MEDS: Pantoprazole 40 mg EC Tab PO SCH (09:41)
[2017-09-30] MEDS: Magnesium Chloride 64 mg ER Tab PO SCH (09:41)
--- NOTE | 2017-09-30 14:27 | PN ---
DATE: 09/30/2017 SUBJECTIVE: The patient denies any chest pain. Shortness of breath has improved. PHYSICAL EXAMINATION: VITAL SIGNS: Blood pressure 106/80, heart rate 87, temperature 98.2, respirations 18. HEENT: Normocephalic. CHEST: Clear. HEART: S1 and S2 regular. EXTREMITIES: Trace leg edema. LABORATORY DATA: Today's hemoglobin and hematocrit are 10.3 and 32.3, white count 10, platelet count 512,000. Today's SMA-7 is within normal limit except for glucose of 109. ASSESSMENT: 1. Status post percutaneous coronary intervention, total occlusion of the proximal left anterior descending artery. 2. Ischemic cardiomyopathy. 3. Nonsustained ventricular tachycardia. 4. Uncontrolled diabetes mellitus. RECOMMENDATIONS: Continue current aspirin, K-Dur, IV Lasix, Lipitor, Lopressor, therapeutic subcutaneous ____ Lovenox and Plavix. The patient was evaluated with Dr. Martínez and the plan is to have a LifeVest placed after arranging that with the company territory service representative and in 40 days post [place], an ICD placement would be considered if ejection fraction remains 35% or below. Keith Lopez MD
--- NOTE | 2017-09-30 14:46 | CP.PCM.PN ---
<Tomas Treviño - Last Filed: 09/30/17 14:39> Subjective - Date & Time of Evaluation Date of Evaluation: 09/30/17 Time of Evaluation: 07:45 - Subjective Subjective: Tomas Treviño PGY-1 Progress Note for Hospitalist Service Patient seen and evaluated at bedside. Patient reports no acute events overnight. Patient reports some sinus congestion, and stuffiness but no facial pain or blurry vision. Patient denies chest pain, palpitations, shortness of breath, leg swelling, and headaches. Patient reports improvement today but did not sleep well because room was stuffy. Objective - Vital Signs/Intake and Output Vital Signs (last 24 hours): Temp Pulse Resp BP Pulse Ox 98.4 F 88 18 108/73 98 09/30/17 12:00 09/30/17 14:00 09/30/17 12:00 09/30/17 12:00 09/30/17 06:00 Intake and Output: 09/30/17 09/30/17 06:59 18:59 Intake Total 240 Balance 240 - Medications Medications: Current Medications Albuterol/Ipratropium (Duoneb 3 Mg/0.5 Mg (3 Ml) Ud) 3 ml IH [id number] PRN PRN Reason: Shortness of Breath Last Admin: 09/29/17 23:05 Dose: 3 ml Aspirin (Ecotrin) 81 mg PO DAILY [facility] Last Admin: 09/30/17 09:41 Dose: 81 mg Atorvastatin Calcium (Lipitor) 20 mg PO DIN [facility] Last Admin: 09/29/17 17:15 Dose: 20 mg Clopidogrel Bisulfate (Plavix) 75 mg PO DAILY [facility] Last Admin: 09/30/17 09:42 Dose: 75 mg Enoxaparin Sodium (Lovenox) 70 mg SC 0600,1800 [facility] PR[facility] Reason: Protocol Last Admin: 09/30/17 05:10 Dose: 70 mg Furosemide (Lasix) 40 mg IVP 0800,2000 [facility] Last Admin: 09/30/17 08:55 Dose: 40 mg Insulin Human Lispro (Humalog Low) 0 units SC ACHS [facility] PRN Reason: Protocol Last Admin: 09/30/17 12:53 Dose: 2 unit Lisinopril (Zestril) 5 mg PO DAILY [facility] Last Admin: 09/30/17 09:41 Dose: 5 mg Magnesium Chloride (Slow-Mag) 64 mg PO DAILY [facility] Last Admin: 09/30/17 09:41 Dose: 64 mg Metoprolol Tartrate (Lopressor) 50 mg PO BID [facility] Last Admin: 09/30/17 09:42 Dose: 50 mg Pantoprazole Sodium (Protonix Ec Tab) 40 mg PO DAILY [facility] Last Admin: 09/30/17 09:41 Dose: 40 mg Potassium Chloride (K-Dur 20 Meq Er Tab) 20 meq PO BRK [facility] Last Admin: 09/30/17 08:55 Dose: 20 meq - Labs Labs: 09/30/17 05:45 09/30/17 05:45 Physical Exam - Constitutional Appears: Well, Non-toxic, No Acute Distress - Head Exam Head Exam: ATRAUMATIC, NORMAL INSPECTION, NORMOCEPHALIC - Eye Exam Eye Exam: EOMI, Normal appearance Pupil Exam: PERRL - ENT Exam ENT Exam: Mucous Membranes Moist - Neck Exam Neck exam: Positive for: Normal Inspection - Respiratory Exam Respiratory Exam: Decreased Breath Sounds. absent: Rales, Chest Wall Tenderness , Rhonchi, Wheezes, Respiratory Distress - Cardiovascular Exam Cardiovascular Exam: Tachycardia, RRR, +S1, +S2. absent: Rubs - GI/Abdominal Exam GI & Abdominal Exam: Normal Bowel Sounds, Soft. absent: Organomegaly, Tenderness - Extremities Exam Extremities exam: Positive for: pedal pulses present. Negative for: pedal edema Additional comments: improved ecchymoses on L forearm up to elbow - Neurological Exam Neurological exam: Alert, Altered, Oriented x3 - Psychiatric Exam Psychiatric exam: Normal Affect, Normal Mood - Skin Skin Exam: Dry, Intact, Normal Color, Warm Assessment and Plan - Assessment and Plan (Free Text) Assessment: Assessment: 42 year old female with a past medical history significant for NIDDM2, HTN, mild intermittent asthma and Burns's Palsy who presented for chest pain and shortness of breath. Patient's breathing status has improved. Plan: 1. Chest Pain 2/2 HFrEF exacerbation vs recent OR - EKG showed old anterolateral infarct - Trops negative x3 - Repeat echo: EF of 30-35%, moderate to severe MR, moderate to severely reduced LV systolic function with apical, septal, and anterior akinesis - Chest CT showed bilateral pleural effusion - Continue ASA and Plavix - blood cx 2/2 neg day 3 - Lasix 40 IV BID, urinating frequently - c/w Metoprolol 50 PO BID, Lisinopril 5 PO - Cardiology consulted Dr. Lopez - appreciate recs regarding possible de- escalating lasix to oral option, adding spironolactone, and anticoagulation - Electrophysiology consult with Dr. Martínez- pending [facility] cardiac lifevest placement in advance of defibrillator placement in 40 days - f/u AM labs 2. History of NIDDM2 - ISS-Low and Accuchecks ACHS 3. History of Asthma - Duonebs PRN Diet: Heart Healthy/Moderate Carbohydrate Consistent GI Prophylaxis: Protonix 40 DVT Prophylaxis: Lovenox 70 q12 SC Disposition: f/u [facility] insurance for lifevest placement. Patient is on travel visa through February 22, 2018 per patient and wishes to receive her medical treatment here before returning to [place]. Patient seen, case reviewed, and plan discussed with Dr. Olmedo. Tomas Treviño, PGY-1 <Nixon Olmedo - Last Filed: 09/30/17 17:17> Objective - Vital Signs/Intake and Output Vital Signs (last 24 hours): Temp Pulse Resp BP Pulse Ox 98.4 F 88 18 108/73 98 09/30/17 12:00 09/30/17 14:00 09/30/17 12:00 09/30/17 12:00 09/30/17 06:00 Intake and Output: 09/30/17 09/30/17 06:59 18:59 Intake Total 240 Balance 240 - Medications Medications: Current Medications Albuterol/Ipratropium (Duoneb 3 Mg/0.5 Mg (3 Ml) Ud) 3 ml IH [id number] PRN PRN Reason: Shortness of Breath Last Admin: 09/29/17 23:05 Dose: 3 ml Aspirin (Ecotrin) 81 mg PO DAILY [facility] Last Admin: 09/30/17 09:41 Dose: 81 mg Atorvastatin Calcium (Lipitor) 20 mg PO DIN [facility] Last Admin: 09/29/17 17:15 Dose: 20 mg Clopidogrel Bisulfate (Plavix) 75 mg PO DAILY [facility] Last Admin: 09/30/17 09:42 Dose: 75 mg Enoxaparin Sodium (Lovenox) 70 mg SC 0600,1800 [facility] PRN Reason: Protocol Last Admin: 09/30/17 05:10 Dose: 70 mg Furosemide (Lasix) 40 mg IVP 799,1999 [facility] Last Admin: 09/30/17 08:55 Dose: 40 mg Insulin Human Lispro (Humalog Low) 0 units SC ACHS [facility] PRN Reason: Protocol Last Admin: 09/30/17 12:53 Dose: 2 unit Lisinopril (Zestril) 5 mg PO DAILY [facility] Last Admin: 09/30/17 09:41 Dose: 5 mg Magnesium Chloride (Slow-Mag) 64 mg PO DAILY [facility] Last Admin: 09/30/17 09:41 Dose: 64 mg Metoprolol Tartrate (Lopressor) 50 mg PO BID [facility] Last Admin: 09/30/17 09:42 Dose: 50 mg Pantoprazole Sodium (Protonix Ec Tab) 40 mg PO DAILY [facility] Last Admin: 09/30/17 09:41 Dose: 40 mg Potassium Chloride (K-Dur 20 Meq Er Tab) 20 meq PO BRK [facility] Last Admin: 09/30/17 08:55 Dose: 20 meq - Labs Labs: 09/30/17 05:45 09/30/17 05:45 Attending/Attestation - Attestation I have personally seen and examined this patient.: Yes I have fully participated in the care of the patient.: Yes I have reviewed all pertinent clinical information, including history, physical exam and plan: Yes Notes (Text): 09/30/17 17:16 42 year old female with past medical history of daibetes, hypertension, asthma and recent STEMI s/p stent presented with complaint of chest pain and shortness of breath. PBNP was elevated at 5420. CXR showed mild pulmonary venous congestion. CT chest was negative for PE; showed bilateral posterior pleural effusions. Echocardiogram showed EF 30-35%, moderate to severe MR, moderate to severely reduced LV systolic function with apical, septal and anterior akinesis. Continue with aspirin, plavix, metoprolol, lisinopril and statin. Continue with iv lasix. Continue with anticoagulation as per cardiology. Her symptoms have improved. EP evaluation was appreciated and currently working on arrangements for life vest. Nixon Olmedo MD Hospitalist.
[2017-09-30 17:38] LABS: PROTHROMBIN TIME 11.4 SECONDS (9.4-12.5)
--- NOTE | 2017-09-30 21:00 | CP.PCM.PN ---
Subjective - Date & Time of Evaluation Date of Evaluation: 09/30/17 Time of Evaluation: 20:54 - Subjective Subjective: Albaro Nicole D.O. PGY-1, Internal Medicine Resident, Gurmeet Esparza Received page from RN that patient was having some throat discomfort. Patient was evaluated at bedside shortly after page. Patient was admitted for chest pain and SOB and has had a recent STEMI s/p stents. Patient states that she has a "pulling" sensation over the left neck area which has been bugging her for a few hours. Minor pain, intermittent, non- radiating, not associated with any movement, no pain on swallowing or actual "sore throat." Palpation over the area does cause reproduction of this "slight pain." Patient does have some lymphadenopathy over this area which is noted compared to the right side over the cervical chain. No erythema or exudate noted on throat. Uvula midline. No cobblestoning. Patient notes that she may have been having this for more than just a few hours "and maybe I caught a cold. " Denied any URI symptoms however or any dental pain or recent dental work. After extended discussion with patient, we will give her some acetaminophen 650mg PO Q6H PRN pain -05/08. Patient amenable, verbalized understanding and agreement with aforementioned plan. Discussed with nurse as well who will let us know how if she improves. Will discuss with day team. Patient was seen and examined and case was discussed at length with senior resident Cosmo Garay D.O. PGY-3. Objective - Vital Signs/Intake and Output Vital Signs (last 24 hours): Temp Pulse Resp BP Pulse Ox 99.2 F 83 20 102/74 98 09/30/17 18:00 09/30/17 18:00 09/30/17 18:00 09/30/17 20:18 09/30/17 06:00 - Medications Medications: Current Medications Albuterol/Ipratropium (Duoneb 3 Mg/0.5 Mg (3 Ml) Ud) 3 ml IH [id number] PRN PRN Reason: Shortness of Breath Last Admin: 09/29/17 23:05 Dose: 3 ml Aspirin (Ecotrin) 81 mg PO DAILY [facility] Last Admin: 09/30/17 09:41 Dose: 81 mg Atorvastatin Calcium (Lipitor) 20 mg PO DIN [facility] Last Admin: 08/02/18 17:55 Dose: 20 mg Clopidogrel Bisulfate (Plavix) 75 mg PO DAILY [facility] Last Admin: 09/30/17 09:42 Dose: 75 mg Enoxaparin Sodium (Lovenox) 70 mg SC 0600,1800 [facility] PRN Reason: Protocol Last Admin: 09/30/17 17:56 Dose: 70 mg Furosemide (Lasix) 40 mg IVP 0800,2000 [facility] Last Admin: 09/30/17 20:18 Dose: 40 mg Insulin Human Lispro (Humalog Low) 0 units SC ACHS [facility] PRN Reason: Protocol Last Admin: 09/30/17 17:55 Dose: 2 unit Lisinopril (Zestril) 5 mg PO DAILY [facility] Last Admin: 09/30/17 09:41 Dose: 5 mg Magnesium Chloride (Slow-Mag) 64 mg PO DAILY [facility] Last Admin: 09/30/17 09:41 Dose: 64 mg Metoprolol Tartrate (Lopressor) 50 mg PO BID [facility] Last Admin: 09/30/17 17:55 Dose: 50 mg Pantoprazole Sodium (Protonix Ec Tab) 40 mg PO DAILY [facility] Last Admin: 09/30/17 09:41 Dose: 40 mg Potassium Chloride (K-Dur 20 Meq Er Tab) 20 meq PO BRK [facility] Last Admin: 09/30/17 08:55 Dose: 20 meq Warfarin Sodium (Coumadin) 3 mg PO 1800 [facility] PRN Reason: Protocol Last Admin: 09/30/17 17:55 Dose: 3 mg - Labs Labs: 09/30/17 05:45 09/30/17 05:45 PT 11.4 SECONDS (9.4-12.5) 09/30/17 17:29 INR 1.00 09/30/17 17:29
[2017-10-01] MEDS: Enoxaparin 80 mg Syringe SC SCH (05:17)
[2017-10-01 06:03] VITALS: RESP 18
[2017-10-01 06:34] LABS: BASO # 0.07 K/mm3 (0.0-2.0); BASO % 0.7 % (0.0-3.0); EOS # 0.3 (0.0-0.7); EOS % 3.4 % (1.5-5.0); GRAN # 5.33 (1.4-6.5); GRAN % 52.5 % (50.0-68.0); HEMOGLOBIN 10.9 g/dL (12.0-16.0); LYMPH # 3.5 (1.2-3.4); MEAN CELL VOLUME 75.4 fl (80.0-105.0); MEAN CORPUSCULAR HGB CONC 31.8 g/dl (31.0-37.0); MEAN PLATELET VOLUME 9.7 fl (7.0-11.0); MONO % 9.4 % (1.0-6.0); RBC 4.55 10^6/uL (3.5-6.1); RED CELL DISTRIBUTION WIDTH 16.2 % (11.5-14.5); WHITE BLOOD COUNT 10.1 10^3/ul (4.5-11.0)
[2017-10-01 06:39] LABS: INR 1.03; PROTHROMBIN TIME 11.8 SECONDS (9.4-12.5)
[2017-10-01 07:04] LABS: ALB/GLOB RATIO 1.1 (1.1-1.8); ALT/SGPT 30 U/L (7-56); AST/SGOT 32 U/L (14-36); BLOOD UREA NITROGEN 21 mg/dL (7-21); CALCIUM 9.2 mg/dL (8.4-10.5); GFR AFRICAN-AMERICAN > 60; GFR NON-AFRICAN AMERICAN 50
[2017-10-01] MEDS: Insulin Lispro (humaLOG) LOW Coverage SC SCH ×2 (08:01→11:41)
[2017-10-01] MEDS: Potassium Chloride 20 mEq ER Tab PO SCH (08:02)
[2017-10-01] MEDS: Pantoprazole 40 mg EC Tab PO SCH (10:29)
[2017-10-01] MEDS: Magnesium Chloride 64 mg ER Tab PO SCH (10:29)
--- NOTE | 2017-10-01 10:40 | CARD ---
APPROVED REPORT Date of service: 10/01/2017 EKG Measurement Heart [id number] <Conclusion> Normal sinus rhythm Septal infarct, age undetermined T wave abnormality, consider anterolateral ischemia Abnormal ECG
[2017-10-01 12:58] VITALS: BP 109/68; PULSE 80; TEMP 98; O2SAT 99
--- NOTE | 2017-10-01 13:47 | PN ---
Copied To: Keith Lopez MD Attending MD: Keith Lopez MD DATE: 10/01/2017 SUBJECTIVE: The patient did report left arm pain and numbness. She denies retrosternal chest pain. PHYSICAL EXAMINATION: VITAL SIGNS: Blood pressure 105/76, heart rate 102, temperature 97.6, respirations 18. HEENT: Normocephalic. CHEST: Minimal with rhonchi. HEART: S1 and S2 regular. EXTREMITIES: No edema or calf tenderness. LABORATORY DATA: Today's SMA-7 is within normal limit except for glucose of 209. Today's hemoglobin and hematocrit 10.9 and 34.3. White count 10.1, platelet count 535,000. An EKG done now reveals sinus rhythm with recent anterior wall infarct and lateral T-wave inversion. ASSESSMENT: 1. Status post anterior ST elevation myocardial infarction with stenting to the proximal to mid left anterior descending artery. 2. Ischemic cardiomyopathy. 3. Uncontrolled diabetes mellitus. CONDITIONS: Case was discussed with the medical team. Subcutaneous Lovenox will be discontinued and the patient will be started on Coumadin 3 mg daily. Continue aspirin, Plavix, Lipitor, Lasix and Lopressor therapeutic. I will obtain one more set of troponin now. The patient really had LifeVest placed and was given instruction. Keith Lopez MD
--- NOTE | 2017-10-01 16:19 | CP.PCM.DIS ---
<KamilaTomas - Last Filed: 10/01/17 16:31> Provider - Provider Date of Admission: 09/29/17 12:42 Attending physician: Nixon Olmedo MD Primary care physician: None Consults: Laure - John MOSES - Dr. Martínez Time Spent in preparation of Discharge (in minutes): 45 Hospital Course - Lab Results Lab Results: Most Recent Lab Values WBC 10.1 10^3/ul (4.5-11.0) 10/01/17 05:30 RBC 4.55 10^6/uL (3.5-6.1) 10/01/17 05:30 Hgb 10.9 g/dL (12.0-16.0) L 10/01/17 05:30 Hct 34.3 % (36.0-48.0) L 10/01/17 05:30 MCV 75.4 fl (80.0-105.0) L 10/01/17 05:30 MCH 24.0 pg (25.0-35.0) L 10/01/17 05:30 MCHC 31.8 g/dl (31.0-37.0) 10/01/17 05:30 RDW 16.2 % (11.5-14.5) H 10/01/17 05:30 Plt Count 535 10^3/uL (120.0-450.0) H 10/01/17 05:30 MPV 9.7 fl (7.0-11.0) 10/01/17 05:30 Gran % 52.5 % (50.0-68.0) 10/01/17 05:30 Lymph % (Auto) 34.0 % (22.0-35.0) 10/01/17 05:30 Karnes % (Auto) 9.4 % (1.0-6.0) H 10/01/17 05:30 Eos % (Auto) 3.4 % (1.5-5.0) 10/01/17 05:30 Baso % (Auto) 0.7 % (0.0-3.0) 10/01/17 05:30 Gran # 5.33 (1.4-6.5) 10/01/17 05:30 Lymph # (Auto) 3.5 (1.2-3.4) H 10/01/17 05:30 Karnes # (Auto) 1.0 (0.1-0.6) H 10/01/17 05:30 Eos # (Auto) 0.3 (0.0-0.7) 10/01/17 05:30 Baso # (Auto) 0.07 K/mm3 (0.0-2.0) 10/01/17 05:30 PT 11.8 SECONDS (9.4-12.5) 10/01/17 05:30 INR 1.03 10/01/17 05:30 APTT 31.0 Seconds (25.1-36.5) 10/01/17 05:30 D-Dimer, Quantitative 915 ng/mL 09/28/17 07:30 pO2 26 mm/Hg (30-55) L 09/28/17 08:45 VBG pH 7.39 (7.32-7.43) 09/28/17 08:45 VBG pCO2 45.0 (40-60) 09/28/17 08:45 VBG HCO3 27.2 mmol/l (21-28) 09/28/17 08:45 VBG Total CO2 28.6 mmol.L (22-28) H 09/28/17 08:45 VBG O2 Sat (Calc) 50.7 % (40-65) 09/28/17 08:45 VBG Base Excess 1.7 mmol/L (0.0-2.0) 09/28/17 08:45 VBG Potassium 4.6 mmol/L (3.6-5.2) 09/28/17 08:45 Sodium 139.0 mmol/L (132-148) 09/28/17 08:45 Chloride 109.0 mmol/L (98-107) H 09/28/17 08:45 Glucose 201 mg/dl (65-105) H 09/28/17 08:45 Lactate 0.8 mmol/L (0.7-2.1) 09/28/17 08:45 FiO2 21.0 % 09/28/17 08:45 Sodium 138 mmol/L (132-148) 10/01/17 05:30 Potassium 4.2 mmol/L (3.6-5.0) 10/01/17 05:30 Chloride 99 mmol/L (98-107) 10/01/17 05:30 Carbon Dioxide 31 mmol/L (21-33) 10/01/17 05:30 Anion Gap 13 (10-20) 10/01/17 05:30 BUN 21 mg/dL (7-21) 10/01/17 05:30 Creatinine 1.2 mg/dl (0.7-1.2) 10/01/17 05:30 Est GFR ( Amer) > 60 10/01/17 05:30 Est GFR (Non-Af Amer) 50 10/01/17 05:30 POC Glucose (mg/dL) 233 mg/dL (65-110) H 10/01/17 11:08 Random Glucose 209 mg/dL (70-110) H 10/01/17 05:30 Calcium 9.2 mg/dL (8.4-10.5) 10/01/17 05:30 Phosphorus 3.4 mg/dL (2.5-4.5) 09/28/17 07:30 Magnesium 1.8 mg/dL (1.7-2.2) 09/28/17 07:30 Total Bilirubin 0.7 mg/dL (0.2-1.3) 10/01/17 05:30 AST 32 U/L (14-36) 10/01/17 05:30 ALT 30 U/L (7-56) 10/01/17 05:30 Alkaline Phosphatase 106 U/L (38-126) 10/01/17 05:30 Lactate Dehydrogenase 750 U/L (333-699) H 09/29/17 06:30 Total Creatine Kinase 67 U/L (35-230) 09/29/17 06:30 Troponin I 0.65 ng/mL H* D 10/01/17 06:00 NT-Pro-B Natriuret Pep 5240 pg/mL (0-450) H 09/28/17 07:30 Total Protein 7.5 g/dL (5.8-8.3) 10/01/17 05:30 Albumin 4.0 g/dL (3.0-4.8) 10/01/17 05:30 Globulin 3.5 gm/dL 10/01/17 05:30 Albumin/Globulin Ratio 1.1 (1.1-1.8) 10/01/17 05:30 Venous Blood Potassium 4.6 mmol/L (3.6-5.2) 09/28/17 08:45 Urine Color Yellow (YELLOW) 09/28/17 11:05 Urine Appearance Clear (CLEAR) 09/28/17 11:05 Urine pH 6.0 (4.7-8.0) 09/28/17 11:05 Ur Specific Loraine >= 1.030 (1.005-1.035) 09/28/17 11:05 Urine Protein Negative mg/dL (<30 mg/dL) 09/28/17 11:05 Urine Glucose (UA) 100 mg/dL (NEGATIVE) H 09/28/17 11:05 Urine Ketones Negative mg/dL (NEGATIVE) 09/28/17 11:05 Urine Blood Negative (NEGATIVE) 09/28/17 11:05 Urine Nitrate Negative (NEGATIVE) 09/28/17 11:05 Urine Bilirubin Negative (NEGATIVE) 09/28/17 11:05 Urine Urobilinogen 0.2 E.U./dL (<1 E.U./dL) 09/28/17 11:05 Ur Leukocyte Esterase Negative Jose/uL (NEGATIVE) 09/28/17 11:05 Urine Opiates Screen Negative (NEGATIVE) 09/28/17 11:11 Urine Methadone Screen Negative (NEGATIVE) 09/28/17 11:11 Ur Barbiturates Screen Negative (NEGATIVE) 09/28/17 11:11 Ur Phencyclidine Scrn Negative (NEGATIVE) 09/28/17 11:11 Ur Amphetamines Screen Negative (NEGATIVE) 09/28/17 11:11 U Benzodiazepines Scrn Negative (NEGATIVE) 09/28/17 11:11 U Oth Cocaine Metabols Negative (NEGATIVE) 09/28/17 11:11 U Cannabinoids Screen Negative (NEGATIVE) 09/28/17 11:11 - Hospital Course Hospital Course: Tomas Treviño, PGY-1 Discharge Summary for Hospitalist Service This 42 year old female with past medical history of recent STEMI, DM2, HTN, [place] palsy of L face and asthma presented to ED with worsening shortness of breath and chest pain. The patient says that the chest pain was different than the chest pain she previously experienced this month when she was admitted. On previous admission, 2 drug-eluting stents were placed and the patient was started on ASA and plavix. Cardiology was consulted for further management. Pro- BNP was elevated at 5420. Troponins were trended to evaluate for resolution of previous SD. Chest x ray showed mild pulmonary venous congestion. Chest CT was negative for PE and showed bilateral posterior pleural effusions. Blood cultures were negative. Given her cardiac history, echo was ordered and showed EF 30-35%, and moderate to severe MR. Patient was started on Warfarin 3 mg for prophylaxis of arrythmia in the setting of CHF. Dr. Martínez (senior clinical sas programmer) was consulted and recommended her for lifevest for 40 days, at which point if Ejection fraction remains below 35%, patient will be candidate for defibrillator placement at that time. Patient reported non-radiating sore throat and left neck soreness 09/30/17 overnight that was somewhat relieved by Tylenol. Patient described vague congestion and upper respiratory symptoms. Patient noted that the room had been warm earlier in the day and thought that could have contributed to her symptoms. Late this morning, patient reported some vague chest pain, weakness, and radiation down the left arm. EKG was shown to be normal sinus rhythm with T wave changes without acute ST elevations as read by exhibit specialist. Medications at that time were reviewed. Patient had become mildly hypotensive at 91/61, which was believed to be caused by lasix and spironolactone. Medications were altered to Lopressor 12.5 BID and Lasix 40 PO once a day. Follow up troponin had decreased from earlier labs. Orthostatic blood pressures at that time were unremarkable. Patient's symptoms resolved after taking Motrin. Before discharge, patient was found to be hemodynamically stable and denies complaints of chest pain, palpitations, shortness of breath, abdominal pain, leg edema, headaches, numbness down the arm, and blurry vision. The patient was advised to continue with aspirin 81, plavix 75, lasix 40 daily, metformin 500 BID, glipizide 5, metoprolol 12.5 BID, lisinopril 5, warfarin 3 mg , and statin. Spironolactone was not prescribed due to episodes of hypotension. The patient is currently medically stable and is cleared for discharge. Patient was given instructions regarding clinic follow up next week and follow up with Dr. Martínez regarding possible future defibrillator placement. All questions were answered to patient's and patient's spouse satisfaction, and they responded with understanding and comprehension. Patient seen, case reviewed, and plan discussed with Dr. Olmedo. Discharge Exam - Head Exam Head Exam: ATRAUMATIC, NORMAL INSPECTION, NORMOCEPHALIC - Additional Findings Additional findings: Physical Exam - Constitutional Appears: Well, Non-toxic, No Acute Distress - Head Exam Head Exam: ATRAUMATIC, NORMAL INSPECTION, NORMOCEPHALIC - Eye Exam Eye Exam: EOMI, Normal appearance Pupil Exam: PERRL - ENT Exam ENT Exam: Mucous Membranes Moist - Neck Exam Neck exam: Positive for: Normal Inspection. No discharge, irritation, - Respiratory Exam Respiratory Exam: Decreased Breath Sounds. absent: Rales, Chest Wall Tenderness , Rhonchi, Wheezes, Respiratory Distress - Cardiovascular Exam Cardiovascular Exam: Tachycardia, RRR, +S1, +S2. absent: Rubs - GI/Abdominal Exam GI & Abdominal Exam: Normal Bowel Sounds, Soft. absent: Organomegaly, Tenderness - Extremities Exam Extremities exam: Positive for: pedal pulses present. Negative for: pedal edema Additional comments: improved ecchymoses on L forearm up to elbow - Neurological Exam Neurological exam: Alert, Altered, Oriented x3 - Psychiatric Exam Psychiatric exam: Normal Affect, Normal Mood - Skin Skin Exam: Dry, Intact, Normal Color, Warm Discharge Plan - Discharge Medications Prescriptions: Aspirin [Ecotrin] 81 mg PO DAILY #30 tabec Atorvastatin [Lipitor] 20 mg PO DIN #30 tab Clopidogrel [Plavix] 75 mg PO DAILY #30 tab Furosemide [Lasix] 40 mg PO DAILY #30 tab GlipiZIDE [Glucotrol] 5 mg PO ACB 30 Days #30 tab Lisinopril [Zestril] 5 mg PO DAILY #30 tab metFORMIN [glucOPHAGE] 500 mg PO BID 30 Days #60 tab Metoprolol Tartrate [Lopressor] 12.5 mg PO BID #60 tab Warfarin [Coumadin] 3 mg PO 1800 30 Days #30 tab - Follow Up Plan Condition: FAIR Disposition: HOME/ ROUTINE Instructions: Heart Healthy Diet, Shortness of Breath (Dyspnea) (DC), Medicines After a Heart Attack, Shortness of Breath (Dyspnea), Diabetes and Diet , Myocardial Infarction (DC), Myocardial Infarction (GEN), Asthma (DC) Additional Instructions: 1. Patient is to follow up in [facility] primary care clinic with Dr. Shen on WednesdayOctober 08 at 230 pm. [facility] community service representative was in today and discussed ongoing [facility] [place] application. 2. Patient was given contact information for Dr. Martínez and instructed to follow up with Dr. Martínez (cardiac senior clinical sas programmer) in the coming week to set up an appointment regarding her follow up echocardiogram and defibrillator placement in the future. Patient received education from [email or web address] community service representative regarding ongoing care and maintenance. 3. Please take all medications as prescribed. 4. Should you experience reoccurrence or worsening of symptoms, please return to your local emergency department. Referrals: [facility] at [facility] [Outside] Neno Martínez MD [Staff Provider] - <Nixon Olmedo - Last Filed: 10/02/17 08:23> Provider - Provider Date of Admission: 09/29/17 12:42 Attending physician: Nixon Olmedo MD Hospital Course - Lab Results Lab Results: Most Recent Lab Values WBC 10.1 10^3/ul (4.5-11.0) 10/01/17 05:30 RBC 4.55 10^6/uL (3.5-6.1) 10/01/17 05:30 Hgb 10.9 g/dL (12.0-16.0) L 10/01/17 05:30 Hct 34.3 % (36.0-48.0) L 10/01/17 05:30 MCV 75.4 fl (80.0-105.0) L 10/01/17 05:30 MCH 24.0 pg (25.0-35.0) L 10/01/17 05:30 MCHC 31.8 g/dl (31.0-37.0) 10/01/17 05:30 RDW 16.2 % (11.5-14.5) H 10/01/17 05:30 Plt Count 535 10^3/uL (120.0-450.0) H 10/01/17 05:30 MPV 9.7 fl (7.0-11.0) 10/01/17 05:30 Gran % 52.5 % (50.0-68.0) 10/01/17 05:30 Lymph % (Auto) 34.0 % (22.0-35.0) 10/01/17 05:30 Karnes % (Auto) 9.4 % (1.0-6.0) H 10/01/17 05:30 Eos % (Auto) 3.4 % (1.5-5.0) 10/01/17 05:30 Baso % (Auto) 0.7 % (0.0-3.0) 10/01/17 05:30 Gran # 5.33 (1.4-6.5) 10/01/17 05:30 Lymph # (Auto) 3.5 (1.2-3.4) H 10/01/17 05:30 Karnes # (Auto) 1.0 (0.1-0.6) H 10/01/17 05:30 Eos # (Auto) 0.3 (0.0-0.7) 10/01/17 05:30 Baso # (Auto) 0.07 K/mm3 (0.0-2.0) 10/01/17 05:30 PT 11.8 SECONDS (9.4-12.5) 10/01/17 05:30 INR 1.03 10/01/17 05:30 APTT 31.0 Seconds (25.1-36.5) 10/01/17 05:30 D-Dimer, Quantitative 915 ng/mL 09/28/17 07:30 pO2 26 mm/Hg (30-55) L 09/28/17 08:45 VBG pH 7.39 (7.32-7.43) 09/28/17 08:45 VBG pCO2 45.0 (40-60) 09/28/17 08:45 VBG HCO3 27.2 mmol/l (21-28) 09/28/17 08:45 VBG Total CO2 28.6 mmol.L (22-28) H 09/28/17 08:45 VBG O2 Sat (Calc) 50.7 % (40-65) 09/28/17 08:45 VBG Base Excess 1.7 mmol/L (0.0-2.0) 09/28/17 08:45 VBG Potassium 4.6 mmol/L (3.6-5.2) 09/28/17 08:45 Sodium 139.0 mmol/L (132-148) 09/28/17 08:45 Chloride 109.0 mmol/L (98-107) H 09/28/17 08:45 Glucose 201 mg/dl (65-105) H 09/28/17 08:45 Lactate 0.8 mmol/L (0.7-2.1) 09/28/17 08:45 FiO2 21.0 % 09/28/17 08:45 Sodium 138 mmol/L (132-148) 10/01/17 05:30 Potassium 4.2 mmol/L (3.6-5.0) 10/01/17 05:30 Chloride 99 mmol/L (98-107) 10/01/17 05:30 Carbon Dioxide 31 mmol/L (21-33) 10/01/17 05:30 Anion Gap 13 (10-20) 10/01/17 05:30 BUN 21 mg/dL (7-21) 10/01/17 05:30 Creatinine 1.2 mg/dl (0.7-1.2) 10/01/17 05:30 Est GFR ( Amer) > 60 10/01/17 05:30 Est GFR (Non-Af Amer) 50 10/01/17 05:30 POC Glucose (mg/dL) 233 mg/dL (65-110) H 10/01/17 11:08 Random Glucose 209 mg/dL (70-110) H 10/01/17 05:30 Calcium 9.2 mg/dL (8.4-10.5) 10/01/17 05:30 Phosphorus 3.4 mg/dL (2.5-4.5) 09/28/17 07:30 Magnesium 1.8 mg/dL (1.7-2.2) 09/28/17 07:30 Total Bilirubin 0.7 mg/dL (0.2-1.3) 10/01/17 05:30 AST 32 U/L (14-36) 10/01/17 05:30 ALT 30 U/L (7-56) 10/01/17 05:30 Alkaline Phosphatase 106 U/L (38-126) 10/01/17 05:30 Lactate Dehydrogenase 750 U/L (333-699) H 09/29/17 06:30 Total Creatine Kinase 67 U/L (35-230) 09/29/17 06:30 Troponin I 0.65 ng/mL H* D 10/01/17 06:00 NT-Pro-B Natriuret Pep 5240 pg/mL (0-450) H 09/28/17 07:30 Total Protein 7.5 g/dL (5.8-8.3) 10/01/17 05:30 Albumin 4.0 g/dL (3.0-4.8) 10/01/17 05:30 Globulin 3.5 gm/dL 10/01/17 05:30 Albumin/Globulin Ratio 1.1 (1.1-1.8) 10/01/17 05:30 Venous Blood Potassium 4.6 mmol/L (3.6-5.2) 09/28/17 08:45 Urine Color Yellow (YELLOW) 09/28/17 11:05 Urine Appearance Clear (CLEAR) 09/28/17 11:05 Urine pH 6.0 (4.7-8.0) 09/28/17 11:05 Ur Specific Loraine >= 1.030 (1.005-1.035) 09/28/17 11:05 Urine Protein Negative mg/dL (<30 mg/dL) 09/28/17 11:05 Urine Glucose (UA) 100 mg/dL (NEGATIVE) H 09/28/17 11:05 Urine Ketones Negative mg/dL (NEGATIVE) 09/28/17 11:05 Urine Blood Negative (NEGATIVE) 09/28/17 11:05 Urine Nitrate Negative (NEGATIVE) 09/28/17 11:05 Urine Bilirubin Negative (NEGATIVE) 09/28/17 11:05 Urine Urobilinogen 0.2 E.U./dL (<1 E.U./dL) 09/28/17 11:05 Ur Leukocyte Esterase Negative Jose/uL (NEGATIVE) 09/28/17 11:05 Urine Opiates Screen Negative (NEGATIVE) 09/28/17 11:11 Urine Methadone Screen Negative (NEGATIVE) 09/28/17 11:11 Ur Barbiturates Screen Negative (NEGATIVE) 09/28/17 11:11 Ur Phencyclidine Scrn Negative (NEGATIVE) 09/28/17 11:11 Ur Amphetamines Screen Negative (NEGATIVE) 09/28/17 11:11 U Benzodiazepines Scrn Negative (NEGATIVE) 09/28/17 11:11 U Oth Cocaine Metabols Negative (NEGATIVE) 09/28/17 11:11 U Cannabinoids Screen Negative (NEGATIVE) 09/28/17 11:11 Attending/Attestation - Attestation I have personally seen and examined this patient.: Yes I have fully participated in the care of the patient.: Yes I have reviewed all pertinent clinical information, including history, physical exam and plan: Yes Notes (Text): 10/01/17 42 year old female with past medical history of daibetes, hypertension, asthma and recent STEMI s/p stent presented with complaint of chest pain and shortness of breath. PBNP was elevated at 5420. CXR showed mild pulmonary venous congestion. CT chest was negative for PE; showed bilateral posterior pleural effusions. Echocardiogram showed EF 30-35%, moderate to severe MR, moderate to severely reduced LV systolic function with apical, septal and anterior akinesis. Patient was started on lasix and coumadin in addition to her aspirin , plavix, metoprolol, lisinopril and statin. Her troponin has trended down since her previous STEMI. Her symptoms improved. She was seen by EP evaluation and life vest was applied. Patient is discharged home to follow up at [facility] next week. Monitor INR while on coumadin. Follow up with EP. Nixon Olmedo MD Hospitalist.
== END 2017-10-01 18:08 | disposition home or self-care (01) | DRG 127 ==
LOC: ED 06:48 → ERH 10:25 → 2RNO 13:33 → OBSVTOIN 09-29 12:42
PROVIDERS: ADMIT Internal Medicine; ATTEND Internal Medicine
DX: I11.0 Hypertensive heart disease with heart failure (principal); E11.65 Type 2 diabetes mellitus with hyperglycemia; I47.2 Ventricular tachycardia; I25.10 Atherosclerotic heart disease of native coronary artery without angina pectoris; I25.2 Old myocardial infarction; I25.5 Ischemic cardiomyopathy; I25.82 Chronic total occlusion of coronary artery; I34.0 Nonrheumatic mitral (valve) insufficiency; I50.20 Unspecified systolic (congestive) heart failure; J45.20 Mild intermittent asthma, uncomplicated; Z82.3 Family history of stroke; Z95.5 Presence of coronary angioplasty implant and graft; G51.0 Bell's palsy; Z98.51 Tubal ligation status; Z88.8 Allergy status to other drugs, medicaments and biological substances

== ENCOUNTER 2017-10-15 21:39 | Observation (INO) | payer OTHER ==
[2017-10-15 21:43] VITALS: BMI 30.1
--- NOTE | 2017-10-15 22:38 | ED PDOC ---
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 Patient notes she feels pressure in the middle of her chest, relieved with rest. Patient states numbness in extremities. Patient recently saw her PMD on Wednesday, who adjusted her Coumadin dose. Patient denies any syncopal episodes, dizziness, vomiting, fevers, chills, shortness of breath , abdominal pain, nausea, diarrhea, urinary symptoms, headache, or any other complaint. PCP: Dr. Velazquez Time/Duration: Other (past 2 days) Symptom Onset: Sudden Symptom Course: Intermittent Quality: Pressure Severity Level: Moderate Activities at Onset: Rest Context: Exertion, Home Past Medical History - Provider Review Nursing Documentation Reviewed: Yes - Travel History Have you recently traveled outside [place] w/in the past 3 mons?: No - Infectious Disease Hx of Infectious Diseases: None - Cardiac Hx Cardiac Disorders: Yes Hx NC: Yes Hx Hypertension: Yes Other/Comment: cardiac cath x 1 stent. on life vest - Pulmonary Hx Respiratory Disorders: Yes Hx Asthma: Yes - Neurological Hx Neurological Disorder: (burns's palsy) - HEENT Hx HEENT Disorder: No - Renal Hx Renal Disorder: No - Endocrine/Metabolic Hx Endocrine Disorders: Yes Hx Diabetes Mellitus Type 2: Yes - Hematological/Oncological Hx Blood Disorders: No - Integumentary Hx Dermatological Disorder: No - Musculoskeletal/Rheumatological Hx Musculoskeletal Disorders: No Hx Falls: No - Gastrointestinal Hx Gastrointestinal Disorders: No - Genitourinary/Gynecological Hx Genitourinary Disorders: Yes (TUBAL LIGATION,EXTOPIC ) - Psychiatric Hx Psychophysiologic Disorder: No Hx Substance Use: No - Surgical History Hx Coronary Stent: Yes (x2) Hx Tubal Ligation: Yes - Anesthesia Hx Anesthesia: Yes Hx Anesthesia Reactions: No Hx Malignant Hyperthermia: No Family/Social History - Physician Review Nursing Documentation Reviewed: Yes Family/Social History: No Known Family HX Smoking Status: Never Smoked Hx Alcohol Use: No Hx Substance Use: No Allergies/Home Meds Allergies/Adverse Reactions: Allergies nifedipine Allergy (Verified 09/28/17 14:28) ITCHING Review of Systems - Physician Review All systems were reviewed & negative as marked: Yes - Review of Systems Constitutional: Normal Eyes: Normal ENT: Normal Respiratory: SOB. absent: Cough, Wheezing Cardiovascular: Chest Pain (intermittent chest pain for past 2 days), MANN. absent: Normal, Edema Gastrointestinal: absent: Abdominal Pain, Constipation, Diarrhea Genitourinary Female: absent: Dysuria, Frequency, Hematuria Musculoskeletal: Back Pain, Other (numbness in extremities ). absent: Normal Skin: Normal Neurological: absent: Headache, Dizziness, Focal Weakness Endocrine: absent: Polyuria, Polydipsia Hemo/Lymphatic: Normal Psychiatric: Normal Physical Exam Vital Signs Reviewed: Yes Vital Signs Temp Pulse Resp BP Pulse Ox 10/16/17 01:52 99 H 18 94/65 L 100 10/15/17 23:10 98.0 F 98 H 17 100/64 99 Temperature: Afebrile Blood Pressure: Normal Pulse: Tachycardic Respiratory Rate: Normal Appearance: Positive for: Well-Appearing, Comfortable Pain Distress: None Mental Status: Positive for: Alert and Oriented X 3 - Systems Exam Head: Present: Atraumatic, Normocephalic Pupils: Present: PERRL Extroacular Muscles: Present: EOMI Conjunctiva: Present: Normal Mouth: Present: Moist Mucous Membranes Neck: Present: Normal Range of Motion Respiratory/Chest: Present: Clear to Auscultation, Good Air Exchange. No: Respiratory Distress, Accessory Muscle Use Cardiovascular: Present: Normal S1, S2, Peripheal Pulses Present, Tachycardic. No: Murmurs Abdomen: Present: Normal Bowel Sounds. No: Tenderness, Distention, Peritoneal Signs Back: Present: Normal Inspection. No: CVA Tenderness, Midline Tenderness Upper Extremity: Present: Normal Inspection. No: Cyanosis, Edema Lower Extremity: Present: Normal Inspection, Other (No pedal edema ). No: Edema Neurological: Present: GCS=15, CN II-XII Intact, Speech Normal Skin: Present: Warm, Dry, Normal Color. No: Rashes Psychiatric: Present: Alert, Oriented x 3, Normal Insight, Normal Concentration Medical Decision Making ED Course and Treatment: 10/15/17 21:55 Impression: 42 year old female presents to the Emergency department for intermittent mid-sternal chest pain x2 days. Differential Diagnoses Included But is Not Limited to: ACS CHF PE PNA Plan: -- EKG -- Labs -- Chest X-Ray two views (PA/LAT) -- POC Urine Test -- Urinalysis -- Reassess and disposition Prior Visits: Notes and results from previous visits were reviewed. Patient was last seen in the emergency department on 09/28/17 for shortness of breath, worsening since the day prior to arrival. Patient was hospitalized for shortness of breath. Progress Notes: 10/16/17 01:15 EKG: Ordered, reviewed, and independently interpreted the EKG. Rate : 99 BPM Rhythm : NSR Interpretation : Q waves seen in V1 and V2. CXR Ordered, reviewed, and independently interpreted the CXR Impression: No infiltrates or effusions visualised. No PTX. Labs reviewed with elevated BNP. Troponin negative. Slight leukocytosis noted. Discussed case with Dr. Gamal Padron who will be coming to evaluate patient. 10/16/17 03:45 Patient seen and evaluated by Dr. Gmaal Padron who accepts patient for admission. Patient admitted to hospitalist service. - Lab Interpretations Lab Results: 10/15/17 23:03 10/15/17 23:03 Lab Results 10/15/17 23:53: Urine Color Yellow, Urine Appearance Clear, Urine pH 6.0, Ur Specific [place] >= 1.030, Urine Protein Negative, Urine Glucose (UA) >=1000, Urine Ketones Trace H, Urine Blood Negative, Urine Nitrate Negative, Urine Bilirubin Negative, Urine Urobilinogen 0.2, Ur Leukocyte Esterase Negative 10/15/17 23:03: PT 11.9, INR 1.04, APTT 26.7 10/15/17 23:03: WBC 11.9 H, RBC 4.02, Hgb 9.7 L, Hct 30.7 L, MCV 76.4 L, MCH 24.1 L, MCHC 31.6, RDW 16.0 H, Plt Count 366, MPV 10.1, Gran % 57.4, Lymph % ( Auto) 33.8, [place] % (Auto) 6.5 H, Eos % (Auto) 2.0, Baso % (Auto) 0.3, Gran # 6.85 H, Lymph # (Auto) 4.0 H, [place] # (Auto) 0.8 H, Eos # (Auto) 0.2, Baso # ( Auto) 0.04 08/17/18 23:03: Sodium 140, Potassium 3.8, Chloride 101, Carbon Dioxide 27, Anion Gap 16, BUN 17, Creatinine 0.8, Est GFR ( Amer) > 60, Est GFR (Non- Af Amer) > 60, Random Glucose 277 H, Calcium 8.5, Total Bilirubin 0.3, AST 21, ALT 25, Alkaline Phosphatase 118, Troponin I 0.03 D, NT-Pro-B Natriuret Pep 2450 H, Total Protein 6.9, Albumin 3.7, Globulin 3.2, Albumin/Globulin Ratio 1.2 I have reviewed the lab results: Yes - RAD Interpretation Radiology Orders: 10/16/17 00:35 CHEST TWO VIEWS (PA/LAT) [RAD] Stat Lumber Driver: ED Physician - EKG Interpretation Interpreted by ED Physician: Yes Type: 12 lead EKG - Medication Orders Current Medication Orders: Aspirin (Ecotrin) 81 mg PO DAILY [facility] Last Admin: 10/17/17 10:38 Dose: 81 mg Atorvastatin Calcium (Lipitor) 20 mg PO DIN [facility] Last Admin: 10/16/17 17:56 Dose: 20 mg Clopidogrel Bisulfate (Plavix) 75 mg PO DAILY [facility] Last Admin: 10/17/17 10:38 Dose: 75 mg Dextrose (Dextrose 50% Inj) 0 ml IV STAT PRN; Protocol PRN Reason: Hypoglycemia Protocol Ferrous Sulfate (Feosol) 324 mg PO DAILY [facility] Last Admin: 10/17/17 10:38 Dose: 324 mg Furosemide (Lasix) 40 mg PO DAILY [facility] Last Admin: 10/17/17 10:37 Dose: 40 mg MAR Blood Pressure Document 10/17/17 10:37 CD (Rec: 10/17/17 10:38 CD [id number]) Blood Pressure Blood Pressure (100/60-150/90) 110/71 Heparin Sodium (Porcine) (Heparin) 5,000 units SC Q12 [facility] PRN Reason: Protocol Last Admin: 10/17/17 10:37 Dose: 5,000 units MAR aPTT Document 10/17/17 10:37 CD (Rec: 10/17/17 10:37 CD [id number]) aPTT aPTT (secs) 27.7 Subcutaneous Administrations Document 10/17/17 10:37 CD (Rec: 10/17/17 10:37 CD [id number]) Injection Site MAR Injection Site Left Arm Charges for Administration # of Subcutaneous Administrations 1 Dextrose (Dextrose 5% In Water 1000 Ml) 1,000 mls @ 0 mls/hr IV .Q0M PRN; Protocol; Per Protocol PRN Reason: Hypoglycemia Protocol Insulin Human Lispro (Humalog Low) 0 units SC ACHS [facility] PRN Reason: Protocol Last Admin: 10/17/17 12:17 Dose: 1 unit MAR Blood Glucose Document 10/17/17 12:17 CD (Rec: 10/17/17 12:17 CD [id number]) Blood Glucose Finger Stick Blood Glucose (70-120) 184 Subcutaneous Administrations Document 10/17/17 12:17 CD (Rec: 10/17/17 12:17 CD [id number]) Injection Site MAR Injection Site Right Arm Charges for Administration # of Subcutaneous Administrations 1 Lisinopril (Zestril) 5 mg PO DAILY [facility] Last Admin: 10/17/17 10:38 Dose: 5 mg MAR Pulse and Blood Pressure Document 10/17/17 10:38 CD (Rec: 10/17/17 10:38 CD [id number]) Pulse Pulse Rate (60-90) 96 Blood Pressure Blood Pressure (100/60-150/90) 110/71 Metoprolol Tartrate (Lopressor) 12.5 mg PO BID [facility] Last Admin: 10/17/17 10:38 Dose: 12.5 mg MAR Pulse and Blood Pressure Document 10/17/17 10:38 CD (Rec: 10/17/17 10:38 CD [id number]) Pulse Pulse Rate (60-90) 96 Blood Pressure Blood Pressure (100/60-150/90) 110/71 Pantoprazole Sodium (Protonix Ec Tab) 40 mg PO 0600,1600 [facility] Last Admin: 10/17/17 06:12 Dose: 40 mg Discontinued Medications Al Hydrox/Mg Hydrox/Simethicone (Maalox Plus 30 Ml) 30 ml PO STAT STA Stop: 10/16/17 02:25 Last Admin: 10/16/17 02:43 Dose: 30 ml Nitroglycerin (Nitrostat Sl Tab) 0.4 mg SL STAT STA Stop: 10/16/17 03:53 Last Admin: 10/16/17 04:03 Dose: 0.4 mg Pantoprazole Sodium (Protonix Ec Tab) 40 mg PO STAT STA Stop: 10/16/17 02:25 Last Admin: 10/16/17 02:43 Dose: 40 mg - Yandyibe Statement The provider has reviewed the documentation as recorded by the Wayne Santana All medical record entries made by the Wayne were at my direction and personally dictated by me. I have reviewed the chart and agree that the record accurately reflects my personal performance of the history, physical exam, medical decision making, and the department course for this patient. I have also personally directed, reviewed, and agree with the discharge instructions and disposition. Disposition/Present on Arrival - Present on Arrival Any Indicators Present on Arrival: No History of DVT/PE: No History of Uncontrolled Diabetes: No Urinary Catheter: No History of Decub. Ulcer: No History Surgical Site Infection Following: None - Disposition Have Diagnosis and Disposition been Completed?: Yes Diagnosis: Chest pain, SOB (shortness of breath) Disposition: HOSPITALIZED Disposition Time: 03:45 Patient Plan: Admission Condition: GOOD
[2017-10-15 23:30] LABS: BASO # 0.04 K/mm3 (0.0-2.0); BASO % 0.3 % (0.0-3.0); EOS # 0.2 (0.0-0.7); GRAN # 6.85 (1.4-6.5); GRAN % 57.4 % (50.0-68.0); HEMOGLOBIN 9.7 g/dL (12.0-16.0); LYMPH % 33.8 % (22.0-35.0); MEAN CELL VOLUME 76.4 fl (80.0-105.0); MEAN CORPUSCULAR HEMOGLOBIN 24.1 pg (25.0-35.0); MEAN CORPUSCULAR HGB CONC 31.6 g/dl (31.0-37.0); MEAN PLATELET VOLUME 10.1 fl (7.0-11.0); MONO # 0.8 (0.1-0.6); MONO % 6.5 % (1.0-6.0); RBC 4.02 10^6/uL (3.5-6.1); WHITE BLOOD COUNT 11.9 10^3/ul (4.5-11.0)
[2017-10-15 23:37] LABS: PARTIAL THROMBOPLASTIN TIME 26.7 Seconds (25.1-36.5)
[2017-10-15 23:40] LABS: INR 1.04; PROTHROMBIN TIME 11.9 SECONDS (9.4-12.5)
[2017-10-16 00:01] LABS: ALB/GLOB RATIO 1.2 (1.1-1.8); ALBUMIN 3.7 g/dL (3.0-4.8); ALT/SGPT 25 U/L (7-56); AST/SGOT 21 U/L (14-36); BLOOD UREA NITROGEN 17 mg/dL (7-21); CALCIUM 8.5 mg/dL (8.4-10.5); GFR AFRICAN-AMERICAN > 60; GFR NON-AFRICAN AMERICAN > 60
[2017-10-16 00:08] LABS: B-TYPE NATRIURETIC PEPTIDE 2450 pg/mL (0-450); TROPONIN I 0.03 ng/mL
[2017-10-16 00:12] LABS: URINE BILIRUBIN NEGATIVE (NEGATIVE); URINE BLOOD NEGATIVE (NEGATIVE); URINE GLUCOSE (UA) >=1000 mg/dL (NEGATIVE); URINE LEUKOCYTE ESTERASE NEGATIVE Leu/uL (NEGATIVE); URINE PROTEIN NEGATIVE mg/dL (<30 mg/dL); URINE UROBILINOGEN 0.2 E.U./dL (<1 E.U./dL)
[2017-10-16 00:21] LABS: URINE APPEARANCE CLEAR (CLEAR); URINE COLOR YELLOW (YELLOW)
[2017-10-16] MEDS ORDERED: Alum-Mag Hydrox-Simethicone Susp (30 mL) PO STA (02:24)
[2017-10-16] MEDS ORDERED: Pantoprazole 40 mg EC Tab PO STA (02:24)
--- NOTE | 2017-10-16 03:47 | CP.PCM.HP ---
Addendum entered and electronically signed by Nidia Sheppard DO 10/16/17 06: 20: Please add physical exam to the following note: Head: normocephalic, atraumatic Eye exam: PERRLA, EOMI ENT: moist mucous membranes Neck exam: ROM intact, no thyromegaly Chest: nontender on palpation Heart: RRR, +S1, +S2, no murmurs, rubs, gallops Respiratory: CTA B/L GI: NT/ND, BS+ Extremities: pulses +2/4 throughout, trace pitting edema Neuro: CN II-XII intact, motor and sensation intact Original Note: <Nidia Sheppard - Last Filed: 10/16/17 05:47> History of Present Illness - History of Present Illness History of Present Illness: Nidia Sheppard, PGY-1, Internal Medicine History and Physical for Dr. Padron CC: Chest Pain 42 year old female with past medical history of STEMI with 2 KULWINDER on 09/17/17, systolic CHF with last LVEF 28%, diabetes mellitus type 2, hypertension, bells palsy, asthma, and fibroids presents with tightness like chest pain that started 3 days ago and radiates to the bilateral upper extremities, neck, and back. Patient reports that this pain feels like it did for the weeks preceding her prior [facility]. On this admission, she reports that the pain gets worse with exertion and is better with relaxation. Patient also reports regurgitation, but no cough, shortness of breath, or belching. Patient reports dizziness, and longstanding numbness in her feet. Patient reports diarrhea 3 days ago that was present for 3 consecutive days prior to that episode. There were drops of red blood mixed in with her stool. She has not had any other episodes of blood stool since 3 days ago. Patient denies nausea, vomiting, diaphoresis. Patient also denies headache, dysuria, hematuria. 12-point ROS except for what is mentioned above is negative. PMH: as stated above PSH: tubal ligation, cardiac stent placement on 09/17 Allergies: nifedipine-breaks out in hives FMHx: mother alive with scleroderma, father from stroke. Uncle and aunt on mother's side from VA. SHx: denies smoking, drinking, and recreational drug use PMD: Dr. Shen [facility]: [facility] Insurance: [employer] Present on Admission - Present on Admission Any Indicators Present on Admission: No History of DVT/PE: No History of Uncontrolled Diabetes: No Review of Systems - Constitutional Constitutional: absent: Anorexia, Chills, Fever, Headache - EENT Eyes: absent: Blurred Vision Nose/Mouth/Throat: absent: Nasal Congestion - Cardiovascular Cardiovascular: Chest Pain, Chest Pain with Activity, Radiating Pain (to arms and neck). absent: Diaphoresis, Dyspnea, Edema, Palpitations - Respiratory Respiratory: absent: Cough, Dyspnea, Hemoptysis, Stridor - Gastrointestinal Gastrointestinal: Diarrhea (with drops of blood 3 days ago). absent: Abdominal Pain, Constipation, Nausea, Vomiting - Reproductive: Female Reproductive:Female: Heavy Menses - Musculoskeletal Musculoskeletal: Back Pain (midline pain) - Neurological Neurological: Numbness (feet), Tingling (feet) - Endocrine Endocrine: absent: Polydipsia, Polyphagia, Polyuria Past Patient History - Infectious Disease Hx of Infectious Diseases: None - Past Social History Smoking Status: Never Smoked - CARDIAC Hx Cardiac Disorders: Yes Hx Heart Attack: Yes Hx Hypertension: Yes Other/Comment: cardiac cath x 1 stent. on life vest - PULMONARY Hx Respiratory Disorders: Yes Hx Asthma: Yes - NEUROLOGICAL Hx Neurological Disorder: (evans's palsy) - HEENT Hx HEENT Problems: No - RENAL Hx Chronic Kidney Disease: No - ENDOCRINE/METABOLIC Hx Endocrine Disorders: Yes Hx Diabetes Mellitus Type 2: Yes - HEMATOLOGICAL/ONCOLOGICAL Hx Blood Disorders: No - INTEGUMENTARY Hx Dermatological Problems: No - MUSCULOSKELETAL/RHEUMATOLOGICAL Hx Musculoskeletal Disorders: No Hx Falls: No - GASTROINTESTINAL Hx Gastrointestinal Disorders: No - GENITOURINARY/GYNECOLOGICAL Hx Genitourinary Disorders: Yes (TUBAL LIGATION,EXTOPIC ) - PSYCHIATRIC Hx Psychophysiologic Disorder: No Hx Substance Use: No - SURGICAL HISTORY Hx Coronary Stent: Yes (x2) Hx Tubal Ligation: Yes - ANESTHESIA Hx Anesthesia: Yes Hx Anesthesia Reactions: No Hx Malignant Hyperthermia: No Meds Allergies/Adverse Reactions: Allergies Allergy/AdvReac Type Severity Reaction Status Date / Time nifedipine Allergy ITCHING Verified 09/28/17 14:28 Results - Vital Signs Recent Vital Signs: Last Vital Signs Temp 98.0 F 10/15/17 23:10 Pulse 93 H 10/16/17 03:10 Resp 16 10/16/17 03:10 BP 107/76 10/16/17 03:10 Pulse Ox 99 10/16/17 03:10 - Labs Result Diagrams: 10/15/17 23:03 10/15/17 23:03 Assessment & Plan - Assessment and Plan (Free Text) Assessment: 42 year old female with past medical history of STEMI with 2 KULWINDER on 09/17/17, systolic CHF with last LVEF 28%, diabetes mellitus type 2, hypertension, bells palsy, asthma, and fibroids presents with tightness like chest pain that started 3 days ago and radiates to the bilateral upper extremities, neck, and back. Patient will be admitted for chest pain 2/2 to ACS vs. GERD. Plan: Atypical Chest pain 2/2 to ACS vs. GERD vs. anemia -Patient last had VA on 09/17 with 2 KULWINDER, last EF was 28% and on life vest. -EKG: NSR with heart rate of 99. -Troponin: 0.03. Will continue to trend troponinx3. -Chest X ray: shows life vest. no acute findings, no cardiomegaly -Patient given one time dose of maalox. This did not alleviate pain. -Patient was given sublingual nitroglycerin 0.4 mg stat. Will reevaluate for pain in the AM. -Continue home aspirin, plavis, lasix, lisinopril, lopressor. -Patient started on 40 mg protonix BID for possible reflex. -Possible echocardiogram in the AM pending cardiology recommendations. -Patient started on heart healthy and carbohydrate consistent diet. -O2 PRN. Maintain stats above 90%. -Dr. Aponte, Cardiology, consulted. Follow recommendations. Microcytic Anemia 2/2 to GI bleed vs. fibroids -Patient reports heavy menses for 5 days due to fibroids. -Hgb: 9.7. Baseline is 9.6-10.9. -Fecal leukocytes, stool culture, O&P, FOBT ordered for workup of diarrhea. -Dr. Donaldson, GI, consulted. Follow recommendations. -Patient should follow up with windmill technician for follow up for fibroids. -Iron, TIBC, and ferritin levels ordered. Follow up in the AM. -If due to low iron and ferritin, start patient on iron supplement. Subtherapeutic INR -Patient takes coumadin 3 mg daily at home. -Patient had subtheurapeutic INR of 1.04 on admission. -Will restart coumadin after talking to cardiology. Diabetes Mellitus Type II -Random glucose: 277 -Last HgbA1c on 09/18: 10.5. Lipid panel done showing elevated triglyceride levels but normal cholesterol levels. TSH was normal. -Patient is not on insulin despite high HgbA1c. Will figure out coverage of insulin over one full day for discharge. -UA: trace ketones, >1000 glucose -Accucheck ACHS -Hypoglycemia protocol PRN -Patient on medium dose sliding scale insulin. Elevated BNP likely 2/2 to left sided systolic CHF -Likely due to systolic CHF. Last LVEF was 28% and patient is on life vest. -Possible echocardiogram in the AM pending cardiology recommendations. -Continue home aspirin 81, clopidogrel 75, lasix 40, lisinopril 5, and lopressor 12.5. Leukocytosis likely 2/2 to stress response from pain -WBC: 11.9 -Continue to monitor. DVT prophylaxis: heparin 5000 U subq GI prophylaxis: protonix 40 mg stat dose given. Will also be given protonix 40 mg Q12. Patient seen and assessed with Dr. Padron. - Date & Time Date: 10/16/17 Time: 03:50 <Kassy Padron N - Last Filed: 10/17/17 06:26> Results - Vital Signs Recent Vital Signs: Last Vital Signs Temp 97.9 F 10/17/17 05:50 Pulse 72 10/17/17 05:50 Resp 20 10/17/17 05:50 BP 99/62 L 10/17/17 05:50 Pulse Ox 97 10/16/17 06:00 - Labs Result Diagrams: 10/16/17 06:00 10/16/17 06:00 Labs: Laboratory Results - last 24 hr 10/16/17 10/16/17 10/16/17 06:00 06:00 06:00 WBC 9.5 D RBC 3.88 Hgb 9.2 L Hct 29.6 L MCV 76.3 L MCH 23.7 L MCHC 31.1 RDW 16.0 H Plt Count 349 MPV 10.0 Gran % 47.1 L Lymph % (Auto) 42.9 H [place] % (Auto) 7.3 H Eos % (Auto) 2.3 Baso % (Auto) 0.4 Gran # 4.46 Lymph # (Auto) 4.1 H [place] # (Auto) 0.7 H Eos # (Auto) 0.2 Baso # (Auto) 0.04 PT INR APTT Sodium 142 Potassium 3.6 Chloride 103 Carbon Dioxide 29 Anion Gap 13 BUN 16 Creatinine 0.8 Est GFR ( Amer) > 60 Est GFR (Non-Af Amer) > 60 Random Glucose 161 H Calcium 8.3 L Phosphorus 3.2 Magnesium 2.1 Iron 22 L TIBC 361 % Saturation 6 L Ferritin 9.6 Total Bilirubin 0.2 AST 20 ALT 25 Alkaline Phosphatase 100 Troponin I 0.03 Total Protein 6.4 Albumin 3.4 Globulin 3.1 Albumin/Globulin Ratio 1.1 TSH 3rd Generation 10/16/17 10/16/17 10/16/17 06:00 07:00 14:05 WBC RBC Hgb Hct MCV MCH MCHC RDW Plt Count MPV Gran % Lymph % (Auto) [place] % (Auto) Eos % (Auto) Baso % (Auto) Gran # Lymph # (Auto) [place] # (Auto) Eos # (Auto) Baso # (Auto) PT 12.3 INR 1.07 APTT 27.2 Sodium Potassium Chloride Carbon Dioxide Anion Gap BUN Creatinine Est GFR ( Amer) Est GFR (Non-Af Amer) Random Glucose Calcium Phosphorus Magnesium Iron TIBC % Saturation Ferritin Total Bilirubin AST ALT Alkaline Phosphatase Troponin I 0.01 D Total Protein Albumin Globulin Albumin/Globulin Ratio TSH 3rd Generation 2.21
[2017-10-16] MEDS ORDERED: Dextrose 50% SYRINGE Inj (50 ml) IV PRN (04:24)
[2017-10-16] MEDS: Pantoprazole 40 mg EC Tab PO SCH ×2 (05:47→17:56)
[2017-10-16 06:02] VITALS: O2SAT 97
[2017-10-16 07:08] LABS: BASO # 0.04 K/mm3 (0.0-2.0); BASO % 0.4 % (0.0-3.0); EOS # 0.2 (0.0-0.7); EOS % 2.3 % (1.5-5.0); GRAN # 4.46 (1.4-6.5); GRAN % 47.1 % (50.0-68.0); HEMOGLOBIN 9.2 g/dL (12.0-16.0); LYMPH # 4.1 (1.2-3.4); LYMPH % 42.9 % (22.0-35.0); MEAN CELL VOLUME 76.3 fl (80.0-105.0); MEAN CORPUSCULAR HEMOGLOBIN 23.7 pg (25.0-35.0); MEAN CORPUSCULAR HGB CONC 31.1 g/dl (31.0-37.0); MONO # 0.7 (0.1-0.6); MONO % 7.3 % (1.0-6.0); RBC 3.88 10^6/uL (3.5-6.1); WHITE BLOOD COUNT 9.5 10^3/ul (4.5-11.0)
[2017-10-16 07:20] LABS: IRON 22 ug/dL (45-180)
[2017-10-16 07:28] LABS: ALB/GLOB RATIO 1.1 (1.1-1.8); ALBUMIN 3.4 g/dL (3.0-4.8); ALT/SGPT 25 U/L (7-56); AST/SGOT 20 U/L (14-36); BLOOD UREA NITROGEN 16 mg/dL (7-21); CALCIUM 8.3 mg/dL (8.4-10.5); GFR AFRICAN-AMERICAN > 60; GFR NON-AFRICAN AMERICAN > 60
[2017-10-16 07:30] LABS: TROPONIN I 0.03 ng/mL
[2017-10-16 07:31] LABS: % IRON SATURATION 6 % (20-55); TOTAL IRON BINDING CAPACITY 361 ug/dL (265-497)
[2017-10-16 07:43] LABS: INR 1.07; PARTIAL THROMBOPLASTIN TIME 27.2 Seconds (25.1-36.5); PROTHROMBIN TIME 12.3 SECONDS (9.4-12.5)
[2017-10-16] MEDS: Insulin Lispro (humaLOG) LOW Coverage SC SCH ×4 (08:52→22:03)
--- NOTE | 2017-10-16 10:31 | CARD ---
APPROVED REPORT Date of service: 10/15/2017 EKG Measurement Heart [id number] <Conclusion> Normal sinus rhythm Septal infarct, age undetermined Abnormal ECG
[2017-10-16 12:55] LABS: FERRITIN 9.6 ng/mL
--- NOTE | 2017-10-16 15:30 | RAD ---
Date of service: 10/16/2017 HISTORY: chest pain COMPARISON: Comparison chest 09/28/2017 TECHNIQUE: Chest PA and lateral FINDINGS: LUNGS: Note that the medial mid lung king partially obscured by overlying electronic cardiac devices Suspect minor bibasilar atelectasis. PLEURA: No significant pleural effusion identified. No pneumothorax apparent. CARDIOVASCULAR: Normal. OSSEOUS STRUCTURES: No significant abnormalities. VISUALIZED UPPER ABDOMEN: Normal. OTHER FINDINGS: None. IMPRESSION: Slightly limited study demonstrating minor bibasilar atelectasis
--- NOTE | 2017-10-16 15:52 | CON ---
Copied To: Carlos Donaldson MD Attending MD: Carlos Donaldson MD DATE: 10/16/2017 REQUESTING PHYSICIAN: Dr. Padron. REASON FOR CONSULTATION: I have been asked to see this 42 year-old female with multiple comorbidities including coronary artery disease status post coronary artery stent, drug-eluting stent x2 three weeks ago, cardiomyopathy with congestive heart failure with an LV ejection fraction of only 28%, type 2 diabetes mellitus, hypertension, Burns palsy, asthma, fibroids who is currently wearing a LifeVest defibrillator who I have been asked to see for rectal bleeding. The patient had an episode of scant rectal bleeding 3 days ago after having diarrhea for 3 days. The patient states that prior to diarrhea, she has had a hard bowel movements, for which she strained to move her bowels. She has not had any further rectal bleeding. She denies any family history of colon cancer. She denies any abdominal pain, nausea, vomiting, hematemesis or melena. PAST MEDICAL HISTORY: As above. PAST SURGICAL HISTORY: Notable for tubal ligation. SOCIAL HISTORY: She denies cigarette smoking or alcohol use. FAMILY HISTORY: Notable for father who from a CVA and a mother with scleroderma. PHYSICAL EXAMINATION: GENERAL: Young female lying in bed, in no acute distress. VITAL SIGNS: Reveal temperature of 97.7, blood pressure 103/61, heart rate of 86. HEENT: Reveal sclerae to be white. Conjunctivae pink. NECK: Supple. CHEST: Reveal decreased breath sounds. HEART: Reveals a regular rate and rhythm. ABDOMEN: Soft, nontender. No mass. EXTREMITIES: Show no edema. RECTAL: Shows the presence of small external hemorrhoids. There is no mass in the rectum. There is no blood in the rectal wall. LABORATORY DATA: Reveal hemoglobin 9.2, white blood cell count 9.5. Chemistries reveal BUN 16, creatinine 0.8. IMPRESSION: A 42-year-old female admitted with shortness of breath and exacerbation of her congestive heart failure with one episode of rectal bleeding. This happened after 3 days of diarrhea. I suspect that the bleeding is secondary to hemorrhoids. She has not had any bleeding since the one episode. There is no family history of colon cancer. RECOMMENDATIONS: Given the patient's extremely poor heart function requiring external defibrillator, I will defer colonoscopy at this time. There is a high suspicion that the bleeding is from hemorrhoids. If the patient's rectal bleeding continues; however, colonoscopy should be considered. Carlos Donaldson MD : 10/16/2017 11:26:56
[2017-10-17 05:51] VITALS: RESP 20
[2017-10-17] MEDS: Pantoprazole 40 mg EC Tab PO SCH (06:12)
[2017-10-17 07:28] LABS: BASO # 0.05 K/mm3 (0.0-2.0); BASO % 0.6 % (0.0-3.0); EOS # 0.3 (0.0-0.7); EOS % 2.9 % (1.5-5.0); GRAN # 4.03 (1.4-6.5); GRAN % 45.3 % (50.0-68.0); HEMOGLOBIN 9.8 g/dL (12.0-16.0); LYMPH # 3.9 (1.2-3.4); LYMPH % 43.9 % (22.0-35.0); MEAN CELL VOLUME 76.6 fl (80.0-105.0); MEAN CORPUSCULAR HEMOGLOBIN 23.9 pg (25.0-35.0); MEAN CORPUSCULAR HGB CONC 31.2 g/dl (31.0-37.0); MEAN PLATELET VOLUME 10.1 fl (7.0-11.0); MONO # 0.7 (0.1-0.6); MONO % 7.3 % (1.0-6.0); RBC 4.1 10^6/uL (3.5-6.1); WHITE BLOOD COUNT 8.9 10^3/ul (4.5-11.0)
[2017-10-17 07:43] LABS: INR 1.11; PARTIAL THROMBOPLASTIN TIME 27.7 Seconds (25.1-36.5); PROTHROMBIN TIME 12.8 SECONDS (9.4-12.5)
[2017-10-17] MEDS: Insulin Lispro (humaLOG) LOW Coverage SC SCH ×2 (08:08→12:17)
[2017-10-17 08:33] LABS: ALB/GLOB RATIO 1.1 (1.1-1.8); ALBUMIN 3.3 g/dL (3.0-4.8); ALT/SGPT 25 U/L (7-56); AST/SGOT 11 U/L (14-36); BLOOD UREA NITROGEN 15 mg/dL (7-21); CALCIUM 8.6 mg/dL (8.4-10.5); GFR AFRICAN-AMERICAN > 60; GFR NON-AFRICAN AMERICAN > 60
[2017-10-17 13:32] VITALS: BP 118/76; PULSE 91; TEMP 98.5
--- NOTE | 2017-10-17 13:43 | CP.PCM.DIS ---
Provider - Provider Date of Admission: 10/16/17 01:45 Attending physician: Nixon Olmedo MD Time Spent in preparation of Discharge (in minutes): 45 Diagnosis - Discharge Diagnosis (1) Chest pain Status: Resolved Priority: Medium (2) Anemia Status: Chronic Priority: Medium (3) CHF (congestive heart failure) Status: Chronic Priority: Medium (4) Diabetes mellitus Status: Chronic Priority: Medium Hospital Course - Lab Results Lab Results: Most Recent Lab Values WBC 8.9 10^3/ul (4.5-11.0) 10/17/17 06:00 RBC 4.10 10^6/uL (3.5-6.1) 10/17/17 06:00 Hgb 9.8 g/dL (12.0-16.0) L 10/17/17 06:00 Hct 31.4 % (36.0-48.0) L 10/17/17 06:00 MCV 76.6 fl (80.0-105.0) L 10/17/17 06:00 MCH 23.9 pg (25.0-35.0) L 10/17/17 06:00 MCHC 31.2 g/dl (31.0-37.0) 10/17/17 06:00 RDW 16.0 % (11.5-14.5) H 10/17/17 06:00 Plt Count 337 10^3/uL (120.0-450.0) 10/17/17 06:00 MPV 10.1 fl (7.0-11.0) 10/17/17 06:00 Gran % 45.3 % (50.0-68.0) L 10/17/17 06:00 Lymph % (Auto) 43.9 % (22.0-35.0) H 10/17/17 06:00 Willacy % (Auto) 7.3 % (1.0-6.0) H 10/17/17 06:00 Eos % (Auto) 2.9 % (1.5-5.0) 10/17/17 06:00 Baso % (Auto) 0.6 % (0.0-3.0) 10/17/17 06:00 Gran # 4.03 (1.4-6.5) 10/17/17 06:00 Lymph # (Auto) 3.9 (1.2-3.4) H 10/17/17 06:00 Willacy # (Auto) 0.7 (0.1-0.6) H 10/17/17 06:00 Eos # (Auto) 0.3 (0.0-0.7) 10/17/17 06:00 Baso # (Auto) 0.05 K/mm3 (0.0-2.0) 10/17/17 06:00 PT 12.8 SECONDS (9.4-12.5) H 10/17/17 06:00 INR 1.11 10/17/17 06:00 APTT 27.7 Seconds (25.1-36.5) 10/17/17 06:00 Sodium 141 mmol/L (132-148) 10/17/17 06:00 Potassium 4.2 mmol/L (3.6-5.0) 10/17/17 06:00 Chloride 104 mmol/L (98-107) 10/17/17 06:00 Carbon Dioxide 28 mmol/L (21-33) 10/17/17 06:00 Anion Gap 13 (10-20) 10/17/17 06:00 BUN 15 mg/dL (7-21) 10/17/17 06:00 Creatinine 0.8 mg/dl (0.7-1.2) 10/17/17 06:00 Est GFR ( Amer) > 60 10/17/17 06:00 Est GFR (Non-Af Amer) > 60 10/17/17 06:00 Random Glucose 145 mg/dL (70-110) H 10/17/17 06:00 Calcium 8.6 mg/dL (8.4-10.5) 10/17/17 06:00 Phosphorus 3.3 mg/dL (2.5-4.5) 10/17/17 06:00 Magnesium 2.1 mg/dL (1.7-2.2) 10/17/17 06:00 Iron 22 ug/dL (45-180) L 10/16/17 06:00 TIBC 361 ug/dL (265-497) 10/16/17 06:00 % Saturation 6 % (20-55) L 10/16/17 06:00 Ferritin 9.6 ng/mL 10/16/17 06:00 Total Bilirubin 0.5 mg/dL (0.2-1.3) 10/17/17 06:00 AST 11 U/L (14-36) L D 10/17/17 06:00 ALT 25 U/L (7-56) 10/17/17 06:00 Alkaline Phosphatase 101 U/L (38-126) 10/17/17 06:00 Troponin I 0.01 ng/mL D 10/16/17 14:05 NT-Pro-B Natriuret Pep 2450 pg/mL (0-450) H 10/15/17 23:03 Total Protein 6.2 g/dL (5.8-8.3) 10/17/17 06:00 Albumin 3.3 g/dL (3.0-4.8) 10/17/17 06:00 Globulin 2.9 gm/dL 10/17/17 06:00 Albumin/Globulin Ratio 1.1 (1.1-1.8) 10/17/17 06:00 TSH 3rd Generation 2.21 mIU/mL (0.46-4.68) 10/16/17 06:00 Urine Color Yellow (YELLOW) 10/15/17 23:53 Urine Appearance Clear (CLEAR) 10/15/17 23:53 Urine pH 6.0 (4.7-8.0) 10/15/17 23:53 Ur Specific Haines >= 1.030 (1.005-1.035) 10/15/17 23:53 Urine Protein Negative mg/dL (<30 mg/dL) 10/15/17 23:53 Urine Glucose (UA) >=1000 mg/dL (NEGATIVE) 10/15/17 23:53 Urine Ketones Trace mg/dL (NEGATIVE) H 10/15/17 23:53 Urine Blood Negative (NEGATIVE) 10/15/17 23:53 Urine Nitrate Negative (NEGATIVE) 10/15/17 23:53 Urine Bilirubin Negative (NEGATIVE) 10/15/17 23:53 Urine Urobilinogen 0.2 E.U./dL (<1 E.U./dL) 10/15/17 23:53 Ur Leukocyte Esterase Negative Jose/uL (NEGATIVE) 10/15/17 23:53 - Hospital Course Hospital Course: 42 year old female with past medical history of STEMI with 2 KULWINDER on 09/17/17, systolic CHF with last LVEF 28%, diabetes mellitus type 2, hypertension, bells palsy, asthma, and fibroids who was admitted for tightness-like chest pain and to rule out ACS. Patient was treated with lopressor, lisinopril, glipizide, lasix, plavix, lipitor, aspirin, and protonix. During the course of her hospital stay, patient got an EKG that showed NSR at 99 bpm, and no signs of ischemia. Chest xray showed minor bibasilar atelactasis. Patient instructed to continue home medications upon discharge. Patient was also instructed to stop taking coumadin and start new medications: Protonix 40mg by mouth daily, Feosol 324mg by mouth daily, and Colace 100mg twice daily as needed. She was educated on the correct way to take medications and to follow up at [facility] within 3-5 days of discharge and to follow up with [facility] for her uterine fibroid. Patient was instructed to resume activity as tolerated. Patient further informed to return to the ED for worsening or newly concerning symptoms.Patient is now medically stable for discharge. Discharge Exam - Head Exam Head Exam: ATRAUMATIC, NORMAL INSPECTION - Eye Exam Eye Exam: Normal appearance, PERRL - ENT Exam ENT Exam: Mucous Membranes Moist - Respiratory Exam Respiratory Exam: Clear to PA & Lateral. absent: Rales, Rhonchi, Wheezes, Respiratory Distress - Cardiovascular Exam Cardiovascular Exam: REGULAR RHYTHM, +S1, +S2. absent: Gallop, Rubs, Systolic Murmur - GI/Abdominal Exam GI & Abdominal Exam: Normal Bowel Sounds, Soft. absent: Tenderness - Extremities Exam Additional comments: no calf tenderness or pedal edema - Neurological Exam Neurological exam: Alert, CN II-XII Intact, Oriented x3 - Psychiatric Exam Psychiatric exam: Normal Affect, Normal Mood - Skin Skin Exam: Dry, Intact, Normal Color, Warm Discharge Plan - Discharge Medications Prescriptions: Docusate Sodium [Colace] 100 mg PO BID #14 capsule Ferrous Sulfate [Feosol] 324 mg PO DAILY #30 ect Pantoprazole [Protonix EC Tab] 40 mg PO DAILY #30 ect - Follow Up Plan Condition: GOOD Disposition: HOME/ ROUTINE Instructions: Heart Failure, Adult (DC) Additional Instructions: 1. Please start taking new medication: - Protonix 40mg by mouth daily, Feosol 324mg by mouth daily - For your constipation, take Colace 100mg twice daily as needed 2. Discontinue taking Coumadin 3. Please follow up at [facility] 4. Follow up with [facility] for your uterine fibroid 5. Return to the nearest emergency room if you experience worsening or newly concerning symptoms Referrals: [facility] [place]]
[2017-10-18] MEDS ORDERED: POLYETHYLENE GLYCOL 3350 17 GM/Dose PACKET PO SCH (10:00)
== END 2017-10-17 14:49 | disposition home or self-care (01) ==
LOC: ED 21:39 → ERH 10-16 01:45 → 2RSO 10-16 03:14
PROVIDERS: ADMIT Internal Medicine; ATTEND Internal Medicine
DX: R07.89 Other chest pain (principal); I11.0 Hypertensive heart disease with heart failure; I50.20 Unspecified systolic (congestive) heart failure; I25.10 Atherosclerotic heart disease of native coronary artery without angina pectoris; I42.9 Cardiomyopathy, unspecified; E11.9 Type 2 diabetes mellitus without complications; D64.9 Anemia, unspecified; D25.9 Leiomyoma of uterus, unspecified; G51.0 Bell's palsy; K62.5 Hemorrhage of anus and rectum; K64.9 Unspecified hemorrhoids; I25.2 Old myocardial infarction; J45.909 Unspecified asthma, uncomplicated; Z95.5 Presence of coronary angioplasty implant and graft; Z79.01 Long term (current) use of anticoagulants; Z79.84 Long term (current) use of oral hypoglycemic drugs; Z79.82 Long term (current) use of aspirin; Z82.3 Family history of stroke
CPT/HCPCS: 36415; 71046; 80053; 81003; 82728; 83540; 83550; 83735; 83880; 84100; 84443; 84484; 85025; 85610; 85730; 93005; 99285; G0378; J1644

== ENCOUNTER 2017-12-10 14:39 | Observation (INO) | payer MEDICAID, OTHER ==
[2017-12-10 15:09] VITALS: BMI 27.1
--- NOTE | 2017-12-10 15:10 | ED PDOC ---
Arrival/HPI - General Time Seen by Provider: 12/10/17 14:46 Historian: Patient - History of Present Illness Narrative History of Present Illness (Text): A 42 year old female, whose past medical history includes NC, Coronary Artery Disease 2 stents, HTN, HLD, DM, asthma, and tubal ligation, presents to the emergency department with a complaint of 5 day duration chest discomfort. The patient notes that the chest discomfort radiates towards her left arm at times. She notes that she currently has a LIFEVEST. The patient is currently asymptomatic here in the emergency department. The patient notes that she took Aspirin 81 mg today and was advised to come into the emergency department by PMD for further evaluation. She denies fevers, chills, headache, dizziness, sore throat, cough, shortness of breath, dyspnea on exertion, abdominal pain, nausea, vomiting, diarrhea, neck/back pain, urinary/bowel changes or any other complaint. PMD: Dr. Shen EP: Dr. Lemus 12/10/17 18:17 Time/Duration: Other (5 Days ) Symptom Onset: Sudden Symptom Course: Unchanged Activities at Onset: Rest, Light Context: Home Past Medical History - Provider Review Nursing Documentation Reviewed: Yes - Infectious Disease Hx of Infectious Diseases: None - Cardiac Hx Cardiac Disorders: Yes Hx NC: Yes Hx Hypertension: Yes Other/Comment: cardiac cath x 1 stent. on life vest - Pulmonary Hx Respiratory Disorders: Yes Hx Asthma: Yes - Neurological Hx Neurological Disorder: (evans's palsy) - HEENT Hx HEENT Disorder: No - Renal Hx Renal Disorder: No - Endocrine/Metabolic Hx Endocrine Disorders: Yes Hx Diabetes Mellitus Type 2: Yes - Hematological/Oncological Hx Blood Disorders: No - Integumentary Hx Dermatological Disorder: No - Musculoskeletal/Rheumatological Hx Musculoskeletal Disorders: No Hx Falls: No - Gastrointestinal Hx Gastrointestinal Disorders: No - Genitourinary/Gynecological Hx Genitourinary Disorders: Yes (TUBAL LIGATION,EXTOPIC ) - Psychiatric Hx Psychophysiologic Disorder: No Hx Substance Use: No - Surgical History Hx Coronary Stent: Yes (x2) Hx Tubal Ligation: Yes - Anesthesia Hx Anesthesia: Yes Hx Anesthesia Reactions: No Hx Malignant Hyperthermia: No Family/Social History - Physician Review Nursing Documentation Reviewed: Yes Family/Social History: No Known Family HX Smoking Status: Never Smoked Hx Alcohol Use: No Hx Substance Use: No Allergies/Home Meds Allergies/Adverse Reactions: Allergies nifedipine Allergy (Verified 12/10/17 15:03) ITCHING Review of Systems - Physician Review All systems were reviewed & negative as marked: Yes - Review of Systems Constitutional: absent: Fevers ENT: absent: Sore Throat Respiratory: absent: SOB, Cough Cardiovascular: Chest Pain (5 day duration chest discomfort intermittently radiates to left arm.). absent: MANN Gastrointestinal: absent: Abdominal Pain, Stool Changes, Diarrhea, Nausea, Vomiting Genitourinary Female: absent: Urine Output Changes Musculoskeletal: absent: Back Pain, Neck Pain Neurological: absent: Headache, Dizziness Physical Exam Vital Signs Reviewed: Yes Temperature: Afebrile Blood Pressure: Normal Pulse: Tachycardic Respiratory Rate: Normal Appearance: Positive for: Well-Appearing, Non-Toxic, Comfortable Pain Distress: None Mental Status: Positive for: Alert and Oriented X 3 - Systems Exam Head: Present: Atraumatic, Normocephalic Pupils: Present: PERRL Extroacular Muscles: Present: EOMI Conjunctiva: Present: Normal Mouth: Present: Moist Mucous Membranes Neck: Present: Normal Range of Motion Respiratory/Chest: Present: Clear to Auscultation, Good Air Exchange. No: Respiratory Distress, Accessory Muscle Use Cardiovascular: Present: Regular Rate and Rhythm, Normal S1, S2, Other (LIFEVEST in place). No: Murmurs Abdomen: No: Tenderness, Distention, Peritoneal Signs Back: Present: Normal Inspection Upper Extremity: Present: Normal Inspection. No: Cyanosis, Edema Lower Extremity: Present: Normal Inspection. No: Edema Neurological: Present: GCS=15, CN II-XII Intact, Speech Normal Skin: Present: Warm, Dry, Normal Color. No: Rashes Psychiatric: Present: Alert, Oriented x 3, Normal Insight, Normal Concentration Medical Decision Making ED Course and Treatment: Impression: A 42 year old female presents to the emergency department for a complaint of 5 day duration chest discomfort. Was seen previous at Dr. Winters office and sent here for CP. Moderate risk heart score- RF: 2, Age: 0, story: 1, EK, pending troponin. Will likely require obs for moderate risk CP Plan: -- EKG -- Chest X-ray -- Labs -- Reassess and disposition Prior Visits: Notes and results from previous visits were reviewed. Progress Notes: 12/10/17 15:57 EKG: Ordered, reviewed, and independently interpreted the EKG. Rate : 91 BPM Rhythm : NSR Interpretation : No STEMI 12/10/17 17:29 labs, xr unremarkable pt in NAD, resting comfortably given ASA for total for [address] appreciate consult w/ Dr. Jansen: admit to obs under her service. - Lab Interpretations I have reviewed the lab results: Yes - EKG Interpretation Interpreted by ED Physician: Yes Type: 12 lead EKG - Scribe Statement The provider has reviewed the documentation as recorded by the Scribe Beth Bañuelos Provider Scribe Attestation: All medical record entries made by the Scribe were at my direction and personally dictated by me. I have reviewed the chart and agree that the record accurately reflects my personal performance of the history, physical exam, medical decision making, and the department course for this patient. I have also personally directed, reviewed, and agree with the discharge instructions and disposition. Disposition/Present on Arrival - Present on Arrival Any Indicators Present on Arrival: Yes History of DVT/PE: No History of Uncontrolled Diabetes: No Urinary Catheter: No History Surgical Site Infection Following: None - Disposition Have Diagnosis and Disposition been Completed?: Yes Diagnosis: Chest pain Disposition: HOSPITALIZED Disposition Time: 17:29 Condition: GOOD
--- NOTE | 2017-12-10 15:57 | RAD ---
HISTORY: cp COMPARISON: Chest x-ray performed 10/16/17 TECHNIQUE: Chest, one view. FINDINGS: Examination limited by habitus. LUNGS: No focal consolidation. Please note that chest x-ray has limited sensitivity for the detection of pulmonary masses. PLEURA: No significant pleural effusion identified. No definite pneumothorax . CARDIOVASCULAR: The cardiomediastinal silhouette appears within normal limits of size. OSSEOUS STRUCTURES: No acute osseous abnormality identified. VISUALIZED UPPER ABDOMEN: Unremarkable. OTHER FINDINGS: None. IMPRESSION: No focal consolidation, significant pleural effusion, or definite pneumothorax identified.
[2017-12-10 16:06] LABS: BASO # 0.03 K/mm3 (0.0-2.0); BASO % 0.3 % (0.0-3.0); EOS # 0.2 (0.0-0.7); EOS % 1.8 % (1.5-5.0); GRAN # 7.17 (1.4-6.5); GRAN % 61.1 % (50.0-68.0); HEMOGLOBIN 10.6 g/dL (12.0-16.0); LYMPH # 3.5 (1.2-3.4); LYMPH % 30.1 % (22.0-35.0); MEAN CELL VOLUME 79.5 fl (80.0-105.0); MEAN CORPUSCULAR HGB CONC 31.5 g/dl (31.0-37.0); MEAN PLATELET VOLUME 10.5 fl (7.0-11.0); MONO # 0.8 (0.1-0.6); MONO % 6.7 % (1.0-6.0); RBC 4.24 10^6/uL (3.5-6.1); RED CELL DISTRIBUTION WIDTH 17.2 % (11.5-14.5); WHITE BLOOD COUNT 11.7 10^3/ul (4.5-11.0)
[2017-12-10 16:15] LABS: ALB/GLOB RATIO 1.2 (1.1-1.8); ALBUMIN 4.1 g/dL (3.0-4.8); ALT/SGPT 20 U/L (7-56); AST/SGOT 23 U/L (14-36); BLOOD UREA NITROGEN 19 mg/dL (7-21); CALCIUM 9.1 mg/dL (8.4-10.5); GFR NON-AFRICAN AMERICAN > 60
[2017-12-10 16:26] LABS: TROPONIN I < 0.01 ng/mL
[2017-12-10] MEDS ORDERED: Albuterol-Ipratrop 3 mg / 0.5 (3 ml) UD IH PRN (18:30)
--- NOTE | 2017-12-10 18:51 | CP.PCM.HP ---
<Ethan Oro - Last Filed: 12/10/17 19:15> History of Present Illness - History of Present Illness History of Present Illness: Ethan Oro PGY1 History and Physical for Dr Geetha Jansen Pt is a 42 yo female with a 42 year old female, whose PMH MO, CAD status post 2 stents, systolic CHF EF 29.5%, HTN, HLD, DM, asthma Burns's Palsy, and tubal ligation who presents to the ED complaining of a 5 day history of 5/10 substernal pressure like chest discomfort which is intermittent. She states that the pain radiates to her axilla bilaterally, but denies radiation to her neck or jaw. Pt states that the discomfort is worse when she lays on her side. Pt wears a LIFEPAK. She is currently asymptomatic in the emergency room. She states she took an omeprazole while at home but it did not help the discomfort. She states the discomfort feels like "gas trapped" in her chest, which is worse after e ating. She denies SOB, diaphoresis, fevers, chills, headache, dizziness, abdominal pain, nausea, vomiting, or diarrhea. A 12 point ROS was obtained and added to the HPI where appropriate. PMH: MO, CAD stent x2, HTN, HLD, DM, and asthma PSH: tubal ligation, cardiac stent placement on 09/17/2017 Allergies: nifedipine, hives FMHx: mother 63, scleroderma. Father 63, stroke. SHx: Tobacco denies, alcohol denies, drug use denies Home meds: metformin, omeprazole, metopropol, enalapril, glipizide, lasix, ferrous sulfate, colace, plavix, lipitor, asa PMD: Dr. Shen Pharmacy: [facility] [place] pharmacy Insurance: [employer] Present on Admission - Present on Admission Any Indicators Present on Admission: Yes History of Uncontrolled Diabetes: Yes Review of Systems - Review of Systems Review of Systems: a 12 point ROS was obtained and added to the HPI where appropriate Past Patient History - Infectious Disease Hx of Infectious Diseases: None - Past Social History Smoking Status: Never Smoked - CARDIAC Hx Cardiac Disorders: Yes Hx Heart Attack: Yes Hx Hypertension: Yes Other/Comment: cardiac cath x 1 stent. on life vest - PULMONARY Hx Respiratory Disorders: Yes Hx Asthma: Yes - NEUROLOGICAL Hx Neurological Disorder: (burns's palsy) - HEENT Hx HEENT Problems: No - RENAL Hx Chronic Kidney Disease: No - ENDOCRINE/METABOLIC Hx Endocrine Disorders: Yes Hx Diabetes Mellitus Type 2: Yes - HEMATOLOGICAL/ONCOLOGICAL Hx Blood Disorders: No - INTEGUMENTARY Hx Dermatological Problems: No - MUSCULOSKELETAL/RHEUMATOLOGICAL Hx Musculoskeletal Disorders: No Hx Falls: No - GASTROINTESTINAL Hx Gastrointestinal Disorders: No - GENITOURINARY/GYNECOLOGICAL Hx Genitourinary Disorders: Yes (TUBAL LIGATION,EXTOPIC ) - PSYCHIATRIC Hx Psychophysiologic Disorder: No Hx Substance Use: No - SURGICAL HISTORY Hx Coronary Stent: Yes (x2) Hx Tubal Ligation: Yes - ANESTHESIA Hx Anesthesia: Yes Hx Anesthesia Reactions: No Hx Malignant Hyperthermia: No Meds Home Medications: Home Medication List Medication Instructions Recorded Confirmed Type RX: Docusate Sodium [Colace] 100 mg PO PRN PRN #14 capsule 12/10/17 12/10/17 Rx Pantoprazole [Protonix] 40 mg PO BID 14 Days #28 ect 12/12/17 Rx RX: Carvedilol [Coreg] 3.125 mg PO BID 30 Days #60 tab 12/12/17 Rx Allergies/Adverse Reactions: Allergies Allergy/AdvReac Type Severity Reaction Status Date / Time nifedipine Allergy ITCHING Verified 12/10/17 18:48 Physical Exam - Constitutional Appears: Non-toxic, No Acute Distress - Head Exam Head Exam: ATRAUMATIC, NORMAL INSPECTION, NORMOCEPHALIC - Eye Exam Eye Exam: EOMI, Normal appearance. absent: Scleral icterus - ENT Exam ENT Exam: Mucous Membranes Moist, Normal Exam - Respiratory Exam Respiratory Exam: Clear to Auscultation Bilateral, NORMAL BREATHING PATTERN. absent: Accessory Muscle Use, Wheezes, Respiratory Distress - Cardiovascular Exam Cardiovascular Exam: RRR, +S1, +S2. absent: Diastolic murmur, Systolic Murmur - GI/Abdominal Exam GI & Abdominal Exam: Normal Bowel Sounds, Soft. absent: Tenderness - Extremities Exam Extremities exam: Positive for: pedal pulses present. Negative for: calf tenderness, pedal edema - Neurological Exam Neurological exam: Alert, Oriented x3 Additional comments: pt has left sided Alma Palsy - Psychiatric Exam Psychiatric exam: Normal Affect, Normal Mood - Skin Skin Exam: Dry, Intact, Warm Results - Vital Signs Recent Vital Signs: Last Vital Signs Temp 97.7 F 12/10/17 18:10 Pulse 97 H 12/10/17 18:10 Resp 16 12/10/17 18:10 BP 104/54 L 12/10/17 18:10 Pulse Ox 100 12/10/17 18:10 - Labs Result Diagrams: 12/10/17 15:59 12/10/17 15:59 Labs: Laboratory Results - last 24 hr 12/10/17 12/10/17 12/10/17 15:59 15:59 15:59 WBC 11.7 H D RBC 4.24 Hgb 10.6 L Hct 33.7 L MCV 79.5 L MCH 25.0 MCHC 31.5 RDW 17.2 H Plt Count 378 MPV 10.5 Gran % 61.1 Lymph % (Auto) 30.1 Stokes % (Auto) 6.7 H Eos % (Auto) 1.8 Baso % (Auto) 0.3 Gran # 7.17 H Lymph # (Auto) 3.5 H Stokes # (Auto) 0.8 H Eos # (Auto) 0.2 Baso # (Auto) 0.03 Sodium 138 Potassium 4.8 Chloride 105 Carbon Dioxide 25 Anion Gap 13 BUN 19 Creatinine 0.8 Est GFR ( Amer) > 60 Est GFR (Non-Af Amer) > 60 Random Glucose 82 Calcium 9.1 Magnesium 2.0 Total Bilirubin 0.5 AST 23 ALT 20 Alkaline Phosphatase 106 Troponin I < 0.01 NT-Pro-B Natriuret Pep 2070 H Total Protein 7.7 Albumin 4.1 Globulin 3.6 Albumin/Globulin Ratio 1.2 Assessment & Plan - Assessment and Plan (Free Text) Assessment: Pt is a 42 yo female with a 42 year old female, whose PMH MO, CAD status post 2 stents, systolic CHF EF 29.5%, HTN, HLD, DM, asthma Burns's Palsy, and tubal ligation who presents to the ED complaining of a 5 day history of 5/10 substernal pressure like chest discomfort which is intermittent. Plan: Chest pain, in a pt with CAD s/p 2 cardiac stents, ACS rule out - ECHO: 11/23/17 EF 29.5%, biatrial enlargment, severe MR, mild TR, global hypokinsis - follow up TSH, HA1C, Lipid panel, - Troponin negative x1, continue to trend q6 - EKG shows no ST or T wave abnormalities, continue to trend q6 - ASA - plavix - Cardio consulted, Dr Lopez CHF, in pt with LifeVest, chronic not in acute exacerbation - lasix - metoprolol - lisinopril - continue wearing lifevest - daily wt - strict I/O DM - ISS med - accuchecks - continue to monitor - hold metformin and sulfonylurea at this time HLD - lipitor - follow up lipid panel HTN - lisinopril - metoprolol Asthma - duonebs PRN Ppx - lovenox - pantoprazole Pt seen, examined, assessment and plan discussed with Dr Geetha Oro PGY1 Internal Medicine Resident - Date & Time Date: 12/10/17 Time: 18:55 <Geetha Jansen R - Last Filed: 12/14/17 11:46> Results - Vital Signs Recent Vital Signs: Last Vital Signs Temp 98.5 F 12/12/17 12:00 Pulse 83 12/12/17 12:00 Resp 19 12/12/17 12:00 BP 90/60 L 12/12/17 12:00 Pulse Ox 98 12/12/17 06:00 - Labs Result Diagrams: 12/12/17 06:00 12/11/17 06:00 Attending/Attestation - Attestation I have personally seen and examined this patient.: Yes I have fully participated in the care of the patient.: Yes I have reviewed all pertinent clinical information: Yes Notes (Text): Patient seen and examined by me with resident at 5:30PM with resident 12/10/17. Case including HPI, physical exam, and assessment and plan discussed with resident. Agree with above with following additions/corrections. Patient is a 42 year old female with past medical history significant for MO, CAD s/p stent placement, systolic CHF with EF of 29.5%, hypertension, hyperlipidemia, DM2, mild intermittent asthma, and Alma Palsy that presents to the emergency room with chest pain. Patient states that the pain started approximately 5 days ago. She states that pain is worse at night. Pain radiates to bilateral underarms. Patient states that the chest discomfort tends to start after dinner when she lies down. Pain is also worse when she lies on her side. She states that the pain is also worsened when she has pillows on her back. She states the pain feels like is goes from her chest to her back. Patient states she is getting an ICD placement on Wednesday12/14/[address] Lemus. Patient denies any associated diaphoresis. No nausea or vomiting. Patient denies any shortness of breath or palpitations. Patient states she is compliant with her lifevest and wears it at all times. Patient denies any headaches, dizziness, or change in vision. No dysuria. No diarrhea. Patient states she has intermitt ent constipation which is chronic and patient takes stool softner when needed. No fevers or chills. 12 point review of systems reviewed by me. Please see above HPI. All other systems negative. Physical exam: Gen: Awake and alert lying in bed in no acute distress HEENT: Normocephalic, atraumatic. Extraocular muscles intact, pupils equal reactive. No scleral icterus. No pharyngeal erythema or exudate appreciated. Oropharynx is pink and moist. Neck is supple. Hearing grossly intact. Nose externally unremarkable. Cardiovascular: Normal rhythm. Normal S1, S2. No murmurs, rubs, or gallops appreciated Pulmonary: Normal respiratory effort. No rhonchi, rales, or wheezing appreciated. Gastrointestinal: Soft, nondistended. Nontender. Positive bowel sounds all 4 quadrants, no guarding. Musculoskeletal: Moves all extremities. No calf tenderness. No edema appreciated. Central nervous system: AAO x 3. CN2-12 grossly intact. 5 out of 5 muscle strength all extremities. Dermatologic: Skin warm and dry. Assessment and plan: Patient is a 42 year old female with past medical history significant for MO, CAD s/p stent placement, systolic CHF with EF of 29.5%, hypertension, hyperlipidemia, DM2, mild intermittent asthma, and Alma Palsy that presents to the emergency room with chest pain. 1. Chest pain in a patient with CAD s/p stent placement. First troponin within normal limits. Follow up serial troponins. Cardiology consulted, follow up recommendations. Continue home ASA, Plavix, Lipitor, and metoprolol. Follow up TSH, HgbA1C, and lipid panel. Monitor on telemetry. 2. Chronic systolic CHF. Compensated. Continue home Lasix. Continue with life vest. Patient to have ICD on 12/14/17 per patient. Continue home metoprolol and Lisinopril. 3. DM2. Placed on insulin sliding scale. Monitor accuchecks. Follow up HgbA1C 4. Hyperlipidemia. Continue home lipitor 5. Hypertension. Continue home Lisinopril, metoprolol, and lasix. 6. Mild intermittent asthma. Not in acute exacerbation. Continue nebulizer treatments as needed. 7. Chronic anemia. Continue home ferrous sulfate 8. GERD. Patient takes omeprazole at home. Placed on protonix here. 9. Patient is a full code. Case was discussed in detail with patient regarding current diagnosis and treatment plan. All questions answered.
--- NOTE | 2017-12-10 18:51 | CARD ---
APPROVED REPORT Date of service: 12/10/2017 EKG Measurement Heart [id number] <Conclusion> Normal sinus rhythm Possible Left atrial enlargement Nonspecific T wave abnormality
[2017-12-10] MEDS ORDERED: Influenza Vaccine 60 mcg/0.5 mL SYR (4YR UP) IM ONE (20:49)
[2017-12-10] MEDS ORDERED: Pneumococcal 23-Valent Vaccine IM ONE (20:49)
[2017-12-10] MEDS: Insulin Reg-MEDIUM-Coverage SC SCH (22:00)
[2017-12-11 07:32] LABS: HDL CHOLESTEROL 36 mg/dL (29-60)
[2017-12-11 07:43] LABS: LDL CHOLESTEROL 76 mg/dL (0-129); TROPONIN I < 0.01 ng/mL
[2017-12-11] MEDS: Insulin Reg-MEDIUM-Coverage SC SCH ×4 (07:58→21:46)
[2017-12-11] MEDS: Enoxaparin 40 mg Syringe SC SCH (09:12)
[2017-12-11 09:42] LABS: BASO # 0.04 K/mm3 (0.0-2.0); BASO % 0.5 % (0.0-3.0); EOS # 0.3 (0.0-0.7); EOS % 3.9 % (1.5-5.0); GRAN # 4.24 (1.4-6.5); GRAN % 49.4 % (50.0-68.0); HEMOGLOBIN 10.4 g/dL (12.0-16.0); LYMPH # 3.4 (1.2-3.4); LYMPH % 39.8 % (22.0-35.0); MEAN CELL VOLUME 79.9 fl (80.0-105.0); MEAN CORPUSCULAR HEMOGLOBIN 24.9 pg (25.0-35.0); MEAN CORPUSCULAR HGB CONC 31.2 g/dl (31.0-37.0); MEAN PLATELET VOLUME 10.7 fl (7.0-11.0); MONO # 0.6 (0.1-0.6); MONO % 6.4 % (1.0-6.0); RBC 4.17 10^6/uL (3.5-6.1); RED CELL DISTRIBUTION WIDTH 17.5 % (11.5-14.5); WHITE BLOOD COUNT 8.6 10^3/ul (4.5-11.0)
[2017-12-11 09:53] LABS: ALB/GLOB RATIO 1.1 (1.1-1.8); ALBUMIN 3.4 g/dL (3.0-4.8); ALT/SGPT 24 U/L (7-56); AST/SGOT 17 U/L (14-36); BLOOD UREA NITROGEN 16 mg/dL (7-21); GFR NON-AFRICAN AMERICAN > 60
[2017-12-11] MEDS ORDERED: Pantoprazole 40 mg EC Tab PO SCH ×2 (10:00→18:00)
--- NOTE | 2017-12-11 11:37 | CARD ---
APPROVED REPORT Date of service: 12/11/2017 EKG Measurement Heart [id number] <Conclusion> Normal sinus rhythm Nonspecific T wave abnormality Prolonged QT Abnormal ECG
[2017-12-11] MEDS: Pantoprazole 40 mg EC Tab PO SCH (16:41)
[2017-12-11 18:14] VITALS: O2SAT 98
--- NOTE | 2017-12-11 22:38 | CP.PCM.PN ---
Subjective - Date & Time of Evaluation Date of Evaluation: 12/11/17 Time of Evaluation: 22:38 - Subjective Subjective: Eb Inderjit PGY1 - Internal Medicine Seismograph Recorder - Hospital Progress Note Patient seen and examined at bedside this morning No acute events reported overnight; No acute issues voiced by patient at this time. Pressures were noted to be low overnight; however patient has been noted to live in low pressures of 100s/60s; Asymptomatic overnight. Patient notified to keep lifevest in place at all times. No events reported on tele monitor overnight. Patient reports her chest pain fluctuates w/ changing position and lying on her L side. She also reports a feeling of something stuck in her throat however denies any issues with eating/ swallowing. Denies any acid like symptoms Remainder of 12 system ROS is negative. Objective - Vital Signs/Intake and Output Vital Signs (last 24 hours): Temp Pulse Resp BP Pulse Ox 98.0 F 88 18 139/69 98 12/11/17 18:00 12/11/17 22:00 12/11/17 18:00 12/11/17 18:00 12/11/17 18:00 Intake and Output: 12/11/17 12/12/17 18:59 06:59 Intake Total 660 Output Total 600 Balance 60 - Medications Medications: Current Medications Aspirin (Ecotrin) 81 mg PO DAILY [facility] Last Admin: 12/11/17 09:11 Dose: 81 mg Atorvastatin Calcium (Lipitor) 20 mg PO DIN [facility] Last Admin: 12/11/17 17:29 Dose: 20 mg Carvedilol (Coreg) 3.125 mg PO BID [facility] Last Admin: 12/11/17 17:30 Dose: 3.125 mg Clopidogrel Bisulfate (Plavix) 75 mg PO DAILY [facility] Last Admin: 12/11/17 09:11 Dose: 75 mg Enoxaparin Sodium (Lovenox) 40 mg SC DAILY [facility]; Protocol Last Admin: 12/11/17 09:12 Dose: 40 mg Ferrous Sulfate (Feosol) 324 mg PO DAILY [facility] Last Admin: 12/11/17 09:11 Dose: 324 mg Furosemide (Lasix) 40 mg PO DAILY [facility] Last Admin: 12/11/17 09:14 Dose: 40 mg Insulin Human Regular (Humulin R Med) 0 units SC [facility]; Protocol Last Admin: 12/11/17 21:46 Dose: Not Given Lisinopril (Zestril) 5 mg PO DAILY [facility] Last Admin: 12/11/17 09:11 Dose: 5 mg Pantoprazole Sodium (Protonix Ec Tab) 40 mg PO 0600,1600 [facility] Last Admin: 12/11/17 16:41 Dose: 40 mg - Labs Labs: 12/11/17 06:00 12/11/17 06:00 Physical Exam - Constitutional Appears: Non-toxic, No Acute Distress, Sitting bed talking, Life vest in place - Head Exam Head Exam: ATRAUMATIC, NORMAL INSPECTION, NORMOCEPHALIC - Eye Exam Eye Exam: EOMI, Normal appearance. absent: Scleral icterus - ENT Exam ENT Exam: Mucous Membranes Moist, Normal Exam - Respiratory Exam Respiratory Exam: Clear to Auscultation Bilateral, NORMAL BREATHING PATTERN. absent: Accessory Muscle Use, Wheezes, Respiratory Distress - Cardiovascular Exam Cardiovascular Exam: RRR, +S1, +S2. absent: Diastolic murmur, Systolic Murmur - GI/Abdominal Exam GI & Abdominal Exam: Normal Bowel Sounds, Soft. absent: Tenderness - Extremities Exam Extremities exam: Positive for: pedal pulses present. Negative for: calf tenderness, pedal edema - Neurological Exam Neurological exam: Alert, Oriented x3 Additional comments: pt has left sided [place] Palsy - Psychiatric Exam Psychiatric exam: Normal Affect, Normal Mood - Skin Skin Exam: Dry, Intact, Warm Assessment and Plan - Assessment and Plan (Free Text) Assessment: Pt is a 42 yo female with a 42 year old female, whose PMH [place], CAD status post 2 stents, systolic CHF EF 29.5%, HTN, HLD, DM, asthma Burns's Palsy, and tubal ligation who presents to the ED complaining of a 5 day history of 5/10 substernal pressure like chest discomfort which is intermittent. Patient reports her chest pain fluctuates w/ changing position and lying on her L side. She also reports a feeling of something stuck in her throat however denies any issues with eating/ swallowing. Denies any acid like symptoms Plan: Chest pain, in a pt with CAD s/p 2 cardiac stents, ACS rule out; Most likely GERD? ECHO: 11/23/17 EF 29.5%, biatrial enlargment, severe MR, mild TR, global hypokinsis TSH, A1C, Lipid Panel All WNL Trop negative x3 No ST elevation on EKG Cardio consulted, Dr Lopez; Reccs pending Protonix 40 Inc from QD to BID Hx CHF Start Coreg 3.125 BID DC metoprolol Cw lasix Cw lisinopril continue wearing lifevest - daily wt - strict I/O DM Cw ISS med Cw accuchecks - hold metformin and sulfonylurea at this time HLD - lipitor Lipid panel wnl HTN Cw lisinopril Coreg 3.125 Asthma - duonebs PRN Ppx - lovenox - pantoprazole DISPO: Pending cardio reccs, patient is to go for placement of AICD Patient was seen, examined and discussed w/ attending physician Dr. Allyn Jansen DO PGY1 Internal Medicine Seismograph Recorder - Pager [phone]
[2017-12-12] MEDS: Pantoprazole 40 mg EC Tab PO SCH (05:08)
[2017-12-12 07:28] LABS: BASO # 0.05 K/mm3 (0.0-2.0); BASO % 0.5 % (0.0-3.0); EOS # 0.4 (0.0-0.7); EOS % 4.2 % (1.5-5.0); GRAN # 4.71 (1.4-6.5); GRAN % 51.5 % (50.0-68.0); HEMOGLOBIN 10.5 g/dL (12.0-16.0); LYMPH # 3.1 (1.2-3.4); LYMPH % 33.5 % (22.0-35.0); MEAN CELL VOLUME 79.6 fl (80.0-105.0); MEAN CORPUSCULAR HEMOGLOBIN 24.9 pg (25.0-35.0); MEAN CORPUSCULAR HGB CONC 31.3 g/dl (31.0-37.0); MEAN PLATELET VOLUME 10.6 fl (7.0-11.0); MONO # 0.9 (0.1-0.6); MONO % 10.3 % (1.0-6.0); RBC 4.22 10^6/uL (3.5-6.1); RED CELL DISTRIBUTION WIDTH 16.9 % (11.5-14.5); WHITE BLOOD COUNT 9.1 10^3/ul (4.5-11.0)
[2017-12-12] MEDS: Insulin Reg-MEDIUM-Coverage SC SCH ×2 (07:49→12:17)
[2017-12-12] MEDS: Enoxaparin 40 mg Syringe SC SCH (09:23)
[2017-12-12 12:43] VITALS: BP 90/60; PULSE 83; RESP 19; TEMP 98.5
--- NOTE | 2017-12-12 14:10 | CP.PCM.DIS ---
Provider - Provider Date of Admission: 12/10/17 16:36 Attending physician: Geetha Jansen DO Primary care physician: Alejandra Shen MD Consults: Cardiology - Mk Time Spent in preparation of Discharge (in minutes): 45 Diagnosis - Discharge Diagnosis (1) GERD (gastroesophageal reflux disease) Status: Acute (2) Chest pain Status: Acute (3) DM2 (diabetes mellitus, type 2) Status: Acute (4) CHF (congestive heart failure) Status: Chronic Priority: Medium Hospital Course - Lab Results Lab Results: Most Recent Lab Values WBC 9.1 10^3/ul (4.5-11.0) 12/12/17 06:00 RBC 4.22 10^6/uL (3.5-6.1) 12/12/17 06:00 Hgb 10.5 g/dL (12.0-16.0) L 12/12/17 06:00 Hct 33.6 % (36.0-48.0) L 12/12/17 06:00 MCV 79.6 fl (80.0-105.0) L 12/12/17 06:00 MCH 24.9 pg (25.0-35.0) L 12/12/17 06:00 MCHC 31.3 g/dl (31.0-37.0) 12/12/17 06:00 RDW 16.9 % (11.5-14.5) H 12/12/17 06:00 Plt Count 359 10^3/uL (120.0-450.0) 12/12/17 06:00 MPV 10.6 fl (7.0-11.0) 12/12/17 06:00 Gran % 51.5 % (50.0-68.0) 12/12/17 06:00 Lymph % (Auto) 33.5 % (22.0-35.0) 12/12/17 06:00 Moca % (Auto) 10.3 % (1.0-6.0) H 12/12/17 06:00 Eos % (Auto) 4.2 % (1.5-5.0) 12/12/17 06:00 Baso % (Auto) 0.5 % (0.0-3.0) 12/12/17 06:00 Gran # 4.71 (1.4-6.5) 12/12/17 06:00 Lymph # (Auto) 3.1 (1.2-3.4) 12/12/17 06:00 Moca # (Auto) 0.9 (0.1-0.6) H 12/12/17 06:00 Eos # (Auto) 0.4 (0.0-0.7) 12/12/17 06:00 Baso # (Auto) 0.05 K/mm3 (0.0-2.0) 12/12/17 06:00 Sodium 139 mmol/L (132-148) 12/11/17 06:00 Potassium 4.5 mmol/L (3.6-5.0) 12/11/17 06:00 Chloride 107 mmol/L (98-107) 12/11/17 06:00 Carbon Dioxide 21 mmol/L (21-33) 12/11/17 06:00 Anion Gap 14 (10-20) 12/11/17 06:00 BUN 16 mg/dL (7-21) 12/11/17 06:00 Creatinine 0.7 mg/dl (0.7-1.2) 12/11/17 06:00 Est GFR ( Amer) > 60 12/11/17 06:00 Est GFR (Non-Af Amer) > 60 12/11/17 06:00 POC Glucose (mg/dL) 206 mg/dL (65-110) H 12/12/17 11:27 Random Glucose 133 mg/dL (70-110) H 12/11/17 06:00 Hemoglobin A1c 8.4 % (4.2-6.5) H 12/10/17 21:31 Calcium 9.0 mg/dL (8.4-10.5) 12/11/17 06:00 Phosphorus 3.4 mg/dL (2.5-4.5) 12/12/17 06:00 Magnesium 2.0 mg/dL (1.7-2.2) 12/12/17 06:00 Total Bilirubin 0.5 mg/dL (0.2-1.3) 12/11/17 06:00 AST 17 U/L (14-36) 12/11/17 06:00 ALT 24 U/L (7-56) 12/11/17 06:00 Alkaline Phosphatase 101 U/L (38-126) 12/11/17 06:00 Troponin I < 0.01 ng/mL 12/11/17 06:00 NT-Pro-B Natriuret Pep 2070 pg/mL (0-450) H 12/10/17 15:59 Total Protein 6.5 g/dL (5.8-8.3) 12/11/17 06:00 Albumin 3.4 g/dL (3.0-4.8) 12/11/17 06:00 Globulin 3.1 gm/dL 12/11/17 06:00 Albumin/Globulin Ratio 1.1 (1.1-1.8) 12/11/17 06:00 Triglycerides 80 mg/dL (35-160) 12/11/17 06:00 Cholesterol 129 mg/dL (130-200) L 12/11/17 06:00 LDL Cholesterol Direct 76 mg/dL (0-129) 12/11/17 06:00 HDL Cholesterol 36 mg/dL (29-60) 12/11/17 06:00 TSH 3rd Generation 1.22 mIU/mL (0.46-4.68) 12/10/17 21:31 - Hospital Course Hospital Course: Eb Jansen DO PGY1 - Internal Medicine Animal Doctor - Hospital DC Summary: 42 year old female, whose PMH [place], CAD status post 2 stents, systolic CHF EF 29.5%, HTN, HLD, DM, asthma Burns's Palsy, and tubal ligation who presents to the ED complaining of a 5 day history of 5/10 substernal pressure like chest discomfort which is intermittent. She states that the pain radiates to her axilla bilaterally, but denies radiation to her neck or jaw. Pt states that the discomfort is worse when she lays on her side. Pt wears a LIFEPAK. She is currently asymptomatic in the emergency room. She states she took an omeprazole while at home but it did not help the discomfort. She states the discomfort feels like "gas trapped" in her chest, which is worse after eating. In the ED her EKG was NSR 85 w/ nonspecific T wave abnormalities and no gross ischemic changes. Her Chest xray showed no acute cardiopulmonary disease. Troponins were trended x3 negative. Patient admitted to [facility] w/ no significant alarms over night. Support Team Member evaluated patient and she has been cleared for discharge from a cardiology stand point. She is scheduled for placement of AICD this week w/ Dr. Lemus. Morning prior to discharge patient was seen and examined at bedside; No acute events/ complaints voiced at time of interview. Denies any chest pain, sob, palpitations. Remainder 12 system ROS negative She was given the following instructions upon discharge: *You were admitted to ensure your chest pain was not cardiac related. *You are scheduled to have an AICD placement by Dr. Clark at [facility] this Wednesday/ *Please follow up with your primary care doctor, Dr. Shen at [facility] once the AICD is placed; We have called and left a message to schedule an appointment for you *Please confirm your appointment by calling [phone] Please note the following changes in your home medications: - You will need to STOP taking Metoprolol/Lopressor - You will need to start taking Protonix 40mg twice a day for two weeks; After two weeks you may resume taking protonix once a day. - Please start taking the following medication: - Coreg 3.125mg twice a day - Please continue taking all of your other home medications as prescribed You have been given a packet about GERD, please follow the instructions provided If your symptoms worsen or new concerning symptoms arise please go to the nearest emergency department -------- Patient is medically optimized for discharge at this time. - Date & Time of H&P Date of H&P: 12/10/17 Time of H&P: 18:35 Discharge Exam - Head Exam Head Exam: ATRAUMATIC, NORMAL INSPECTION, NORMOCEPHALIC - Eye Exam Eye Exam: EOMI, Normal appearance, PERRL. absent: Scleral icterus Pupil Exam: PERRL - ENT Exam ENT Exam: Mucous Membranes Moist - Respiratory Exam Respiratory Exam: Clear to PA & Lateral, NORMAL BREATHING PATTERN, UNREMARKABLE. absent: Wheezes - Cardiovascular Exam Cardiovascular Exam: REGULAR RHYTHM, RRR, +S1, +S2. absent: Systolic Murmur - GI/Abdominal Exam GI & Abdominal Exam: Normal Bowel Sounds, Soft, Unremarkable. absent: Tenderness - Extremities Exam Extremities exam: normal capillary refill, pedal pulses present - Neurological Exam Neurological exam: Alert, CN II-XII Intact, Normal Gait, Oriented x3 - Psychiatric Exam Psychiatric exam: Normal Affect, Normal Mood - Skin Skin Exam: Dry, Intact, Normal Color, Warm Discharge Plan - Discharge Medications Prescriptions: Carvedilol [Coreg] 3.125 mg PO BID 30 Days #60 tab Pantoprazole [Protonix] 40 mg PO BID 14 Days #28 ect - Follow Up Plan Condition: GOOD Disposition: HOME/ ROUTINE Instructions: Heart Healthy Diet, Acid Reflux (Gastroesophageal Reflux Disease), Adult (DC), Diabetes Diet , Chest Pain (DC), Chest Pain (DC), Chest Pain (GEN) Additional Instructions: *You were admitted to ensure your chest pain was not cardiac related. *You are scheduled to have an AICD placement by Dr. Clark at [facility] this Wednesday/ *Please follow up with your primary care doctor, Dr. Shen at [facility] once the AICD is placed; We have called and left a message to schedule an appointment for you *Please confirm your appointment by calling [phone] Please note the following changes in your home medications: - You will need to STOP taking Metoprolol/Lopressor - You will need to start taking Protonix 40mg twice a day for two weeks; After two weeks you may resume taking protonix once a day. - Please start taking the following medication: - Coreg 3.125mg twice a day - Please continue taking all of your other home medications as prescribed You have been given a packet about GERD, please follow the instructions provided If your symptoms worsen or new concerning symptoms arise please go to the nearest emergency department Referrals: Alejandra Shen MD [Primary Care Provider] -
--- NOTE | 2017-12-12 23:19 | CON ---
DATE OF CONSULTATION: 12/12/2017 REFERRING PHYSICIAN: Keith Lopez MD HISTORY: The patient is a 42-year-old woman who presented with an episode of chest discomfort. The patient had previous multivessel PTCA and stent in the past. She has a depressed ischemic cardiomyopathy. She is scheduled for defibrillator placement in the next 48 hours at [facility] by Dr. Lemus. She currently has a LifeVest on with no issues. Her chest discomfort is gone. She is ambulating without symptoms. PAST MEDICAL HISTORY: Her past medical history includes hypertension and hypercholesterolemia. SOCIAL HISTORY: The patient does not smoke. A 14-point review of systems is reviewed in detail. Other than the above symptoms, no other cardiac symptoms are noted. The patient works as a automobile club travel counselor in [place] and she is on a visit from [place]. PHYSICAL EXAM: Blood pressure is 105/71, the heart rate is in the 80s. NECK: Negative JVD. LUNGS: Without rales. HEART: S1, S2. EXTREMITIES: Without edema. EKG shows no acute changes. Laboratories: Glucose is 170. Troponins are negative x3. Potassium and magnesium are normal. IMPRESSION: 1. Status post ischemic cardiomyopathy with multiple stents. 2. History of nonsustained VT. 3. Diabetes mellitus. 4. Hypertension. 5. Hypercholesterolemia. Given these findings, there is no evidence for acute coronary syndrome. The patient can be discharged. The patient is scheduled for defibrillator placement in 48 hours at [facility]. From a cardiac perspective, the patient can be discharged with appropriate followup in the next 2 days for ICD placement. Celso Terrazas MD
== END 2017-12-12 15:40 | disposition home or self-care (01) ==
LOC: ED 14:39 → ERH 16:36 → 2RNO 18:12
PROVIDERS: ADMIT Hospitalist; ATTEND Hospitalist
DX: K21.9 Gastro-esophageal reflux disease without esophagitis (principal); I25.10 Atherosclerotic heart disease of native coronary artery without angina pectoris; I25.5 Ischemic cardiomyopathy; I50.22 Chronic systolic (congestive) heart failure; I11.0 Hypertensive heart disease with heart failure; E11.9 Type 2 diabetes mellitus without complications; E78.00 Pure hypercholesterolemia, unspecified; I25.2 Old myocardial infarction; D64.9 Anemia, unspecified; J45.20 Mild intermittent asthma, uncomplicated; G51.0 Bell's palsy; Z95.5 Presence of coronary angioplasty implant and graft
CPT/HCPCS: 36415; 71045; 80053; 80061; 82948; 83036; 83735; 83880; 84100; 84443; 84484; 85025; 93005; 99285; G0378; J1650